=== PATIENT | male | born 1955 | race Caucasian/White ===

== ENCOUNTER → 2020-08-22 08:51 | Outpatient (POV) | payer OTHER, SELFPAY | PROVIDERS: Visit Provider Dermatology | DX: Z00.00 Encounter for general adult medical examination without abnormal findings (principal) ==

== ENCOUNTER → 2023-03-03 15:09 | Outpatient (CLI) | payer MEDICARE, OTHER, SELFPAY ==
[2023-03-03 16:23] LABS: Alanine Aminotransferase 62 U/L (12-78); Albumin Level 4.8 g/dl (3.5-5.0); Albumin/Globulin Ratio 1.7 (1.1-1.8); Alkaline Phosphatase 94 U/L (38-126); Anion Gap 15.1 mEq/L (5-15); Aspartate Amino Transferase 42 U/L (17-59); Bilirubin,Total 0.6 mg/dl (0.2-1.3); Blood Urea Nitrogen 19 mg/dl (9-20); Calcium 9.4 mg/dl (8.4-10.2); Carbon Dioxide 28 mmol/L (22.0-30.0); Chloride 103 mmol/L (98-107); Chol/HDL Ratio 4.7 (1-3.5); Cholesterol 214 mg/dl (140-200); Estimated Glomerular Filt Rate 67 ml/min (>60); GFR (African American) 81 ML/MIN (>60); Globulin 2.8 g/dL (1.3-3.2); Glucose 187 mg/dl (74-100); HDL Cholesterol 46 mg/dl (40-60); Potassium 5.1 mmoL/L (3.5-5.1); Sodium 141 mmol/L (136-145); Total Protein,Serum 7.6 g/dl (6.3-8.2); Triglycerides 346 mg/dl (30-150); VLDL Cholesterol 69 mg/dL (0-40)
[2023-03-03 16:47] LABS: Hemoglobin A1C 6.2 % (4.0-6.0)
== END ==
PROVIDERS: PCP Nurse Practitioner Family; Visit Provider Nurse Practitioner Family
DX: E78.5 Hyperlipidemia, unspecified (principal); R73.9 Hyperglycemia, unspecified
CPT/HCPCS: 80053; 80061; 83036

== ENCOUNTER 2023-07-14 13:09 | Outpatient (CLI) | payer MEDICARE, OTHER, SELFPAY ==
[2023-07-14 13:03] LABS: Basophils # 0.1 K/mm3 (0-0.2); Basophils % 0.8 % (0.1-2.0); Eosinophils # 0.1 K/mm3 (0.0-0.4); Eosinophils % 1.4 % (0.1-12.0); Hematocrit 50.2 % (42.0-52.0); Hemoglobin 16.2 g/dL (14.1-18.0); Lymphocytes # 1.3 K/mm3 (0.7-4.5); Lymphocytes % 14.2 % (10-50); Mean Corpuscular HGB Conc 32.4 g/dL (31.8-35.4); Mean Corpuscular Hemoglobin 31.7 pg (27.0-31.2); Mean Platelet Volume 8.6 fl (7.4-10.4); Monocytes # 0.7 K/mm3 (0.1-1.0); Monocytes % 8.1 % (1.7-9.3); Neutrophils # 6.7 K/mm3 (1.8-7.8); Neutrophils % 75.6 % (37.0-80.0); Platelet Count 225 K/mm3 (142-424); Red Blood Count 5.12 M/mm3 (4.60-6.20); Red Cell Distribution Width 13.1 % (11.5-17.5); White Blood Count 8.9 K/mm3 (4.8-10.8)
[2023-07-14 13:39] LABS: Alanine Aminotransferase 61 U/L (12-78); Albumin Level 5.2 g/dl (3.5-5.0); Albumin/Globulin Ratio 1.8 (1.1-1.8); Alkaline Phosphatase 109 U/L (38-126); Anion Gap 15.2 mEq/L (5-15); Aspartate Amino Transferase 44 U/L (17-59); Bilirubin,Total 0.7 mg/dl (0.2-1.3); Blood Urea Nitrogen 18 mg/dl (9-20); Calcium 10.6 mg/dl (8.4-10.2); Carbon Dioxide 27 mmol/L (22.0-30.0); Chloride 105 mmol/L (98-107); Chol/HDL Ratio 3.6 (1-3.5); Cholesterol 255 mg/dl (140-200); Estimated Glomerular Filt Rate 75 ml/min (>60); GFR (African American) 90 ML/MIN (>60); Globulin 2.9 g/dL (1.3-3.2); Glucose 145 mg/dl (74-100); HDL Cholesterol 71 mg/dl (40-60); Potassium 5.2 mmoL/L (3.5-5.1); Sodium 142 mmol/L (136-145); Total Protein,Serum 8.1 g/dl (6.3-8.2); Triglycerides 258 mg/dl (30-150); VLDL Cholesterol 52 mg/dL (0-40)
[2023-07-14 13:49] LABS: Direct LDL Cholesterol 135.14 mg/dL (100-129)
[2023-07-14 14:08] LABS: Thyroid Stimulating Hormone 1.47 uIU/mL (0.465-4.68)
[2023-07-14 15:31] LABS: Hemoglobin A1C 6.9 % (4.0-6.0)
== END 2023-07-14 23:59 | disposition home or self-care (01) ==
LOC: LAB.DROPOF 13:10
PROVIDERS: PCP Nurse Practitioner Family; Visit Provider Nurse Practitioner Family
DX: I10 Essential (primary) hypertension (principal); E78.5 Hyperlipidemia, unspecified; R73.09 Other abnormal glucose; K92.1 Melena; Z87.891 Personal history of nicotine dependence
CPT/HCPCS: 80053; 80061; 83036; 84443; 85025

== ENCOUNTER 2023-07-21 07:39 | Outpatient (CLI) | payer MEDICARE, OTHER, SELFPAY ==
--- NOTE | 2023-07-21 07:40 | CA_ITS ---
APPROVED REPORT EXAM: Comprehensive 2D, Doppler, and color-flow Echocardiogram Veterinary Meat Inspector: Dione Kessler RVT Ht: 5 ft 9 in Wt: 202lbs BSA: 2.07 BP: 118/110 mmHg Indications: MURMUR,HTN,HLD,CABG 2D Dimensions LA Volume 40.00 mL LA Volume Index 19.23 mL/m2 (M/F) 16-34 M-Mode Dimensions RVDd 3.10 cm (0.9-2.6) LA Diam 4.90 cm (1.9-4.0) LVDd 5.82 cm (3.5-5.7) LVDs 4.20 cm (3.5-5.7) IVSd 0.89 cm (0.6-1.1) PWd 0.76 cm (0.6-1.1) EF (Teich) 53.20% FS 27.80% EDV (Teich) 167.90 mL TAPSE 1.98 (<1.7) ESV (Teich) 78.60 mL LV Diastology E Decel Time 217 (160-240 msec) E/A Ratio 0.9 Aortic Valve MAHSA Index 1.82 cm2/m2 AoV Peak Zana. 244.0 (50-130 cm/s) AO Peak GR. 23.80 mmHg AO Mean GR. 11.90 (<5 mmHg) AO VTI 43.9 (18-25 cm) MAHSA (VTI) 3.86 (2.5-4.5 cm2) Mitral Valve MV E Max Zana. 79.0 (40-130 cm/s) MV A Velocity 91.0 (40-130 cm/s) E/A Ratio 0.87 MV PHT 63.0 ms Pulmonary Valve PV Peak Velocity 75.0 (50-150 cm/s) Left Ventricle The left ventricle is normal size. The left ventricular systolic function is normal. The left ventricular ejection fraction is within the normal range. There is increased LV wall thickness (IVSd 1.5 cm). There is no LVOT obstruction at rest. There is increased LVOT gradient with Valsalva maneuver at 35 mmHg. There is normal LV segmental wall motion. Diastolic function is indeterminate. LVEF is 60%. Right Ventricle The right ventricle is normal size. The right ventricular systolic function is normal. There is increased RV wall thickness. Atria Left atrium is mildly dilated. Right atrium is mildly dilated. There is no Doppler evidence of interatrial shunt. Aortic Valve The aortic valve is mildly thickened. There is no aortic valvular stenosis. No aortic regurgitation is present. Mitral Valve Chordal systolic anterior motion (LOWELL) is present. The mitral valve leaflets are mildly thickened. No evidence of mitral valve stenosis. Trace mitral regurgitation. Tricuspid Valve The tricuspid valve leaflets are thin and pliable. Trace tricuspid regurgitation. There is insufficient TR jet to estimate RVSP. Pulmonic Valve The pulmonary valve is normal in structure. Trace pulmonic regurgitation. Great Vessels The aortic root is normal in size. The ascending aorta is not well-visualized. IVC is normal in size and collapses >50% with inspiration. Pericardium There is no pericardial effusion. Other Information Study Quality: Fair Conclusion Normal biventricular systolic function. Increased LV wall thickness (IVSd 1.5 cm). There is no LVOT obstruction at rest. There is increased LVOT gradient with Valsalva maneuver at 35 mmHg. Mild biatrial dilation. No significant valvular stenosis or regurgitation. In the setting of increased LV wall thickness and mild biatrial dilation, further evaluation with cardiac MRI (amyloidosis protocol) and exercises stress echo to evaluate for provokable LVOT gradients are recommended. Electronically signed by : Leslee Ivy MD 07/24/2023 12:02:40
== END 2023-07-21 23:59 | disposition home or self-care (01) ==
LOC: RT 07:40
PROVIDERS: PCP Nurse Practitioner Family; Visit Provider Nurse Practitioner Family
DX: R01.1 Cardiac murmur, unspecified (principal)
CPT/HCPCS: 93306

== ENCOUNTER 2023-09-08 16:32 | Outpatient (CLI) | payer MEDICARE, OTHER, SELFPAY | END 2023-09-08 23:59 | disposition home or self-care (01) | LOC: LAB.DROPOF 16:34 | PROVIDERS: PCP Nurse Practitioner Family; Visit Provider Nurse Practitioner Family | DX: E11.9 Type 2 diabetes mellitus without complications (principal); E78.2 Mixed hyperlipidemia; I10 Essential (primary) hypertension ==

== ENCOUNTER 2023-09-10 08:48 | Outpatient (CLI) | payer MEDICARE, OTHER, SELFPAY ==
[2023-09-10 09:54] LABS: Hemoglobin A1C 6.1 % (4.0-6.0)
[2023-09-10 10:13] LABS: Chloride 104 mmol/L (98-107)
[2023-09-10 10:14] LABS: Potassium 4.6 mmoL/L (3.5-5.1); Sodium 138 mmol/L (136-145)
[2023-09-10 10:16] LABS: Alanine Aminotransferase 80 U/L (12-78); Aspartate Amino Transferase 42 U/L (17-59); Blood Urea Nitrogen 20 mg/dl (9-20); Estimated Glomerular Filt Rate 84 ml/min (>60); GFR (African American) 102 ML/MIN (>60)
[2023-09-10 10:17] LABS: Albumin Level 4.5 g/dl (3.5-5.0); Albumin/Globulin Ratio 1.9 (1.1-1.8); Alkaline Phosphatase 81 U/L (38-126); Anion Gap 11.6 mEq/L (5-15); Bilirubin,Total 0.4 mg/dl (0.2-1.3); Calcium 9.9 mg/dl (8.4-10.2); Carbon Dioxide 27 mmol/L (22.0-30.0); Globulin 2.4 g/dL (1.3-3.2); Glucose 122 mg/dl (74-100); Total Protein,Serum 6.9 g/dl (6.3-8.2)
== END 2023-09-10 23:59 | disposition home or self-care (01) ==
LOC: LAB 08:49
PROVIDERS: PCP Nurse Practitioner Family; Visit Provider Nurse Practitioner Family
DX: E11.9 Type 2 diabetes mellitus without complications (principal); I10 Essential (primary) hypertension; E78.2 Mixed hyperlipidemia; Z79.84 Long term (current) use of oral hypoglycemic drugs; Z87.891 Personal history of nicotine dependence
CPT/HCPCS: 36415; 80053; 83036

== ENCOUNTER 2023-12-15 13:50 | Outpatient (CLI) | payer MEDICARE, OTHER, SELFPAY ==
[2023-12-15 13:45] LABS: Microalbumin/Creatinine Ratio 96.6
[2023-12-15 13:47] LABS: Creatinine,Urine Random 139 mg/dL (Not Estab.)
[2023-12-15 14:16] LABS: Albumin Level 4.8 g/dl (3.5-5.0); Chloride 106 mmol/L (98-107)
[2023-12-15 14:17] LABS: Potassium 5.5 mmoL/L (3.5-5.1); Sodium 141 mmol/L (136-145)
[2023-12-15 14:19] LABS: Alanine Aminotransferase 36 U/L (12-78); Anion Gap 14.5 mEq/L (5-15); Aspartate Amino Transferase 28 U/L (17-59); Blood Urea Nitrogen 22 mg/dl (9-20); Carbon Dioxide 26 mmol/L (22.0-30.0); Estimated Glomerular Filt Rate 84 ml/min (>60); GFR (African American) 102 ML/MIN (>60)
[2023-12-15 14:20] LABS: Albumin/Globulin Ratio 1.8 (1.1-1.8); Alkaline Phosphatase 84 U/L (38-126); Bilirubin,Total 0.7 mg/dl (0.2-1.3); Calcium 9.5 mg/dl (8.4-10.2); Chol/HDL Ratio 3.8 (1-3.5); Cholesterol 160 mg/dl (140-200); Globulin 2.6 g/dL (1.3-3.2); Glucose 141 mg/dl (74-100); HDL Cholesterol 42 mg/dl (40-60); Total Protein,Serum 7.4 g/dl (6.3-8.2); Triglycerides 120 mg/dl (30-150); VLDL Cholesterol 24 mg/dL (0-40)
[2023-12-15 14:31] LABS: Direct LDL Cholesterol 86.49 mg/dL (100-129)
[2023-12-15 15:03] LABS: Hemoglobin A1C 6.1 % (4.0-6.0)
== END 2023-12-15 23:59 | disposition home or self-care (01) ==
LOC: LAB.DROPOF 13:51
PROVIDERS: PCP Nurse Practitioner Family; Visit Provider Nurse Practitioner Family
DX: E11.9 Type 2 diabetes mellitus without complications (principal); E78.2 Mixed hyperlipidemia; I10 Essential (primary) hypertension
CPT/HCPCS: 80053; 80061; 82043; 82570; 83036

== ENCOUNTER 2024-01-12 13:40 | Outpatient (CLI) | payer MEDICARE, OTHER, SELFPAY ==
[2024-01-12 13:02] LABS: Albumin Level 5.1 g/dl (3.5-5.0); Chloride 103 mmol/L (98-107); Sodium 137 mmol/L (136-145)
[2024-01-12 13:03] LABS: Potassium 5.6 mmoL/L (3.5-5.1)
[2024-01-12 13:05] LABS: Alanine Aminotransferase 41 U/L (12-78); Albumin/Globulin Ratio 1.8 (1.1-1.8); Alkaline Phosphatase 70 U/L (38-126); Anion Gap 13.6 mEq/L (5-15); Aspartate Amino Transferase 35 U/L (17-59); Bilirubin,Total 0.9 mg/dl (0.2-1.3); Blood Urea Nitrogen 17 mg/dl (9-20); Carbon Dioxide 26 mmol/L (22.0-30.0); Estimated Glomerular Filt Rate 84 ml/min (>60); GFR (African American) 102 ML/MIN (>60); Globulin 2.9 g/dL (1.3-3.2)
[2024-01-12 13:06] LABS: Calcium 9.8 mg/dl (8.4-10.2); Glucose 135 mg/dl (74-100)
== END 2024-01-12 23:59 | disposition home or self-care (01) ==
LOC: LAB.DROPOF 13:41
PROVIDERS: PCP Nurse Practitioner Family; Visit Provider Nurse Practitioner Family
DX: E11.9 Type 2 diabetes mellitus without complications (principal); E87.5 Hyperkalemia
CPT/HCPCS: 80053

== ENCOUNTER 2024-04-01 09:20 | Outpatient (CLI) | payer MEDICARE, OTHER, SELFPAY | END 2024-04-01 23:59 | disposition home or self-care (01) | LOC: LAB.DROPOF 04-03 09:04 | PROVIDERS: PCP Nurse Practitioner Family; Visit Provider Nurse Practitioner Family | DX: E11.9 Type 2 diabetes mellitus without complications (principal) | CPT/HCPCS: 36415; 80053; 80061; 82043; 82570; 83036; 83735; 84443 ==

== ENCOUNTER 2024-04-02 14:00 | Outpatient (CLI) | payer MEDICARE, OTHER, SELFPAY ==
[2024-04-02 13:59] LABS: Creatinine,Urine Random 110 mg/dL (Not Estab.)
[2024-04-02 14:25] LABS: Albumin Level 4.9 g/dl (3.5-5.0); Chloride 103 mmol/L (98-107); Potassium 4.9 mmoL/L (3.5-5.1); Sodium 141 mmol/L (136-145)
[2024-04-02 14:27] LABS: Alanine Aminotransferase 45 U/L (12-78); Aspartate Amino Transferase 28 U/L (17-59); Blood Urea Nitrogen 21 mg/dl (9-20); Estimated Glomerular Filt Rate 75 ml/min (>60); GFR (African American) 90 ML/MIN (>60)
[2024-04-02 14:28] LABS: Albumin/Globulin Ratio 1.9 (1.1-1.8); Alkaline Phosphatase 91 U/L (38-126); Anion Gap 16.9 mEq/L (5-15); Bilirubin,Total 0.7 mg/dl (0.2-1.3); Calcium 9.7 mg/dl (8.4-10.2); Carbon Dioxide 26 mmol/L (22.0-30.0); Chol/HDL Ratio 3.7 (1-3.5); Cholesterol 181 mg/dl (140-200); Globulin 2.6 g/dL (1.3-3.2); Glucose 150 mg/dl (74-100); HDL Cholesterol 49 mg/dl (40-60); Magnesium 2.1 mg/dl (1.6-2.3); Total Protein,Serum 7.5 g/dl (6.3-8.2); Triglycerides 148 mg/dl (30-150); VLDL Cholesterol 30 mg/dL (0-40)
[2024-04-02 14:39] LABS: Direct LDL Cholesterol 106.68 mg/dL (100-129)
[2024-04-02 15:12] LABS: Hemoglobin A1C 6.7 % (4.0-6.0)
[2024-04-02 15:24] LABS: Thyroid Stimulating Hormone 1.53 uIU/mL (0.465-4.68)
== END 2024-04-02 23:59 | disposition home or self-care (01) ==
LOC: LAB.DROPOF 04-06 13:47
PROVIDERS: PCP Nurse Practitioner Family; Visit Provider Nurse Practitioner Family
DX: E11.9 Type 2 diabetes mellitus without complications (principal); E87.5 Hyperkalemia; I10 Essential (primary) hypertension; E78.2 Mixed hyperlipidemia
CPT/HCPCS: 36415; 80053; 80061; 82043; 82570; 83036; 83735; 84443

== ENCOUNTER 2024-07-09 08:13 | Outpatient (CLI) | payer MEDICARE, OTHER, SELFPAY ==
[2024-07-09 15:11] LABS: Chloride 103 mmol/L (98-107); Potassium 5.5 mmoL/L (3.5-5.1); Sodium 142 mmol/L (136-145)
[2024-07-09 15:13] LABS: Alanine Aminotransferase 46 U/L (12-78); Aspartate Amino Transferase 33 U/L (17-59); Blood Urea Nitrogen 22 mg/dl (9-20); Estimated Glomerular Filt Rate 75 ml/min (>60); GFR (African American) 90 ML/MIN (>60)
[2024-07-09 15:14] LABS: Albumin/Globulin Ratio 1.7 (1.1-1.8); Alkaline Phosphatase 98 U/L (38-126); Anion Gap 17.5 mEq/L (5-15); Bilirubin,Total 0.7 mg/dl (0.2-1.3); Calcium 9.8 mg/dl (8.4-10.2); Carbon Dioxide 27 mmol/L (22.0-30.0); Chol/HDL Ratio 3.5 (1-3.5); Cholesterol 194 mg/dl (140-200); Globulin 2.9 g/dL (1.3-3.2); Glucose 144 mg/dl (74-100); HDL Cholesterol 55 mg/dl (40-60); Magnesium 2.1 mg/dl (1.6-2.3); Total Protein,Serum 7.9 g/dl (6.3-8.2); Triglycerides 177 mg/dl (30-150); VLDL Cholesterol 35 mg/dL (0-40)
[2024-07-09 15:25] LABS: Direct LDL Cholesterol 108.34 mg/dL (100-129)
[2024-07-09 15:28] LABS: Creatinine,Urine Random 80 mg/dL (Not Estab.)
[2024-07-09 15:29] LABS: Microalbumin/Creatinine Ratio 102.3
[2024-07-09 15:45] LABS: Hemoglobin A1C 6.4 % (4.0-6.0)
--- OUTSIDE RECORDS SUMMARY | 2024-07-12 08:15 | XMS_ITS | Data Portability ---
Author Organization [place] - [facility] ADMIN Address [address] [place] [id number] Care Team Providers Care Base Filler Name Role Phone LEOROMA CORDOVA Primary Care Provider Assessment No assessment recorded. Plan of Treatment Reminders Order Date Submit Date Provider Last Modified By Organization Details Last Modified Time Details Appointments SURGERY 15 2024 06:30A M Chey Jackson MD Not available Not available Not available Lab None recorded . Referral None recorded . Procedures None recorded . Surgeries None recorded . Imaging None recorded . Medication Orders None recorded . Patient TargetsNo targets recorded. Patient InstructionsNo instructions recorded. Reason for Referral None Reported. Results Created Date Observation Date Name Description Value Unit Range Abnormal Flag Note LastModifiedBy Organization Detail LastModifiedTime 07/30/19 24 07/30/2023 CBC AUTO NO DIFF (HEMO GRAM) WBC 6.7 K/uL 4.0-10 .5 Not Available [facility] ([facility]) [address] , [place], [address], 07/30/2023 10:54:27 07/30/19 24 07/30/2023 CBC AUTO NO DIFF (HEMO GRAM) RBC 4.7 M/mm3 4.7-6. 1 Not Available [facility] ([facility]) [address], [place], [address], 07/30/2023 10:54:27 07/30/19 24 07/30/2023 CBC AUTO NO DIFF (HEMO GRAM) HGB 14.9 gm/dL 13.5-1 8.0 Not Available [facility] ([facility]) [address] , [place], [address], 07/30/2023 10:54:27 07/30/19 24 07/30/2023 CBC AUTO NO DIFF (HEMO GRAM) HCT 44.1 % 42.0-5 2.0 Not Available [facility] ([facility]) [address], [place], [address], 07/30/2023 10:54:27 07/30/19 24 07/30/2023 CBC AUTO NO DIFF (HEMO GRAM) MCV 93.4 fL 78-100 Not Available [facility] ([facility]) [address], [place], [address], 07/30/2023 10:54:27 07/30/19 24 07/30/2023 CBC AUTO NO DIFF (HEMO GRAM) MCH 31.6 pg 27-31 high Not Available [facility] ([facility]) [address], [place], [address], 07/30/2023 10:54:27 07/30/19 24 07/30/2023 CBC AUTO NO DIFF (HEMO GRAM) MCHC 33.8 g/dL 32-36 Not Available [facility] ([facility]) [address] [place], [address], 07/30/2023 10:54:27 07/30/19 24 07/30/2023 CBC AUTO NO DIFF (HEMO GRAM) RDW 12.3 % 11.5-1 4.0 Not Available [facility] ([facility]) [address] [place], [address], 07/30/2023 10:54:27 07/30/19 24 07/30/2023 CBC AUTO NO DIFF (HEMO GRAM) platelet count 185 K/uL 150-45 0 Not Available [facility] ([facility]) [address] [place], [address], 07/30/2023 10:54:27 07/30/19 24 07/30/2023 CBC AUTO NO DIFF (HEMO GRAM) MPV 9.7 fL 6-9.5 high Not Available [facility] ([facility]) [address] , [place], [address], 07/30/2023 10:54:27 07/30/19 24 07/30/2023 CBC AUTO NO DIFF (HEMO GRAM) manual differential NO Not Available [facility] ([facility]) [address] , [place], [address], 07/30/2023 10:54:27 07/30/19 24 07/30/2023 PT (PROT HROMB IN TIME) W INR prothrombin time 10.1 secon ds 9.3-11 .4 Not Available [facility] ([facility]) [address] , [place], [address], 07/30/2023 11:23:19 07/30/19 24 07/30/2023 PT (PROT HROMB IN TIME) W INR INR 1.0 ratio 0.97-1 .05 INR is inten ded to be used ONLY for patie nts on stabl e oral antic oagul ant thera py. Thera peuti c Range s: 2.0-3 .0 Usual Thera peuti c Range 2.5-3 .5 For patie nts with histo ry of Multi ple Deep Vein Throm bus or Mecha nical Heart Valve s Not Available [facility] ([facility]) [address] , [place], [address], 07/30/2023 11:23:19 07/30/19 24 07/30/2023 COMP METAB OLIC PANEL sodium 139 mmol/ L 136-14 5 Not Available [facility] ([facility]) [address] , [place], [address], 07/30/2023 11:34:15 07/30/19 24 07/30/2023 COMP METAB OLIC PANEL potassium 4.5 mmol/ L 3.6-5. 0 Not Available [facility] ([facility]) [address], [place], [address], 07/30/2023 11:34:15 07/30/19 24 07/30/2023 COMP METAB OLIC PANEL chloride 103 mmol/ L 98-107 Not Available [facility] ([facility]) [address] , [place], [address], 07/30/2023 11:34:15 07/30/19 24 07/30/2023 COMP METAB OLIC PANEL carbon dioxide 26.6 mmol/ L 21.0-3 2.0 Not Available [facility] ([facility]) [address] , [place], [address], 07/30/2023 11:34:15 07/30/19 24 07/30/2023 COMP METAB OLIC PANEL anion gap 13.9 Not Available [facility] ([facility]) [address] , [place], [address], 07/30/2023 11:34:15 07/30/19 24 07/30/2023 COMP METAB OLIC PANEL glucose 121 mg/dL 70-120 high Not Available [facility] ([facility]) [address] , [place], [address], 07/30/2023 11:34:15 07/30/19 24 07/30/2023 COMP METAB OLIC PANEL BUN 15 mg/dL 7-18 Not Available [facility] ([facility]) [address] [place], [address], 07/30/2023 11:34:15 07/30/19 24 07/30/2023 COMP METAB OLIC PANEL creatinine 1.1 mg/dL 0.6-1. 3 Not Available [facility] ([facility]) [address] [place], [address], 07/30/2023 11:34:15 07/30/19 24 07/30/2023 COMP METAB OLIC PANEL glomerular filtration rate >60 mlper min 60- Not Available [facility] ([facility]) [address], [place], [address], 07/30/2023 11:34:15 07/30/19 24 07/30/2023 COMP METAB OLIC PANEL total protein 7.2 g/dL 6.4-8. 2 Not Available [facility] ([facility]) [address] , [place], [address], 07/30/2023 11:34:15 07/30/19 24 07/30/2023 COMP METAB OLIC PANEL albumin 4.3 g/dL 3.4-5. 0 Not Available [facility] ([facility]) [address] , [place], [address], 07/30/2023 11:34:15 07/30/19 24 07/30/2023 COMP METAB OLIC PANEL globulin 2.9 Not Available [facility] ([facility]) [address] , [place], [address], 07/30/2023 11:34:15 07/30/19 24 07/30/2023 COMP METAB OLIC PANEL alb/glob ratio 1.5 0.7-2 Not Available [facility] ([facility]) [address] , [place], [address], 07/30/2023 11:34:15 07/30/19 24 07/30/2023 COMP METAB OLIC PANEL calcium 9.2 mg/dL 8.5-10 .5 Not Available [facility] ([facility]) [address] , [place], [address], 07/30/2023 11:34:15 07/30/19 24 07/30/2023 COMP METAB OLIC PANEL bilirubin total 0.70 mg/dL 0.10-1 .00 Not Available [facility] ([facility]) [address], [place], [address], 07/30/2023 11:34:15 07/30/19 24 07/30/2023 COMP METAB OLIC PANEL AST (SGOT) 35 U/L 0-37 Not Available [facility] ([facility]) [address], [place], [address], 07/30/2023 11:34:15 07/30/19 24 07/30/2023 COMP METAB OLIC PANEL ALT (SGPT) 76 U/L 0-65 high Not Available [facility] ([facility]) [address], [place], [address], 07/30/2023 11:34:15 07/30/19 24 07/30/2023 COMP METAB OLIC PANEL alk phosphatase 98 U/L 46-116 Not Available [facility] ([facility]) [address], [place], [address], 07/30/2023 11:34:15 07/30/19 24 07/31/2023 CEA cea 3.9 NG/mL 0.0-4. 7 Nonsm okers <3.9 Smoke rs <5.6 . 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 Value s obtai geno with diffe rent assay metho ds or kits canno t be used inter childs earosalioy . Resul ts canno t be inter prete d as absol dillon evide nce of the prese nce [facility] . Perfo rmed at: - [facility] [place] [id number] [place] [address] Lab Direc tor: Alexandro aguilar PhD, Phone : [phone] Not Available [facility] ([facility]) [address], [place], [address], 07/31/2023 13:12:11 05/01/07/30/2023 CT, chest , w/ contr ast [facility] [address] [place] [address] Phone: Fax: Name: RONALD MARQUEZ Exam Date: 07/30/19 : 958 Age 68 years Gender : M Access ion: [id number] Physic myron: CASE, CHEY Facili ty: [place] Facili ty HSV: Outpat ient Exam: CT CHEST W CT CHEST, ABDOME N, AND PELVIS WITH CONTRA ST HISTOR Y: Colon mass. COMPAR GAURI: None. TECHNI QUE: Axial images were obtain ed from the lung apices throug h the pubic symphy sis by comput ed tomogr aphy after the admini strati on of IV contra st. Oral contra st was also admini stered . This study was perfor med with techni ques to keep radiat ion doses as low as reason ably achiev able, (ALARA ). Indivi dualiz ed dose reduct ion techni ques using automa marly exposu re contro l or adjust ment of mA and/or kV accord ing to the patien t's size were employ ed. FINDIN GS: Chest: There are multip le median sterno kailey wires. Heart size is enlarg ed. There is scatte red calcif ied residu a of old granul omatou s diseas e. There is no noncal cified adenop athy. A 2 mm nodule is identi fied in the right upper lobe on image 31. There is no pleura l or perica rdial effusi on. No acute osseou s change s are identi fied. Abdome n: There is fatty infilt ration of the liver. The gallbl adder is presen t. Spleen is normal in size. There is scatte red calcif ied residu a of old granul omatou s diseas e. There is no pancre atic mass or inflam matory change . Adrena l glands are unrema rkable . There is no hydron ephros is. There is athero sclero sis withou t aneury sm. There is no periao rtic adenop athy. No abnorm ally dilate d bowel is identi fied. Pelvis : There is a soft tissue mass in the region of the rectos igmoid juncti on. Correl ate with colono scopy result s. This measur es approx imatel y 2.7 x 2.6 cm. The findin g is best seen on image 67 of series 4. There is divert iculos is of the left colon. Oral contra st is seen in the colon. The append ix is normal . Urinar y bladde r is decomp ressed . There are bilate ral fat-co ntaini ng inguin al hernia s. There is no free fluid in the pelvis . No acute osseou s change s are identi fied. CONCLU MEGHANA: Right upper lobe pulmon inés nodule . Recomm end follow -up in 12 months . Soft tissue mass in the colon. Correl ate with colono scopy. No eviden ce of metast atic diseas e apprec iated. The films were review ed, interp reted, and dictat ed by Dr. Correa Transc ribed by Berto Amato PA-C Dictat ed By: JEREMY CORREA Transc ribed By: Jeremy Correa Transc ribed On: 07/30/19 12:28 PM Electr onical ly signed by: JEREMY CORREA 07/30/19 Thank you for referr RONALD Ortega to [facility]. Legall y authen ticate d by POPE JEREMY Julio 07-29 12:28: 02 CC'ed Logic: Orderi ng Provid er: CASE CHEY Attend ing Provid er: CASE CHEY Admitt ing Provid er: CASE CHEY [email or web address] [facility] [address] [facility], [place], [address], 08/06/2023 15:30:59 Result Notes None recorded. Procedures Surgical History Date Name Laterality Status Provider Name and Address Organization Details Recorded Time 2 Cancer Surgery completed Hilary RODRIGUEZ [facility] [place] 08/06/2023 10:26:40 2 Cancer Surgery completed Hilary RODRIGUEZ [facility] [place] 08/06/2023 10:26:26 procedure on heart completed Hilary WESLEY - [facility]NT [facility] [place] 08/06/2023 10:27:32 Imaging Results Imaging Date Name Status LastModified by Organiz ation Details LastModified Time 07/30/2023 CT, chest, w/ contrast completed [email or web address] [facility] [address], [place], [address], 08/06/2023 15:30:59 Procedure Notes None recorded. Medical Equipment None Reported. Allergies No known drug allergies Medications Name Sig Start Date Stop Date Status Note LastModified by Organization Details LastModified Time atorvastati n 40 mg tablet TAKE 1 TABLET BY MOUTH ONCE DAILY active Not Available Not Available No t Available metoprolol succinate ER 50 mg tablet,exte nded release 24 hr TAKE 1 TABLET BY MOUTH ONCE DAILY active Not Available Not Available No t Available lisinopril 5 mg tablet TAKE 1 TABLET BY MOUTH ONCE DAILY active Not Available Not Available No t Available metformin ER 500 mg tablet,exte nded release 24 hr TAKE 1 TABLET BY MOUTH ONCE DAILY active Not Available Not Available No t Available peg 3350-electr olytes 236 gram-22.74 gram-6.74 gram-5.86 gram solution DRINK 2000ML EVERY DAY BY MOUTH DIRECTED FOR 2 DAYS 08/02 completed Not Available Not Available Not Available Accu-Chek Guide test strips USE 1 STRIP THREE TIMES DAILY active Not Available Not Available No t Available Accu-Chek Guide Glucose Meter USE 1 TO CHECK GLUCOSE THREE TIMES DAILY 08/02 completed Not Available Not Available Not Available Vitals Date Recorded Body height Body mass index (BMI) Body weight Body temperature Oxygen saturation Oxygen saturation in Arterial blood by Pulse oximetry Heart rate Systolic blood pressure Diastolic blood pressure Provider Name and Address Organization Details Last Updated DateTime 4 172.72 cm 30.7 kg/m2 91228.3 g 98.9 [degF] 98 % 98 % 74 /min 211 mm[Hg] 101 mm[Hg] Hilary Grier [place] - [facility]NT [facility] [place] 10:23:49 Social History Question Answer Notes LastModified by Organizat ion Details LastModified Time Tobacco Smoking Status Current Every Day Smoker Hilary Grier [facility], [place] - [place] [facility] [place] 08/06/2023 10:24:11 Do You Have An Advance Directive? Yes [email or web address] Information not available 08/06/2023 What Is Your Level Of Alcohol Consumption? Moderate [email or web address] Information not available 08/06/2023 Are You Blind Or Do You Have Difficulty Seeing? No [email or web address] Information not available 08/06/2023 What Is Your Level Of Caffeine Consumption? None [email or web address] Information not available 08/06/2023 What Was The Date Of Your Most Recent Tobacco Screening? 08/03/2023 [email or web address] Information not available 08/06/2023 Are You Passively Exposed To Smoke? No [email or web address] Information no t available 08/06/2023 Do You Or Have You Ever Used Smokeless Tobacco? Never Used Smokeless Tobacco Information not available 08/06/2023 How Much Tobacco Do You Smoke? 0.5 PPD [email or web address] Information not available 08/06/2023 Do You Feel Stressed (tense, Restless, Nervous, Or Anxious, Or Unable To Sleep At Night)? [id number] [email or web address] Information not available 08/06/2023 Do You Use Any Illicit Or Recreational Drugs? No [email or web address] Information not available 08/06/2023 Has Tobacco Cessation Counseling Been Provided? No [email or web address] Information not available 08/06/2023 How Many Years Have You Smoked Tobacco? 40 [email or web address] Information not available 08/06/2023 Do You Or Have You Ever Used Any Other Forms Of Tobacco Or Nicotine? No [email or web address] Information not available 08/06/2023 Sex: Unknown Functional Status Question Answer Note LastModified by Organizat ion Details LastModified Time What is your exercise level? Occasional Information not available 08/06/2023 Mental Status None recorded. Family History Relationship Description Onset Age of this Age Resolved Age Notes LastModified by Organization Details LastModified Time Father Carcinoma in situ of urinary bladder primar y [email or web address] Not available 08/06/2023 10:25:15 Father Carcinoma of prostate primar y 19 yrs apart from leora r [email or web address] Not available 08/06/2023 10:25:38 Medical History Condition Response Hypertension Y High Cholesterol Y Past Encounters Encounter ID Performer Location Encounter Start Date Encounter Closed Date Diagnosis/Indication Diagnosis SNOMED-CT Code Diagnosis ICD10 Code Diagnosis Note [id number] Nikko Perales MD [facility] [address] [place] [address] 08/06/2023 10:04:38 08/06/2023 11:18:46 Rectal mass [id number] R19.00 Colonoscop y on July 30, 2023 demonstrat ed in the ascending colon multiple polyps that were resected. Findings of tubular adenoma multiple fragments with negative findings for any high-grade dysplasia or malignancy . Polyps in the transverse colon resected with findings of tubular adenoma multiple fragments negative for high-grade dysplasia or malignancy . Polyps in the descending colon found with tubular adenoma. Negative for high-grade dysplasia or malignancy . Multiple fragments of sessile serrated polyp. Negative for Cytotec epic atypia. Colon mass seen at 20 cm. Biopsies taken with superficia l fragments of colonic mucosa demonstrat ing focal high-grade dysplasia. CT scan of the chest abdomen pelvis performed on July 30, 2023. Signs of median sternotomy from prior cardiac surgery. No calcified lymph nodes or nodules. Small pulmonary nodule 2 mm in the right upper lobe. No pericardia l or pleural effusion. Fatty infiltrati on of the liver. No evidence of mass in the abdomen. In the pelvis soft tissue mass in the region of the rectosigmo id junction. Mass measures 2.7 x 2.6 cm. Diverticul osis of the left colon. Labs on July 30, 2023 with white blood cell count 6.7. Hemoglobin 14.9 and hematocrit 44.1. Platelet count [id number]. Normal renal function testing with GFR greater than 60. Normal total protein and albumin. Patient presents for evaluation on August 06, 2023. Discussed findings rectosigmo id mass on colonoscop y. Patient has evaluation with colorectal surgery upcoming. Discussed patient has at least serrated adenoma with high-grade dysplasia which needs to be resected. Will follow up additional testing for any invasive cancer. Multiple polyps seen on colonoscop y. Discussed considerat ion for genetic testing. Will follow-up Patient has appointmen t with Colorectal surgery [facility]. Will follow-up evaluation . Health Concerns Section Related Observation LastModified by Organization Detai ls LastModified Time None Recorded Concern Status LastModified by Organization Details LastModified Time None Recorded Advance Directives Directive Y: Payers Encounter Date Sequence Insurance Name Policy Number Policy Swenson Covered Member ID Swenson Member ID Guarantor Name 08/06/2023 1 [place]ARE[place] Salomón Marquez [id number] 2 Salomón Marquez 08/06/2023 2 [employer] - [employer] (MEDICARE SUPPLEMENT) Salomón Marquez [id number] Salomón Marquez Notes Date Note Type Note Provider Name and Address Organization Details Recorded Time 08/06/2023 text/html 68 yo M presents for evaluation of rectal mass. Patient recently seen by Gastroenterology and had colonoscopy performed on July 30, 2023. Colonoscopy on July 30, 2023 demonstrated in the ascending colon multiple polyps that were resected. Findings of tubular adenoma multiple fragments with negative findings for any high-grade dysplasia or malignancy. Polyps in the transverse colon resected with findings of tubular adenoma multiple fragments negative for high-grade dysplasia or malignancy. Polyps in the descending colon found with tubular adenoma. Negative for high-grade dysplasia or malignancy. Multiple fragments of sessile serrated polyp. Negative for Cytotec epic atypia. Colon mass seen at 20 cm. Biopsies taken with superficial fragments of colonic mucosa demonstrating focal high-grade dysplasia. CT scan of the chest abdomen pelvis performed on July 30, 2023. Signs of median sternotomy from prior cardiac surgery. No calcified lymph nodes or nodules. Small pulmonary nodule 2 mm in the right upper lobe. No pericardial or pleural effusion. Fatty infiltration of the liver. No evidence of mass in the abdomen. In the pelvis soft tissue mass in the region of the rectosigmoid junction. Mass measures 2.7 x 2.6 cm. Diverticulosis of the left colon. Labs on July 30, 2023 with white blood cell count 6.7. Hemoglobin 14.9 and hematocrit 44.1. Platelet count [id number]. Normal renal function testing with GFR greater than 60. Normal total protein and albumin. Patient presents for evaluation on August 06, 2023. Discussed findings rectosigmoid mass on colonoscopy. Patient has evaluation with colorectal surgery upcoming. Discussed patient has at least serrated adenoma with high-grade dysplasia which needs to be resected. Will follow up additional testing for any invasive cancer. Multiple polyps seen on colonoscopy. Discussed consideration for genetic testing. Will follow-up Nikko Perales MD [address], [place], [address], [place] - [facility] [place] [facility] [place] 08/06/2023 11:18:01
== END 2024-07-09 23:59 | disposition home or self-care (01) ==
LOC: LAB.DROPOF 07-12 08:14
PROVIDERS: PCP Nurse Practitioner Family; Visit Provider Nurse Practitioner Family
DX: E11.9 Type 2 diabetes mellitus without complications (principal); I10 Essential (primary) hypertension; E78.2 Mixed hyperlipidemia
CPT/HCPCS: 80053; 80061; 82043; 82570; 83036; 83735

== ENCOUNTER 2024-08-10 08:37 | Outpatient (CLI) | payer MEDICARE, OTHER, SELFPAY ==
--- OUTSIDE RECORDS SUMMARY | 2024-08-10 08:39 | XMS_ITS | Data Portability ---
Author Organization [place] - [facility] & [facility] ADMIN Address [address] [place] [address] Care Team Providers Care [employer] Switchboard Operator Name Role Phone LEOROMA CORDOVA Primary Care Provider [phone] Assessment No assessment recorded. Plan of Treatment Reminders Order Date Submit Date Provider Last Modified By Organization Details Last Modified Time Details Appointments SURGERY 15 2024 09:30A M Chey Jackson MD Not available Not [...] WBC 6.7 K/uL 4.0-10 .5 Not Available [facility] ([facility]) [address] , [place], [address], 07/30/2023 10:54:27 07/30/19 24 07/30/2023 CBC AUTO NO DIFF (HEMO GRAM) RBC 4.7 M/mm3 4.7-6. 1 Not Available [facility] ([facility]) [address], [place], [address], 07/30/2023 10:54:27 07/30/19 24 07/30/2023 CBC AUTO NO DIFF (HEMO GRAM) HGB 14.9 gm/dL 13.5-1 8.0 Not Available [facility] ([facility]) [address] , [place], [address], 07/30/2023 10:54:27 07/30/19 24 07/30/2023 CBC AUTO NO DIFF (HEMO GRAM) HCT 44.1 % 42.0-5 2.0 Not Available [facility] ([facility]) [address], [place], [address], 07/30/2023 10:54:27 07/30/19 24 07/30/2023 CBC AUTO NO DIFF (HEMO GRAM) MCV 93.4 fL 78-100 Not Available [facility] ([facility]) [address], [place], [address], 07/30/2023 10:54:27 07/30/19 24 07/30/2023 CBC AUTO NO DIFF (HEMO GRAM) MCH 31.6 pg 27-31 high Not Available [facility] ([facility]) [address], [place], [address], 07/30/2023 10:54:27 07/30/19 24 07/30/2023 CBC AUTO NO DIFF (HEMO GRAM) MCHC 33.8 g/dL 32-36 Not Available [facility] ([facility]) [address] [place], [address], 07/30/2023 10:54:27 07/30/19 24 07/30/2023 CBC AUTO NO DIFF (HEMO GRAM) RDW 12.3 % 11.5-1 4.0 Not Available [facility] ([facility]) [address] [place], [address], 07/30/2023 10:54:27 07/30/19 24 07/30/2023 CBC AUTO NO DIFF (HEMO GRAM) platelet count 185 K/uL 150-45 0 Not Available [facility] ([facility]) [address] [place], [address], 07/30/2023 10:54:27 07/30/19 24 07/30/2023 CBC AUTO NO DIFF (HEMO GRAM) MPV 9.7 fL 6-9.5 high Not Available [facility] ([facility]) [address] , [place], [address], 07/30/2023 10:54:27 07/30/19 24 07/30/2023 CBC AUTO NO DIFF (HEMO GRAM) manual differential NO Not Available [facility] ([facility]) [address] , [place], [address], 07/30/2023 10:54:27 07/30/19 24 07/30/2023 PT (PROT HROMB IN TIME) W INR prothrombin time 10.1 secon ds 9.3-11 .4 Not Available [facility] ([facility]) [address] , [place], [address], 07/30/2023 11:23:19 07/30/19 24 07/30/2023 PT (PROT [...] Mecha nical Heart Valve s Not Available [facility] ([facility]) [address] , [place], [address], 07/30/2023 11:23:19 07/30/19 24 07/30/2023 COMP METAB OLIC PANEL sodium 139 mmol/ L 136-14 5 Not Available [facility] ([facility]) [address] , [place], [address], 07/30/2023 11:34:15 07/30/19 24 07/30/2023 COMP METAB OLIC PANEL potassium 4.5 mmol/ L 3.6-5. 0 Not Available [facility] ([facility]) [address], [place], [address], 07/30/2023 11:34:15 07/30/19 24 07/30/2023 COMP METAB OLIC PANEL chloride 103 mmol/ L 98-107 Not Available [facility] ([facility]) [address] , [place], [address], 07/30/2023 11:34:15 07/30/19 24 07/30/2023 COMP METAB OLIC PANEL carbon dioxide 26.6 mmol/ L 21.0-3 2.0 Not Available [facility] ([facility]) [address] , [place], [address], 07/30/2023 11:34:15 07/30/19 24 07/30/2023 COMP METAB OLIC PANEL anion gap 13.9 Not Available [facility] ([facility]) [address] , [place], [address], 07/30/2023 11:34:15 07/30/19 24 07/30/2023 COMP METAB OLIC PANEL glucose 121 mg/dL 70-120 high Not Available [facility] ([facility]) [address] , [place], [address], 07/30/2023 11:34:15 07/30/19 24 07/30/2023 COMP METAB OLIC PANEL BUN 15 mg/dL 7-18 Not Available [facility] ([facility]) [address] [place], [address], 07/30/2023 11:34:15 07/30/19 24 07/30/2023 COMP METAB OLIC PANEL creatinine 1.1 mg/dL 0.6-1. 3 Not Available [facility] ([facility]) [address] [place], [address], 07/30/2023 11:34:15 07/30/19 24 07/30/2023 COMP METAB OLIC PANEL glomerular filtration rate >60 mlper min 60- Not Available [facility] ([facility]) [address], [place], [address], 07/30/2023 11:34:15 07/30/19 24 07/30/2023 COMP METAB OLIC PANEL total protein 7.2 g/dL 6.4-8. 2 Not Available [facility] ([facility]) [address] , [place], [address], 07/30/2023 11:34:15 07/30/19 24 07/30/2023 COMP METAB OLIC PANEL albumin 4.3 g/dL 3.4-5. 0 Not Available [facility] ([facility]) [address] , [place], [address], 07/30/2023 11:34:15 07/30/19 24 07/30/2023 COMP METAB OLIC PANEL globulin 2.9 Not Available [facility] ([facility]) [address] , [place], [address], 07/30/2023 11:34:15 07/30/19 24 07/30/2023 COMP METAB OLIC PANEL alb/glob ratio 1.5 0.7-2 Not Available [facility] ([facility]) [address] , [place], [address], 07/30/2023 11:34:15 07/30/19 24 07/30/2023 COMP METAB OLIC PANEL calcium 9.2 mg/dL 8.5-10 .5 Not Available [facility] ([facility]) [address] , [place], [address], 07/30/2023 11:34:15 07/30/19 24 07/30/2023 COMP METAB OLIC PANEL bilirubin total 0.70 mg/dL 0.10-1 .00 Not Available [facility] ([facility]) [address], [place], [address], 07/30/2023 11:34:15 07/30/19 24 07/30/2023 COMP METAB OLIC PANEL AST (SGOT) 35 U/L 0-37 Not Available [facility] ([facility]) [address], [place], [address], 07/30/2023 11:34:15 07/30/19 24 07/30/2023 COMP METAB OLIC PANEL ALT (SGPT) 76 U/L 0-65 high Not Available [facility] ([facility]) [address], [place], [address], 07/30/2023 11:34:15 07/30/19 24 07/30/2023 COMP METAB OLIC PANEL alk phosphatase 98 U/L 46-116 Not Available [facility] ([facility]) [address], [place], [address], 07/30/2023 11:34:15 07/30/19 24 07/31/2023 CEA cea 3.9 NG/mL 0.0-4. 7 Nonsm okers <3.9 Smoke rs <5.6 . 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 Value s obtai geno with diffe rent assay metho ds or kits canno t be used inter childs earosalioy . Resul ts canno t be inter prete d as absol ysleta del sur evide nce of the prese nce or [facility]en [facility] . Perfo rmed at: - [facility] [place] [address] [place] [address] Lab Direc tor: Alexandro aguilar PhD, Phone : [phone] Not Available [facility] ([facility]) [address], [place], [address], 07/31/2023 13:12:11 05/01/07/30/2023 CT, chest , w/ contr ast [facility] [address] [place] [address] Phone: Fax: Name: RONALD MARQUEZ Exam Date: 07/30/19 : 958 Age 68 years Gender : M Access ion: [id number] Physic myron: CASE, CHEY Facili ty: [facility] Facili ty HSV: Outpat ient [...] s change s are identi fied. CONCLU EMGHANA: Right upper lobe pulmon inés nodule . [...] Thank you for referr RONALD [facility] to [facility]. Legall y authen ticate d by POPE JEREMY Julio 07-29 12:28: 02 CC'ed Logic: Orderi ng Provid er: CASE CHEY Attend ing Provid er: CASE CHEY Admitt ing Provid er: CASE CHEY [email or web address] [facility] [address], [place], [address], 08/06/2023 15:30:59 Result Notes None recorded. Procedures Surgical History Date Name Laterality Status Provider Name and Address Organization Details Recorded Time 2 Cancer Surgery completed Hilary RODRIGUEZ [facility] & [place] 08/06/2023 10:26:40 2 Cancer Surgery completed Hilary RODRIGUEZ [facility] & [place] 08/06/2023 10:26:26 procedure on heart completed Hilary Grier [facility] & [place] 08/06/2023 10:27:32 Imaging Results Imaging Date Name Status LastModified by Rmaoniz danielle Details LastModified Time 07/30/2023 CT, chest, w/ contrast completed [email or web address] [facility] [address], [place], [address], 08/06/2023 15:30:59 Procedure Notes None recorded. Medical [...] completed Not Available Not Available Not Available sodium,pota ssium,mag sulfates 17.5 gram-3.13 gram-1.6 gram oral soln Take 6 ounces twice a day by oral route as directed for 1 day, for colonosco py prep. 2024 active Not Available Not Available Not Avai lable Accu-Chek Guide test strips USE 1 STRIP [...] Updated DateTime 4 172.72 cm 30.7 kg/m2 17930.3 g 98.9 [degF] 98 % 98 % 74 /min 211 mm[Hg] 101 mm[Hg] Hilary WESLEY [facility] & [place] 10:23:49 Social History Question Answer Notes LastModified by Organizat ion Details LastModified Time Tobacco Smoking Status Current Every Day Smoker Hilary Grier [facility], [facility] & [place] 08/06/2023 10:24:11 Do You Have An Advance Directive? Yes [email or web address] Information not available 08/06/2023 Are You Blind Or Do You Have Difficulty Seeing? No Information not available 08/06/2023 What Is Your Level Of Caffeine Consumption? None [email or web address] Information not available 08/06/2023 What Was The Date Of Your Most Recent Tobacco Screening? 08/03/2023 [email or web address] Information not available 08/06/2023 Are You Passively Exposed To Smoke? No [email or web address] Information not available 08/06/2023 How Much Tobacco Do You Smoke? 0.5 PPD [email or web address] Information not available 08/06/2023 Has Tobacco Cessation Counseling Been Provided? No [email or web address] Information not available 08/06/2023 How Many Years Have You Smoked Tobacco? 40 Information not available 08/06/2023 Sex: Unknown Functional Status Question Answer Note LastModified by Organizat ion Details LastModified Time Do you use any illicit or recreational drugs? No [email or web address] Information not available 08/06/2023 Do you or have you ever used any other forms of tobacco or nicotine? No Information not available 08/06/2023 What is your level of alcohol consumption? Moderate [email or web address] Information not available 08/06/2023 Do you or have you ever used smokeless tobacco? Never used smokeless tobacco [email or web address] Information not available 08/06/2023 What is your exercise level? Occasional [email or web address] Information not available 08/06/2023 Mental Status Question Answer Note LastModified by Organization D etails LastModified Time Do you feel stressed (tense, restless, nervous, or anxious, or unable to sleep at night)? [id number] [email or web address] Information not available 08/06/2023 Family History Relationship Description Onset Age of this Age Resolved Age Notes LastModified by Organization Details LastModified Time Father Carcinoma in situ of urinary bladder primar y [email or web address] Not available 08/06/2023 10:25:15 Father Carcinoma of prostate primar y 19 yrs apart from leora desai [email or web address] Not available 08/06/2023 10:25:38 Medical History Condition Response Hypertension Y High Cholesterol Y Past Encounters Encounter ID Performer Location Encounter Start Date Encounter Closed Date Diagnosis/Indication Diagnosis SNOMED-CT Code Diagnosis ICD10 Code Diagnosis Note [id number] Nikko Perales MD [facility] Oncology and H[facility]olog [facility] [address] [place] [address] 08/06/2023 10:04:38 08/06/2023 11:18:46 Rectal mass [id number] R19.00 Colonoscop y on July 30, 2023 [...] Hemoglobin 14.9 and hematocrit 44.1. Platelet count 183987. Normal renal function testing with GFR greater [...] Patient has appointmen t with Colorectal surgery [facility]. Will follow-up evaluation . Health Concerns Section Related Observation LastModified by Organization Detai ls LastModified Time None Recorded Concern Status LastModified by Organization Details LastModified Time None Recorded Advance Directives Directive Y: Payers Insurance Date Sequence Insurance Name Policy Number Policy Swenson Covered Member ID Swenson Member ID Guarantor Name 08/06/2023 2 [employer] Sal[place]ón Rios Raz [id number] Salomón Rios Raz 08/09/2024 1 [place] Salomón Colladoand [id number] Salomón Rios Raz 08/06/2023 2 [employer] (MEDICARE SUPPLEMENT) Salomón Rios Raz [id number] Salomón Rios Raz 08/09/2024 2 [employer] SUPPLEMENTAL - [employer]URANCE (MEDICARE SUPPLEMENT) Salomón Rios Raz [id number] Salomón Rios Raz 07/28/2023 3 [employer] SUPPLEMENTAL - [employer] (MEDICARE SUPPLEMENT) Salomón Rios Raz [id number] Salomón Colladoand Notes Date Note Type Note Provider Name [...] Hemoglobin 14.9 and hematocrit 44.1. Platelet count 088927. Normal renal function testing with GFR greater [...] genetic testing. Will follow-up Nikko Perales MD [address], [place], [address], [place] - [facility] [place] & [place] 08/06/2023 11:18:01
[2024-08-10 08:46] LABS: Anti-Centromere B Antibodies ND; Anti-DNA (DS) Ab Qn ND; Anti-Jo-1 ND; Antichromatin Antibodies ND; Antiscleroderma-70 Antibodies ND; RNP Antibodies ND; Sjogren's Anti-SS-A ND; Sjogren's Anti-SS-B ND
[2024-08-10 09:28] LABS: Basophils # 0.1 K/mm3 (0-0.2); Basophils % 0.6 % (0.1-2.0); Eosinophils # 0.2 Kmm3 (0.0-0.4); Eosinophils % 2.8 % (0.1-12.0); Hematocrit 42.4 % (42.0-52.0); Hemoglobin 14.4 g/dL (14.1-18.0); Immature Granulocytes # 0.02 10^3uL; Immature Granulocytes % 0.3 %; Lymphocytes # 1.3 K/mm3 (0.7-4.5); Lymphocytes % 16.1 % (10-50); Mean Corpuscular Volume 91.4 fl (80-94); Mean Platelet Volume 9.7 fl (7.4-10.4); Monocytes # 0.8 K/mm3 (0.1-1.0); Monocytes % 9.8 % (1.7-9.3); Neutrophils # 5.5 K/mm3 (1.8-7.8); Neutrophils % 70.4 % (37.0-80.0); Nucleated Red Blood Cells # 0 10^3/uL; Nucleated Red Blood Cells % 0 %; Platelet Count 223 K/mm3 (142-424); Red Blood Count 4.64 M/mm3 (4.60-6.20); Red Cell Distribution Width 12.5 % (11.5-17.5); Red Cell Distribution Width-SD 40.9 fL; White Blood Count 7.9 K/mm3 (4.8-10.8)
[2024-08-10 10:01] LABS: Alanine Aminotransferase 39 U/L (12-78); Albumin Level 5.2 g/dl (3.5-5.0); Albumin/Globulin Ratio 2.2 (1.1-1.8); Alkaline Phosphatase 104 U/L (38-126); Anion Gap 10.8 mEq/L (5-15); Aspartate Amino Transferase 27 U/L (17-59); Bilirubin,Total 0.7 mg/dl (0.2-1.3); Blood Urea Nitrogen 20 mg/dl (9-20); Carbon Dioxide 28 mmol/L (22.0-30.0); Chloride 105 mmol/L (98-107); Estimated Glomerular Filt Rate 75 ml/min (>60); GFR (African American) 90 ML/MIN (>60); Globulin 2.4 g/dL (1.3-3.2); Glucose 160 mg/dl (74-100); Potassium 4.8 mmoL/L (3.5-5.1); Sodium 139 mmol/L (136-145); Total Protein,Serum 7.6 g/dl (6.3-8.2)
[2024-08-10 10:17] LABS: Free T4 (Free Thyroxine) 1.23 ng/dl (0.78-2.19)
[2024-08-10 10:30] LABS: Thyroid Stimulating Hormone 3.21 uIU/mL (0.465-4.68)
[2024-08-11 12:11] LABS: Antinuclear Antibodies (ANA) Negative (Negative)
[2024-08-11 13:11] LABS: Thyroid Peroxidase Antibodies 10 IU/mL (0-34)
[2024-08-11 15:13] LABS: Thyroglobulin Level <1.0 IU/mL (0.0-0.9)
[2024-08-14 09:11] LABS: D001-IgE D pteronyssinus <0.10 kU/L (Class 0); D002-IgE D farinae <0.10 kU/L (Class 0); E001-IgE Cat Dander <0.10 kU/L (Class 0); E005-IgE Dog Dander <0.10 kU/L (Class 0); E072-IgE Mouse Urine <0.10 kU/L (Class 0); F026-IgE Pork < 0.10 kU/L (Class 0); F027-IgE Beef < 0.10 kU/L (Class 0); F088-IgE Lamb < 0.10 kU/L (Class 0); G002-IgE Bermuda Grass <0.10 kU/L (Class 0); G006-IgE Timothy Grass <0.10 kU/L (Class 0); I006-IgE Cockroach, German <0.10 kU/L (Class 0); Immunoglobulin E, Total 19 IU/mL (6-495); M001-IgE Penicillium chrysogen <0.10 kU/L (Class 0); M002-IgE Cladosporium herbarum <0.10 kU/L (Class 0); M003-IgE Aspergillus fumigatus <0.10 kU/L (Class 0); M006-IgE Alternaria alternata <0.10 kU/L (Class 0); O215-IgE Alpha-Gal < 0.10 kU/L (Class 0); T001-IgE Maple/Box Elder <0.10 kU/L (Class 0); T003-IgE Common Silver Birch <0.10 kU/L (Class 0); T006-IgE Cedar, Mountain <0.10 kU/L (Class 0); T007-IgE Oak, White <0.10 kU/L (Class 0); T008-IgE Elm, American <0.10 kU/L (Class 0); T010-IgE Walnut <0.10 kU/L (Class 0); T011-IgE Maple Leaf Sycamore <0.10 kU/L (Class 0); T014-IgE Cottonwood <0.10 kU/L (Class 0); T015-IgE Ash, White <0.10 kU/L (Class 0); T022-IgE Pecan, Hickory <0.10 kU/L (Class 0); T070-IgE White Mulberry <0.10 kU/L (Class 0); W001-IgE Ragweed, Short <0.10 kU/L (Class 0); W011-IgE Thistle, Russian <0.10 kU/L (Class 0); W014-IgE Pigweed, Common <0.10 kU/L (Class 0); W018-IgE Sheep Sorrel <0.10 kU/L (Class 0)
[2024-08-24 15:23] LABS: Immunoglobulin E, Total 19
[2024-08-28 12:18] LABS: Immunoglobulin E, Total 19 IU/mL (6-495)
== END 2024-08-10 23:59 | disposition home or self-care (01) ==
LOC: LAB 08:38
PROVIDERS: PCP Nurse Practitioner Family; Visit Provider Nurse Practitioner
DX: J30.89 Other allergic rhinitis (principal); L29.89 Other pruritus; L50.1 Idiopathic urticaria
CPT/HCPCS: 36415; 80053; 82785; 83520; 84439; 84443; 85025; 86003; 86008; 86038; 86376; 86800

== ENCOUNTER 2024-09-05 09:46 | Inpatient (IN) | payer MEDICARE, OTHER, SELFPAY ==
--- OUTSIDE RECORDS SUMMARY | 2024-08-16 01:20 | XMS_ITS | Continuity of Care Document ---
Author Organization [facility] Phone Care Team Providers Care Stain Applicator Name Role Phone VASILE WILLS Admitting ROMA LEO Primary Care VASILE WILLS Primary Attending VASILE WILLS Unavailable ALLERGIES AND ADVERSE REACTIONS ALLERGIES AND ADVERSE REACTIONS Code System Allergy Substance Adverse Reaction Date Reaction (Severity) Comment Status Reported By Updated By No Known Allergies [email or web address] on August 12, 2024 1:40:59 PM [facility] FAMILY HISTORY RELATION: Father Status: LIVING SNOMED-CT Diagnosis Age At Onset [id number] Cardiac pacemaker in situ RELATION: Mother Status: LIVING SNOMED-CT Diagnosis Age At Onset [id number] Hypertensive disorder RESULTS Patient: JIMMY RODRIGUEZ Date of : 1955 5 LABORATORY RESULTS Information is not available LABORATORY NARRATIVE RESULTS Information is not available RADIOLOGY RESULTS ORDER 100: CT CHEST W (LOINC : 27631-4) ORDER DATE: August 12, 2024 3:31:00 PM [facility] PERFORMING LAB: [address] [id number] Final Result Date: August 12 6:06:[address] [address] Name: MICHAEL MARQUEZ Exam Date: 08/12/2024 : 1955 Age 69 years Gender: M Physician: VASILE WILLS Facility: [facility] Facility HSV: Outpatient Exam: CT CHEST W EXAM: CT CHEST W CLINICAL INDICATION: Male, 69 years old. cancer of sigmoid colon COMPARISON: July 30, 2023 TECHNIQUE: Contiguous thin slice axial noncontrast CT images of the chest were obtained along with 2-D multiplanar reformatted images in the sagittal and coronal planes. DOSE LENGTH PRODUCT: 1041.44 mGy*cm DOSE OPTIMIZATION: This CT scan was performed with one or more of the following dose optimization techniques: iterative reconstruction, automatic exposure control, and/or manual adjustment of mAs and kVp according to the patient's size. This CT exam has been performed using low dose protocols to limit radiation exposure to as low as reasonably achievable. This center is recognized and certified by the [employer], a designation awarded to centers who have demonstrated faculty competency, clinical image excellence and radiation safety compliance requirements. FINDINGS: The thyroid gland is unremarkable. The heart size is normal. There is no pericardial effusion. Post CABG. The aorta and pulmonary arteries appear unremarkable. No axillary adenopathy. Large calcified mass lesion in the mediastinum superior and anterior to the right pulmonary artery, unchanged. The hilar and mediastinal structures are otherwise appear unremarkable. No concerning hilar or mediastinal adenopathy seen. The lungs are normally inflated and clear. No lung infiltrates, mass, pleural effusions, vascular congestion or pneumothorax are present. There is a 3 mm subpleural nodule in the right upper lobe, image 30\71 CT #6 The bones and soft tissues appear unremarkable. Abdomen and pelvis evaluated on separate study. IMPRESSION: Nonspecific 3 mm subpleural nodule right upper lobe. Follow-up as indicated for colon cancer surveillance This dictation was performed using voice recognition software and some phonetic and grammatical errors may be missed in proofreading. Electronically signed by: Indira Andino MD 08/12/2024 02:06 PM EDT RP Legally authenticated by TJ Woody 2024-08-12 14:06:27 Dictated By: Indira Andino Transcribed By: Transcribed On: 08/12/2024 2:06 PM Electronically signed by: Indira Andino 08/12/2024 Thank you for referring JIMMY MICHAEL to [facility]. Legally authenticated by TJ Woody 2024-08-12 14:06:27 ORDER 200: CT ABD PEL W IV C ONT ONLY (LOINC: 53557-3) ORDER DATE: August 12, 2024 3:31:00 PM [facility] PERFORMING LAB: [facility] [address] [facility] [id number] Final Result Date: August 12 6:35:19 PM [facility] [address] [place] [address] Name: MICHAEL MARQUEZ Exam Date: 08/12/2024 : 1955 Age 69 years Gender: M Physician: VASILE WILLS Facility: [facility] Facility HSV: Outpatient Exam: CT ABD PEL W (IV CONT ONLY) EXAM: CT ABDOMEN PELVIS WITH IV CONTRAST INDICATION: 69 years old Male cancer of sigoid colon COMPARISON: July 30, 2023 TECHNIQUE: Contiguous thin slice axial contrast-enhanced CT images of the abdomen and pelvis were obtained along with 2-D multiplanar reformatted images in the sagittal and coronal planes. CONTRAST: mL of intravenous contrast were used. DOSE LENGTH PRODUCT: 1041.44 mGy*cm DOSE OPTIMIZATION: This CT scan was performed with one or more of the following dose optimization techniques: iterative reconstruction, automatic exposure control, and/or manual adjustment of mAs and kVp according to the patient's size. This CT exam has been performed using low dose protocols to limit radiation exposure to as low as reasonably achievable. This center is recognized and certified by the [employer], a designation awarded to centers who have demonstrated faculty competency, clinical image excellence and radiation safety compliance requirements. FINDINGS: CT Abdomen: The lung bases are unremarkable. Normal heart size without pericardial effusion. The liver is normal alignment generalized low attenuation consistent with fatty infiltration. The gallbladder, pancreas, spleen and adrenal glands are unremarkable. There are punctate calcifications in the spleen. The kidneys and ureters are unremarkable. The stomach and small bowel appear unremarkable. There is no bowel wall thickening or obstruction. There is prominent haustra pattern in the colon at the junction between the ascending and transverse and transverse colon. The appendix is unremarkable. No mesenteric or retroperitoneal adenopathy seen. The mesentery/mesenteric fat is unremarkable. No abnormal masses, free air/fluid or fluid collections noted in the abdomen. The aorta and iliofemoral arteries are unremarkable. Unremarkable IVC and mesenteric vessels. The bones and soft tissues are unremarkable. CT Pelvis: Legally authenticated by TJ Woody 2024-08-12 14:35:19 The urinary bladder is unremarkable. Bilateral fat filled inguinal hernias. Presumed postoperative change in the rectosigmoid colon with localized irregular wall thickening and narrowing. No abnormal pelvic masses, free fluid or fluid collections are noted. The pelvic bones and soft tissues are unremarkable. IMPRESSION: Nonspecific findings in the proximal to mid colon likely insignificant. Consider correlation with direct visualization, colonoscopy. Presumed postoperative change in the rectosigmoid colon Fatty liver This dictation was performed using voice recognition software and some phonetic and grammatical errors may be missed in proofreading. Electronically signed by: Indira Andino MD 08/12/2024 02:35 PM EDT Dictated By: Indira Andino Transcribed By: Transcribed On: 08/12/2024 2:35 PM Electronically signed by: Indira Andino 08/12/2024 Thank you for referring JIMMY MICHAEL to [facility]. Legally authenticated by TJ Woody 2024-08-12 14:35:19 PATHOLOGY NARRATIVE RESULTS Information is not available MICROBIOLOGY RESULTS No Micro Labs/Results Exist for Patient BLOOD ADMIN RESULTS Information is not available MEDICATIONS HOME MEDICATIONS Status RXNORM NDC Medication Dose Route Frequency Dates Comments Reported By Updated By Drug Treatment Unknown DISCHARGE MEDICATIONS Status RXNORM NDC Medication Dose Route Frequency Dates Comments Physician Updated By No Discharge Medication Info rmation Available INPATIENT MEDICATIONS Status RXNORM NDC Medication Dose Route Frequency Rat e Quantity Dates Comments Physician Updated By No Inpatient Medication Info rmation Available SOCIAL HISTORY SOCIAL HISTORY SNOMED-CT Social History Element Description Effective Dates Offered Cessation Comment UpdatedBy [id number] Historical Tobacco smoking status Former Smoker [id number] on August 10, 2024 6:02:51 PM [facility] [id number] Historical Tobacco smoking status Current Every Day Smoker Yes 1/2 ppd [id number] on July 30, 2023 12:38:41 PM [facility] SOCIAL HISTORY - Gender Sex: Male SOCIAL HISTORY - Status : status i nformation is not available Intention in Next Year: intention information is not available SOCIAL HISTORY - Sexual Behavior Sexual Orientation Gender Identity SNOMED-CT Description SNO MED -CT Description Activity Level No of Partners Partner Type UpdatedBy Information is not available HEALTH CONCERNS Problems Concern Status Health Concern problem infor mation not available. Smoking Status Status Years Used Consumed packs p er day Health Concern smoking histo ry information not available. Family History Concern Status Health Concern family histor y information not available. ENCOUNTERS ENCOUNTER INFORMATION Reason for Visit CT CHEST ABD/PELVIS W/ Admission August 12, 2024 1:20:[address] [address] Discharge August 12, 2024 1:20:00 PM [facility] DISC HARGED TO HOME OR SELF CARE ENCOUNTER DIAGNOSES Notes information is not dayna ilable. Code System Diagnosis Onset Date Diagnosis information is not available. ABSTRACT DIAGNOSES Code System Diagnosis Updated By C18.7 ICD10 MALIGNANT NEOPLASM OF SIGMOI D COLON [id number] on July 07, 2024 12:50:35 PM UT C18.7 ICD10 MALIGNANT NEOPLASM OF SIGMOI D COLON [id number] on August 16, 2024 5:19:26 AM UT K76.0 ICD10 FATTY (CHANGE OF ) LIVER, NOT ELSEWHERE CLASSIFIED [id number] on August 16, 2024 5:19:30 AM [place] Z98.890 ICD10 OTHER SPECIFIED POSTPROCEDUR AL STATES [id number] on August 16, 2024 5:19:32 AM [facility] CARE TEAM Care Stain Applicator Role VASILE WILLS Admitting ROMA LEO Primary Care VASILE WILLS Primary Attending VASILE WILLS Referring CARE TEAM CARE supervisor riprap placing Role on Team Status Start Date End Date Update d By FELIPA BRANDON PCP normal July 07, 2024 12:50:36 PM UT August 12, 2024 1:20:00 PM [place] [id number] on July 07, 2024 12:50:36 PM UT JOHANN CLARK Referring normal July 07, 2024 12:50:36 PM UT August 12, 2024 1:20:00 PM [place] [id number] on July 07, 2024 12:50:36 PM [facility] JOHANN CLARK Attending normal July 07, 2024 12:50:36 PM UT August 12, 2024 1:20:00 PM [place] [id number] on July 07, 2024 12:50:36 PM [facility] JOHANN CLARK Admitting normal July 07, 2024 12:50:36 PM [facility] August 12, 2024 1:20:00 PM [facility] [id number] on July 07, 2024 12:50:36 PM [facility]
--- OUTSIDE RECORDS SUMMARY | 2024-08-16 08:45 | XMS_ITS | Continuity of Care Document ---
Author Organization [facility] Phone Care Team Providers Care Single Stroke Preformer Name Role Phone CASE, CHEY Del Rio Primary Attending ROMA LEO Primary Care CASE, CHEY Del Rio Surgeon CASE, CHEY W Admitting ALLERGIES AND ADVERSE REACTIONS ALLERGIES AND ADVERSE REACTIONS Code System Allergy Substance Adverse Reaction Date Reaction (Severity) Comment Status Reported By Updated By No Known Allergies [id number] on August 12, 2024 1:40:59 PM [facility] FAMILY HISTORY RELATION: Father Status: LIVING SNOMED-CT Diagnosis Age At Onset [id number] Cardiac pacemaker in situ RELATION: Mother Status: LIVING SNOMED-CT Diagnosis Age At Onset [id number] Hypertensive disorder MEDICATIONS HOME MEDICATIONS Status [facility] Medication Dose Route Frequency Dates Comments Reported By Updated By Active [id number] 53999 Atorvastatin Calcium Oral Tablet 40 MG 40.0 MG ORAL DAILY Last Dose: August 11, 2024 12:00: 00 PM [facility] [id number] on August 12, 2024 1:43:29 PM [facility] Active 063191 89459 baby aspirin (JOHNATHON) 81.0 MG ORAL DAILY Last Dose: August 11, 2024 12:00: 00 PM [facility] [id number] on August 12, 2024 1:43:41 PM [facility] Active 318835 43220 Coenzyme Q-10 Oral Capsule 200 MG 200.0 MG ORAL DAILY Last Dose: August 11, 2024 12:00: 00 PM [facility] [id number] on August 12, 2024 1:43:56 PM [facility] Active 307345 23953 Fish Oil Oral Capsule 1000 MG 1.0 CAP ORAL DAILY Last Dose: August 11, 2024 12:00: 00 PM [facility] PATIENT [id number] on August 12, 2024 1:44:12 PM [facility] Active 111024 866045 83378 metoprolol succin (TOPROL XL) 50.0 MG ORAL DAILY Last Dose: August 11, 2024 12:00: 00 PM [facility] [id number] on August 12, 2024 1:44:31 PM [facility] Active 560418 14427 Multivitamin Adult Oral Tablet 1.0 TAB ORAL DAILY Last Dose: August 11, 2024 12:00: 00 PM [facility] [id number] on August 12, 2024 1:45:00 PM [facility] Active 447395 57120 Osteo Bi-Flex Adv Triple St Oral Tablet 1.0 TAB ORAL DAILY Last Dose: August 11, 2024 12:00: 00 PM [facility] [id number] on August 12, 2024 1:45:16 PM [facility] Active 726050 12806 Vitamin D (Cholecalcif gerardo) Oral Tablet 25 MCG (1000 UT) 1.0 TAB ORAL DAILY Last Dose: August 11, 2024 12:00: 00 PM [facility] [id number] on August 12, 2024 1:45:33 PM [facility] Active 023762 157626 Losartan Potassium Oral Tablet 50 MG 1.0 TAB ORAL DAILY Last Dose: August 11, 2024 12:00: 00 PM [facility] PATIENT [id number] on August 12, 2024 1:44:23 PM [facility] Active 892554 679698 73530 amLODIPine Besylate Oral Tablet 10 MG 1.0 TAB ORAL DAILY Last Dose: August 11, 2024 12:00: 00 PM [facility] PATIENT [id number] on August 12, 2024 1:43:13 PM [facility] DISCHARGE MEDICATIONS Status [facility] Medication Dose Route Frequency Dates Comments Physician Updated By No Discharge Medication Info rmation Available INPATIENT MEDICATIONS Status [facility] Medication Dose Route Frequency Rat e Quantity Dates Comments Physician Updated By Ambar indarrell [id number] [phone] LACTATED RINGERS SOLN 1000. 0 ML INTRAV ENOUS ONE TIME ADMINISTRA TION (UNSCHEDUL ED) 25.0 ML/HR Start: August 11, 2024 6:40:0 0 PM [facility] End: August 12, 2024 9:14:0 0 PM [facility] KRYSTAL Jean [id number] on August 13, 2024 4:25:00 AM [facility] Ambar indarrell [id number] 7164 8004 904 sodium chloride 0.9% SOLN 1000. 0 ML INTRAV ENOUS ONE TIME ADMINISTRA TION (UNSCHEDUL ED) 25.0 ML/HR Start: August 11, 2024 6:40:0 0 PM UTC End: August 12, 2024 9:14:0 0 PM UTC KRYSTAL Jean [id number] on August 13, 2024 4:25:00 AM [place] Discont inued [id number] 2468 5034 542 PROPOFOL 500 MG/50ML EMUL 500.0 MG INTRAV ENOUS ONE TIME ONLY (SCHEDULED DOSE) 20.833 MG/HR Start: August 12, 2024 1:43:0 0 PM UTC End: August 12, 2024 9:14:0 0 PM UTC BLAYNE Del Rio [id number] on August 13, 2024 1:44:00 PM [place] SOCIAL HISTORY SOCIAL HISTORY SNOMED-CT Social History Element Description Effective Dates Offered Cessation Comment UpdatedBy [id number] Current Tobacco smoking status Former Smoker [id number] on August 10, 2024 6:02:51 PM UT [id number] Historical Tobacco smoking status Current Every Day Smoker Yes 1/2 ppd [id number] on July 30, 2023 12:38:41 PM [place] SOCIAL HISTORY - Gender Sex: Male SOCIAL HISTORY - Status : status i nformation is not available Intention in Next Year: intention information is not available SOCIAL HISTORY - Sexual Behavior Sexual Orientation Gender Identity SNOMED-CT Description SNO MED -CT Description Activity Level No of Partners Partner Type UpdatedBy Information is not available VITAL SIGNS PATIENT VITAL SIGNS This section displays the mo st recent value for each vital sign as of August 16, 2024 12:45:42 PM [facility] Loinc Code Vital Sign Activity Date Result Updated By 8302-2 Body height August 12, 2024 1:42:08 PM UT 175.26 cm (69.0 in) [id number] on August 12, 2024 1:42:08 PM [facility] 55551-4 Body mass index (BMI) [Ratio] August 12, 2024 1:42:08 PM UTC 28.94 kg/m2 [id number] on August 12, 2024 1:42:08 PM [facility] 3140-1 Body Surface Area Derived From Formula August 12, 2024 1:42:08 PM UT 2.048 m2 [id number] on August 12, 2024 1:42:08 PM [facility] 66330-4 Body weight Measured August 12 1:42:08 PM [facility] 88.9 kg (196.0 lb) [id number] on August 12, 2024 1:42:08 PM [facility] PEDIATRIC GROWTH CHART - VITAL SIGNS This section displays Head C ircumference Percentile, Weight for Length Percentile and BMI Percentile Loinc Code Pediatric Measure Age (Months) Result Updat ed By No Pediatric Growth Chart Pe rcentile Information Available. PROCEDURES PATIENT PROCEDURES CODE SYSTEM DESCRIPTION STATUS PERFORMED DATE UPD ATED BY [id number] SNOMED-CT Colonoscopy completed August 12, 2024 4:00:00 AM [facility] [id number] on August 12, 2024 2:44:24 PM [facility] PROCEDURE NOTE Procedure Note information i s not available. HEALTH CONCERNS Problems Concern Status Health Concern problem infor mation not available. Smoking Status Status Years Used Consumed packs p er day Health Concern smoking histo ry information not available. Family History Concern Status Health Concern family histor y information not available. ENCOUNTERS ENCOUNTER INFORMATION Reason for Visit DX COLON Admission August 12, 2024 1:14:[address] [address] Discharge August 12, 2024 9:14:00 PM [facility] DISC HARGED TO HOME OR SELF CARE ENCOUNTER DIAGNOSES Notes information is not dayna ilable. Code System Diagnosis Onset Date Diagnosis information is not available. 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 VAB1113 on August 16, 2024 12:45:01 PM [facility] I25.10 ICD10 ATHEROSCLEROTIC HEART DISEASE OF [place] CORONARY ARTERY WITHOUT ANGINA PECTORIS [id number] on August 16, 2024 12:45:01 PM [facility] 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 JST8414 on August 16, 2024 12:45:01 PM [facility] Z79.82 ICD10 CORRECTION (CURRENT) USE OF A SPIRIN [id number] on August 16, 2024 12:45:01 PM [facility] E78.5 ICD10 HYPERLIPIDEMIA, UNSPECIFIED [id number] on August 16, 2024 12:45:01 PM [facility] E66.01 ICD10 MORBID (SEVERE) OBESITY DUE TO EXCESS CALORIES SMM1690 on August 16, 2024 12:45:01 PM [facility] Z68.31 ICD10 BODY MASS INDEX [BMI] 31.0-3 1.9, ADULT [id number] on August 16, 2024 12:45:01 PM [facility] E11.9 ICD10 TYPE 2 DIABETES MELLITUS WITHOUT COMPLICATIONS SDR3976 on August 16, 2024 12:45:01 PM [facility] Z79.899 ICD10 OTHER TRANSIT OPERATIONS SUPERVISOR (CURRENT) DR WILLIAN THERAPY CCE7374 on August 16, 2024 12:45:01 PM [facility] CARE TEAM Care Single Stroke Preformer Role CHEY CISNEROS Primary Attending ROMA LEO Primary Care CHEY CISNEROS Surgeon CHEY CISNEROS Admitting CARE TEAM CARE account service representative Role on Team Status Start Date End Date Update d By CASE CHEY REINA Surgeon normal August 12 1:14:00 PM [facility] August 12, 2024 9:14:00 PM [facility] [id number] on August 16, 2024 12:45:09 PM [facility] FELIPA BRANDON PCP normal August 02, 2024 6:14:21 PM [facility] August 12, 2024 9:14:00 PM [facility] [id number] on August 16, 2024 12:45:09 PM [facility] CASE CHEY REINA Attending normal August 02 6:14:21 PM [facility] August 12, 2024 9:14:00 PM [facility] [id number] on August 16, 2024 12:45:09 PM [facility] CASE CHEY REINA Admitting normal August 02 6:14:21 PM [facility] August 12, 2024 9:14:00 PM [facility] [id number] on August 16, 2024 12:45:09 PM [facility]
[2024-09-05] VITALS (17 sets, daily range): BP systolic 123–169; BP diastolic 71–95; PULSE 80–102; RESP 17–29; TEMP 36.6–37.4; O2SAT 95–98; BMI 30.2; BMI 29.7
--- NOTE | 2024-09-05 09:57 | ECG_ITS ---
APPROVED REPORT Exam: Resting ECG HR:102 bpm ECG Measurements Heart Rate 102 AXES QRSd 95 QRS 42 QT 331 T 185 QTc 390 Conclusion ATRIAL FLUTTER/TACHYCARDIA WITH RAPID VENTRICULAR RESPONSE No STEMI Electronically signed by : ALEX CHRISTOPHER, 09/05/2024 15:30:26
--- NOTE | 2024-09-05 09:59 | PC.NURSE ---
EKG done on patient at this time.
--- OUTSIDE RECORDS SUMMARY | 2024-09-05 10:16 | XMS_ITS ---
Laboratory report Created on: August 17, 2024 MICHAEL MARQUEZ : 1955 Sex: Male Author Organization Unknown PROBLEMS Problems List Code Description RESULTS Laboratory Orders Date Order Code Test 2024-08-10 214461 ANTINUCLEAR AB M ULTIPLEX RFX 9 2024-08-10 618679 ALPHA-GAL IGE PA MERLYN 2024-08-10 168212 ALLERGENS W/TOTA L IGE AREA 5 2024-08-10 108669 THYROGLOBULIN AN TIBODY 2024-08-10 519178 THYROID PEROXIDA SE (TPO) AB Laboratory Results Date LOINC Test Value Unit Reference Range Interpre tation 2024-08-10 8061-4 TONY DIRECT N NEGATIVE 2024-08-10 48889-8 IMMUNOGLOBULIN E, TOTAL 19 IU/ML 6-495 2024-08-10 6219-0 G797-WBN PORK <0.10 KU/L 2024-08-10 6039-2 Q091-RTL BEEF <0.10 KU/L 2024-08-10 6155-6 Q294-VCS JJ <0.10 KU/L 2024-08-10 42996-4 Q823-ILA ALPHA-GAL <0.10 KU/L 2024-08-10 6096-2 E110-ATV D PTERONYSSINUS <0.10 KU/L 2024-08-10 6095-4 R099-FKZ D FARINAE <0.10 KU/L 2024-08-10 6833-8 N175-UVW CAT DANDER <0.10 KU/L 2024-08-10 6098-8 U034-CVC DOG DANDER <0.10 KU/L 2024-08-10 6181-2 D119-EIB MOUSE URINE <0.10 KU/L 2024-08-10 6041-8 O152-BUO BERMUDA GRASS <0.10 KU/L 2024-08-10 6265-3 Z483-QGP MICHAEL GRASS <0.10 KU/L 2024-08-10 6078-0 X446-FSW COCKROA CH, TAMAZIGHT <0.10 KU/L 2024-08-10 6212-5 O206-RPZ PENICIL LIUM CHRYSOGEN <0.10 KU/L 2024-08-10 6075-6 G376-QBD CLADOSP ORIUM HERBARUM <0.10 KU/L 2024-08-10 6025-1 A030-ACI ASPERGI LLUS FUMIGATUS <0.10 KU/L 2024-08-10 6020-2 H173-AEQ ALTERNA ISREAL ALTERNATA <0.10 KU/L 2024-08-10 7155-5 L361-IDY MAPLE/B OX ELDER <0.10 KU/L 2024-08-10 60774-7 Z735-JLI COMMON SILVER BIRCH <0.10 KU/L 2024-08-10 6178-8 U278-VFI CEDAR, MOUNTAIN <0.10 KU/L 2024-08-10 6189-5 S544-UWU OAK, WHITE <0.10 KU/L 2024-08-10 6109-3 Y140-PUD ELM, BENINESE <0.10 KU/L 2024-08-10 77968-4 R699-RVE WALNUT <0.10 KU/L 2024-08-10 83395-0 O078-NVK MAPLE L EAF SYCAMORE <0.10 KU/L 2024-08-10 6090-5 S547-YFX [place] <0.10 KU/L 2024-08-10 6278-6 Z655-SEE JAYANT, WHITE <0.10 KU/L 2024-08-10 6209-1 A219-GHI PECAN, HICKORY <0.10 KU/L 2024-08-10 6281-0 U691-SLV WHITE MULBERRY <0.10 KU/L 2024-08-10 6085-5 M542-ODM RAGWEED, SHORT <0.10 KU/L 2024-08-10 6234-9 J151-ROU THISTLE , SYRIAN <0.10 KU/L 2024-08-10 7604-2 Z965-UMD PIGWEED , COMMON <0.10 KU/L 2024-08-10 6244-8 E683-FFW SHEEP SORREL <0.10 KU/L 2024-08-10 8098-6 THYROGLOBULIN ANTIBODY LTTA IU/ML 0.0-0. 9 2024-08-10 8099-4 THYROID PEROXIDA SE (TPO) AB 10 IU/ML 0-34
--- OUTSIDE RECORDS SUMMARY | 2024-09-05 10:16 | XMS_ITS | Encounter Summary ---
Author Organization [facility] Address [address] [place] [address] Care Team Providers Care Education Instructor Name Role Phone BenjaminPilar INSIDE PHONE SALES Primary Care Provider [phone] Mary Grace Camp MD Unavailable [phone] Encounter Details Date Type Department Care Team (Late st Contact Info) Description 08/27/2019 Transcribed Document [facility] Cardiology [address] [place] [address] [address] [place] [address] Mary Grace Camp MD [address] [facility] [address] [place] [address] Social History Tobacco Use Types Packs/Day Years Used Date Smoking Tobacco: Never Assessed Sex and Gender Information Value Date Recorded Sex Assigned at Not on file Legal Sex Male 1:41 PM CDT Gender Identity Not on file Sexual Orientation Not on file documented as of this encounter Miscellaneous Notes * Cerner Conversion Note - Mary Grace Camp MD - 08/27/2019 11:42 AM EDT DATE OF SERVICE: This patient underwent a stress test. The EKG portion of which was unremarkable. NUCLEAR SCAN: There appears to be a within normal myocardial perfusion. Normal wall motion wall thickening appreciated. Ejection fraction 61%. IMPRESSION: 1. Normal study. 2. Ejection fraction 61%. /[id number] Mary Grace Camp MD NMF/AQ / NMF / MODL /[id number] documented in this encounter Plan of Treatment Not on file documented as of this encounter Visit Diagnoses Not on filedocumented in this encounter Care Teams Education Instructor Relationship Specialty Start Date End Date Pilar Alexander, INSIDE PHONE SALES [address] [phone] PCP - General Nurse Practitioner 08/01/23 Mary Grace Camp MD [address] [facility] [place] [address] Interventional Cardiology 08/01/23 documented as of this encounter
--- OUTSIDE RECORDS SUMMARY | 2024-09-05 10:16 | XMS_ITS | Encounter Summary ---
Author Organization [facility] Address [address] [place] [address] Care Team Providers Care Architecture Drafter Name Role Phone Benjamin Pilar YING Primary Care Provider Mary Grace Camp MD Unavailable [phone] Encounter Details Date Type Department Care Team (Late st Contact Info) Description 07/22/2018 Transcribed Document [facility] Cardiology [address] [facility] [address] [place] [address] Mary Grace Camp MD [address] [facility] [address] [place] [address] Social History Tobacco Use Types Packs/Day Years Used Date Smoking Tobacco: Never Assessed Sex and Gender Information Value Date Recorded Sex Assigned at Not on file Legal Sex Male 1:41 PM CDT Gender Identity Not on file Sexual Orientation Not on file documented as of this encounter Miscellaneous Notes * Cerner Conversion Note - Mary Grace Camp MD - 07/22/2018 11:52 AM EDT DATE OF STUDY: EXERCISE STRESS TEST WITH MYOCARDIAL PERFUSION STUDY PROCEDURE: Patient exercised according to the usual Erasto protocol for 8 minute achieving a maximum workload of 10 METs with a proper hemodynamic response and with the achievement of 96% of his maximal age predicted heart rate with no EKG changes suggestive of ischemia, no ventricular dysrhythmia, no chest pain. The stress test was terminated secondary to development of fatigue. NUCLEAR SCAN: There appears to be a within normal myocardial perfusion, normal wall motion, wall thickening appreciated with ejection fraction of 65%. IMPRESSION: 1. Normal study. 2. Excellent functional capacity. 3. Ejection fraction of 65%. Mary Grace Camp M.D. Dict: 07/22/2018 10:52:27 Trans: 07/22/2018 11:46:33 CC1: Mary Grace Camp M.D. documented in this encounter Plan of Treatment Not on file documented as of this encounter Visit Diagnoses Not on filedocumented in this encounter Care Teams Architecture Drafter Relationship Specialty Start Date End Date AlexanderLesleye, YING [address] [address] PCP - General Nurse Practitioner 08/01/23 Mary Grace Camp MD [address] [facility] [place] [address] Interventional Cardiology 08/01/23 documented as of this encounter
--- OUTSIDE RECORDS SUMMARY | 2024-09-05 10:16 | XMS_ITS | Encounter Summary ---
Author Organization Healthcare Address [address] [place] [address] Care Team Providers Care Certified Scrub Tech Name Role Phone Pilar Alexander APRN Primary Care Provider [phone] Encounter Details Date Type Department Care Team (Late st Contact Info) Description 08/08/2023 Lab Requisition [facility] [address] [place] [address] Yair Akhtar MD [address] [facility] [address] [place] [address] Melena Social History Tobacco Use Types Packs/Day Years Used Date Smoking Tobacco: Never Assessed Sex and Gender Information Value Date Recorded Sex Assigned at Male 08/12/2023 7:52 AM EDT Legal Sex Male 8:40 AM EDT Gender Identity Male 08/12/2023 7:52 AM EDT Sexual Orientation Not on file documented as of this encounter Plan of Treatment Not on file documented as of this encounter Procedures Procedure Name Priority Date/Time Associated Diagnosis Comments SURGICAL PATHOLOGY CONSULT Routine 08/08/2023 1:08 PM EDT Melena documented in this encounter Results * Surgical Pathology Consult (08/08/2023 1:08 PM EDT) Case Report Sugical Pathology Consult Case: [id number] Authorizing Provider: Yair Akhtar MD Collected: 08/08/2023 1308 Ordering Location: [facility] Received: 08/08/2023 1308 Pathologist: Ora Alegria MD Specimen: Colon, [id number] 10:24 AM EDT [facility] Final Diagnosis LARGE INTESTINE, MASS AT 20 CM, BIOPSY (OUTSIDE CASE [id number]; COLLECTED ON 07/30/2023): - MOST CONSISTENT WITH ADENOCARCINOMA (SEE COMMENT). 10:24 AM EDT [facility] at 1024 EDT Comment Radiology study at outside hospital showed a 2.7 x 2.6 cm mass in the sigmoid colon (at 20 cm area). Therefore, the overall findings are most consistent with adenocarcinoma and segmental sigmoid colon resection is recommended 10:24 AM EDT [facility] Clinical Information K92.1 - Melena [ICD-10-CM] 10:24 AM EDT [facility] Gross Description A. [id number] Received along with a corresponding pathology report from [facility] is 1 slide labeled outside case: [id number] collected on 07/30/2023. 10:24 AM EDT [facility] Intradepartmental Consultation with Agreement Dr. Sloan has seen the case and concurs with the diagnosis. 10:24 AM EDT [facility] Note: A resident was involved in the service. I attest I examined the relevant preparations for the specimens and confirmed the diagnosis or interpretation. 10:24 AM EDT [facility] Tissue Colon structure / Unknown 08/08/2023 1:08 PM EDT 08/08/2023 1:08 PM EDT us Yair Akhtar MD LAB PATHOLOGY ORDERABLES Final Result [facility] [address] [place] [address] documented in this encounter Visit Diagnoses Diagnosis Melena Blood in stool documented in this encounter Care Teams Certified Scrub Tech Relationship Specialty Start Date End Date Pilar Alexander APRN [address] [place] [address] PCP - General 03/31/23 documented as of this encounter
--- OUTSIDE RECORDS SUMMARY | 2024-09-05 10:16 | XMS_ITS ---
Laboratory report Created on: August 17, 2024 MICHAEL MARQUEZ : 1955 Sex: Male Author Organization Unknown PROBLEMS Problems List Code Description RESULTS Laboratory Orders Date Order Code Test 2024-08-10 [id number] [facility] Laboratory Results Date LOINC Test Value Unit Reference Range Interpre tation 2024-08-10 12139-0 TRYPTASE 4.9 UG/L 2.2-13.2
--- OUTSIDE RECORDS SUMMARY | 2024-09-05 10:16 | XMS_ITS | Clinical Summary ---
Author Organization Healthcare Address [address] [place] [address] Care Team Providers Care Physician Allergist Immunologist Name Role Phone Pilar Alexander YING Primary Care Provider [phone] Allergies No known active allergies Medications atorvastatin (Lipitor) 40 MG tablet Take 1 tablet (40 mg) by mouth 1 (one) time each day. 2 Active lisinopril 20 MG tablet Take 1 tablet (20 mg) by mouth 1 (one) time each day. 4 Active metoprolol succinate XL (Toprol-XL) 50 MG 24 hr tablet Take 1 tablet (50 mg) by mouth 1 (one) time each day. 4 Active metFORMIN XR (Glucophage-XR) 500 MG 24 hr tablet Take 1 tablet (500 mg) by mouth 1 (one) time each day. 4 Active Nutritional Supplements (Impact Advanced Recovery) liquid Drink 2 cartons a day starting 5 days before surgery. SSICOLON. Auto Sub for Ensure Surgery if Impact not available. 176 mL 2 4 Active aspirin 81 MG EC tablet Take 1 tablet (81 mg) by mouth 1 (one) time each day. Active cholecalciferol 25 MCG (1000 UT) tablet Take 1 tablet (1,000 Units) by mouth 1 (one) time each day. Active co-enzyme Q-10 30 MG capsule Take 1 capsule (30 mg) by mouth 1 (one) time each day. Active omega-3 (Fish Oil) 1000 MG capsule Take 1 capsule (1,000 mg) by mouth 1 (one) time each day. Active Multiple Vitamin (multivitamin) capsule Take 1 capsule by mouth 1 (one) time each day. Active Boswellia-Glucos amine-Vit D (OSTEO BI-FLEX ONE PER DAY PO) Take 1 tablet by mouth 1 (one) time each day. Active Misc Natural Products (Apple Cider Vinegar Diet) tablet Take 1 tablet by mouth 1 (one) time each day. 450 mg Active oxyCODONE (Roxicodone) 5 MG immediate release tablet Take 1 tablet (5 mg) by mouth every 6 (six) hours if needed for severe pain. 15 tablet 4 Active rivaroxaban (Xarelto) 10 MG tablet Take 1 tablet (10 mg) by mouth 1 (one) time each day for 25 days. 25 tablet 4 Active naloxone (Narcan) 4 mg/0.1 mL nasal spray 1. Give 1 spray in nostril for no/slow breathing or cannot wake after opioid use 2. Call 911 3. Repeat in other nostril if symptoms continue 1 each 4 Active tiZANidine (Zanaflex) 4 MG tablet Take 1 tablet (4 mg) by mouth every 6 (six) hours if needed for muscle spasms for up to 7 days. 28 tablet 4 Active Apple Cider Vinegar 300 MG tablet 300 mg 1 (one) time each day. 3 Active losartan (Cozaar) 50 MG tablet Take 1 tablet (50 mg) by mouth 1 (one) time each day. 4 Active amLODIPine (Norvasc) 10 MG tablet Take 1 tablet (10 mg) by mouth 1 (one) time each day. 4 Active Active Problems Problem Noted Date Diagnosed Date Cancer of sigmoid colon 08/15/2023 Overview (08/31/2023): 08/27: sigmoid colectomy Encounters Date Type Department Care Team Description 08/12/2024 Orders Only External Location [address] [place] [address] Yair Akhtar MD 08/12/2024 Orders Only External Location [address] [place] [id number] Yair Akhtar MD from Last 3 Months Family History Medical History Relation Name Comments Cancer Father Miguel morocho Anesthesia problems Neg Hx Malig Hyperthermia Neg Hx Relation Name Status Comments Father Miguel morocho Social History Tobacco Use Types Packs/Day Years Used Date Smoking Tobacco: Former Cigarettes 1 50 S tarted: 08/11/1973 Smokeless Tobacco: Never Tobacco Cessation:Counseling Given: Not Answered Alcohol Use Standard Drinks/Week Comments Yes 15 (1 standard drink = 0.6 oz pu re alcohol) drinks 2-3 beers/day Humiliation, Afraid, Rape, and Kick questionnair e Answer Date Recorded Within the last year, have y ou been afraid of your partner or ex-partner? No 08/29/2023 Within the last year, have y ou been humiliated or emotionally abused in other ways by your partner or ex-partner? No 08/29/2023 Within the last year, have y ou been kicked, hit, slapped, or otherwise physically hurt by your partner or ex-partner? No 08/29/2023 Sexually Abused Not on file 08/29/2023 Hunger Vital Sign Answer Date Recorded Within the past 12 months, y ou worried that your food would run out before you got the money to buy more. Never true 08/29/19 24 Within the past 12 months, t he food you bought just didn't last and you didn't have money to get more. Never true 08/29/2023 PRAPARE - Transportation Answer Date Re corded In the past 12 months, has l ack of transportation kept you from medical appointments or from getting medications? No 07/31 In the past 12 months, has l ack of transportation kept you from meetings, work, or from getting things needed for daily living? No 08/29/2023 Housing Stability Vital Sign Answer James e Recorded In the last 12 months, was t here a time when you were not able to pay the mortgage or rent on time? No 08/29/2023 [address] of Places Lived in the Last Year Not on f ile 08/29/2023 In the last 12 months, was t here a time when you did not have a steady place to sleep or slept in a longterm (including now)? No 08/29/2023 CAGE ASSESSMENT Answer Date Recorded Cage unable to access Not on file 08/28/2023 Cage max number of drinks Not on file 2023 Cage Beverages a week Not on file 08/28/2023 Have you ever felt you should CUT down on your d rinking? 0 08/28/2023 Have you been ANNOYED by people criticizing your drinking? 0 08/28/2023 Have you felt GUILTY about your drinking? 0 08/28/2023 Have you had a drink first t renetta in the morning (EYE-CASING MIXER) to steady your nerves or to get rid of a hangover? 0 08/28/2023 CAGE Questionnaire Score 0 024 Utilities Answer Date Recorded In the past 12 months has e [employer], gas, oil, or water [employer] threatened to shut off services in your home? No 08/29/2023 Sex and Gender Information Value Date Recorded Sex Assigned at Male 08/12/2023 7:52 AM EDT Legal Sex Male 8:40 AM EDT Gender Identity Male 08/12/2023 7:52 AM EDT Sexual Orientation Not on file Last Filed Vital Signs Vital Sign Reading Time Taken Comments Blood Pressure 138/90 03/16/2024 10:01 AM EST Pulse 72 03/16/2024 10:01 AM EST Temperature 36.8 C (98.3 F) 03/16/2024 10:01 AM EST Respiratory Rate 20 08/31/2023 1:00 PM EDT Oxygen Saturation 97% 03/16/2024 10:01 AM EST Inhaled Oxygen Concentration - - Weight 95.3 kg (210 lb 3.2 oz) 03/16/2024 10:01 AM EST Height 175.3 cm (5' 9 ) 03/16/2024 10:01 AM EST Body Mass Index 31.04 03/16/2024 10:01 AM EST Plan of Treatment Health Maintenance Due Date Last Done Comments [facility]-Depression Screening 1957 [facility]-Hepatitis C Screening 1957 [facility]-Medicare Annual Wellness (AWV) 1957 [facility]-Infant/Child/Adol SDOH Screenings 1957 [id number] Vaccine (#1) 1962 [facility]- SDOH Screenings 1975 [facility]-Adult SDOH Screenings 1975 [facility]-DTaP,Tdap,and Td Vaccines (1 - Tdap) 1976 [facility]-Pneumococcal Vaccine: 50+ Years (1 of 2 - PCV) 1976 [facility]-Zoster Vaccines (1 of 2) 1976 CT Colonography 2002 Colonoscopy 2002 FIT-DNA 2002 FIT 2002 FOBT 2002 Sigmoidoscopy 2002 [facility]-Colorectal Cancer Screening 2002 [facility]-Abdominal Aortic Aneurysm (AAA) Screening 2022 [facility]-Influenza Vaccine (Season Ended) 2024 [facility]-RSV Vaccine: 60+ Years or (1 - 1-dose 75+ series) 2032 [facility]-Lung Cancer Screening Discontinued 03/16/2024 [facility]-Obesity Intervention Completed 024, 09/16/2023, 08/15/2023, Additional history exists HPV Vaccines Aged Out No longer eligi ble based on patient's age to complete this topic [facility]-HIB Vaccines Aged Out No longer e ligible based on patient's age to complete this topic [facility]-Hepatitis A Vaccines Aged Out No longer eligible based on patient's age to complete this topic [facility]-IPV Vaccines Aged Out No longer e ligible based on patient's age to complete this topic [facility]-Rotavirus Vaccines Aged Out No lo nger eligible based on patient's age to complete this topic Procedures Procedure Name Priority Date/Time Associated Diagnosis Comments CT OUTSIDE IMAGES 08/12/2024 1:[address] OUTSIDE IMAGES 08/12/2024 1:[address] CHEST W IV CONTRAST Routine 03/16/2024 8:19 AM EST Cancer of sigmoid colon (CMS/HCC) from Last 3 Months or Most Recently Relevant to Health Maintenance Results * CT OUTSIDE IMAGES (08/12/2024 1:09 PM EDT) Only the most recent of2 resultswithin the time period is included. Anatomical Region Laterality Modality Computed Tomogra phy 08/12/2024 1:09 PM EDT Yair Akhtar MD IMG CT PROCEDURES Final Result * CT Chest w IV Contrast (03/16/2024 8:19 AM EST) Anatomical Region Laterality Modality Chest Computed Tomogra phy Impressions 03/16/2024 9:56 AM EST Chest: 4 mm right upper lobe pulmonary nodule. No thoracic adenopathy. Abdomen/Pelvis: Postoperative change associated with interval sigmoid colectomy, with subcentimeter nodular asymmetry at the anastomosis, possibly postsurgical. Attention on follow-up is recommended. No abdominopelvic adenopathy. CRITICAL RESULT: No. COMMUNICATION: Per this written report. Drafted by Pamela Priest MD on 03/16/2024 9:35 AM Final report signed by Pamela Priest MD on 03/16/2024 9:56 AM Narrative 03/16/2024 9:56 AM EST CLINICAL INDICATION: Colon cancer, staging TECHNIQUE: Multiple axial CT images were obtained from thoracic inlet through pubic symphysis following administration of IV contrast, Omnipaque 300, 100 mL. Reformatted images of the abdomen and pelvis in the coronal and sagittal planes were generated from the axial data set to facilitate diagnostic accuracy. Total DLP (Dose-Length Product): 1322.34 mGy.cm. Please note: The reported value represents the total of one or more individual components during the CT acquisition on this date and at this time, and as such, the same value may appear in more than one CT report depending on the interpreting/reporting physicians. COMPARISON: CT abdomen/pelvis from 07/30/2023 from outside facility FINDINGS: Chest: Lymph Nodes and Mediastinum: There are multiple prominent but nonenlarged mediastinal lymph nodes. No thoracic adenopathy by size criteria. No mediastinal mass lesions. 1.2 cm low-attenuation nodule in the right thyroid lobe. Cardiovascular: The heart is normal in caliber. Postoperative changes associated with prior CABG. Thoracic great vessels are patent. Lungs and Pleura: Central airways are patent. A 4 mm nodule is in the right upper lobe (series 4 image 191). No pleural effusions or suspicious thickening. Musculoskeletal and Body Wall: Sternotomy wires are in place. No aggressive osseous findings. Abdomen/Pelvis: Solid Abdominal Organs: Hepatic parenchyma is homogeneous. No suspicious hepatic mass. Gallbladder is unremarkable. No intrahepatic or extrahepatic biliary ductal dilatation. The adrenal glands are unremarkable. No suspicious renal mass. No hydronephrosis. Pancreatic parenchyma is homogeneous. Spleen is nonenlarged. GI Tract/Mesentery/Peritoneum: Stomach is unremarkable. Postoperative change associated with sigmoid colectomy, with subcentimeter nodular asymmetry at the anastomosis, possibly postsurgical (best seen on series 4 image 110 and series 3 image 230). No evidence of anastomotic complication. Diverticulosis without evidence of diverticulitis. No bowel obstruction. Appendix is unremarkable. No suspicious mesenteric or peritoneal findings. Pelvic Viscera: Urinary bladder is unremarkable. Postsurgical change associated with prior prostatectomy. Unchanged 1 cm nodular asymmetric soft tissue is along the perirectal fascia (series 3 image 265), possibly related to instrumentation particularly given history of prostatectomy. Lymph Nodes/Vasculature: No lymphadenopathy by CT size criteria. Abdominopelvic vasculature maintains normal caliber and contour. Mild calcified and noncalcified atherosclerotic plaque within the abdominal aorta and iliac arteries. The portal vein, SMV, and splenic vein are patent. Free Fluid:No ascites. Musculoskeletal and Body Wall:Postoperative change of the anterior abdominal wall. Bilateral fat-containing inguinal hernias. No aggressive osseous findings. Procedure Note Pamela Priest MD - 03/16/2024 CLINICAL INDICATION: Colon cancer, staging TECHNIQUE: Multiple axial CT images were obtained from thoracic inlet through pubicsymphysis following administration of IV contrast, Omnipaque 300, 100 mL.Reformatted images of the abdomen and pelvis in the coronal and sagittalplanes were generated from the axial data set to facilitate diagnosticaccuracy. Total DLP (Dose-Length Product): 1322.34 mGy.cm. Please note: The reportedvalue represents the total of one or more individual components during theCT acquisition on this date and at this time, and as such, the same valuemay appear in more than one CT report depending on theinterpreting/reporting physicians. COMPARISON: CT abdomen/pelvis from 07/30/2023 from outside facility FINDINGS: Chest: Lymph Nodes and Mediastinum: There are multiple prominent but nonenlargedmediastinal lymph nodes. No thoracic adenopathy by size criteria. Nomediastinal mass lesions. 1.2 cm low-attenuation nodule in the rightthyroid lobe. Cardiovascular: The heart is normal in caliber. Postoperative changesassociated with prior CABG. Thoracic great vessels are patent. Lungs and Pleura: Central airways are patent. A 4 mm nodule is in theright upper lobe (series 4 image 191). No pleural effusions or suspiciousthickening. Musculoskeletal and Body Wall: Sternotomy wires are in place. Noaggressive osseous findings. Abdomen/Pelvis: Solid Abdominal Organs: Hepatic parenchyma is homogeneous. No suspicioushepatic mass. Gallbladder is unremarkable. No intrahepatic or extrahepaticbiliary ductal dilatation. The adrenal glands are unremarkable. Nosuspicious renal mass. No hydronephrosis. Pancreatic parenchyma ishomogeneous. Spleen is nonenlarged. GI Tract/Mesentery/Peritoneum: Stomach is unremarkable. Postoperativechange associated with sigmoid colectomy, with subcentimeter nodularasymmetry at the anastomosis, possibly postsurgical (best seen on series 4image 110 and series 3 image 230). No evidence of anastomoticcomplication. Diverticulosis without evidence of diverticulitis. No bowelobstruction. Appendix is unremarkable. No suspicious mesenteric orperitoneal findings. Pelvic Viscera: Urinary bladder is unremarkable. Postsurgical changeassociated with prior prostatectomy. Unchanged 1 cm nodular asymmetricsoft tissue is along the perirectal fascia (series 3 image 265), possiblyrelated to instrumentation particularly given history of prostatectomy. Lymph Nodes/Vasculature: No lymphadenopathy by CT size criteria.Abdominopelvic vasculature maintains normal caliber and contour. Mildcalcified and noncalcified atherosclerotic plaque within the abdominalaorta and iliac arteries. The portal vein, SMV, and splenic vein arepatent. Free Fluid:No ascites. Musculoskeletal and Body Wall:Postoperative change of the anteriorabdominal wall. Bilateral fat-containing inguinal hernias. No aggressiveosseous findings. IMPRESSION: Chest: 4 mm right upper lobe pulmonary nodule. No thoracic adenopathy. Abdomen/Pelvis: Postoperative change associated with interval sigmoid colectomy, withsubcentimeter nodular asymmetry at the anastomosis, possibly postsurgical.Attention on follow- up is recommended. No abdominopelvic adenopathy. CRITICAL RESULT: No. COMMUNICATION: Per this written report. Drafted by Pamela Priest MD on 03/16/2024 9:35 AM Final report signed by Pamela Priest MD on 03/16/2024 9:56 AM Yair Akhtar MD IM CT PROCEDURES Final Result from Last 3 Months or Most Recently Relevant to Health Maintenance Insurance [facility] [address] [id number] [place] [address] [facility] Advance Directives * Full Code (Latest Code Status on File) Date Activated Date Inactivated Comments 08/28/2023 5:05 PM 08/31/2023 7:45 PM Question Answer Comments Patient has decision-making capacity? Yes Care Teams Physician Allergist Immunologist Relationship Specialty Start Date End Date Pilar Alexander APRN [address] [place] [address] PCP - General 03/31/23
--- OUTSIDE RECORDS SUMMARY | 2024-09-05 10:16 | XMS_ITS | Referral Summary ---
Author Organization [employer] [facility] [employer] Address [address] [place] [address] Care Team Providers Care Boy'S Adviser Name Role Phone Pilar Alexander APRN Primary Care Provider Mary Grace Camp MD Unavailable [phone] Allergies No known active allergies Medications ubidecarenone (CO Q-10 ORAL) Take by mouth. Active docosahexaenoic acid/epa (FISH OIL ORAL) Take by mouth. Activ e aspirin 81 MG EC tablet Take 1 tablet (81 mg total) by mouth daily. Active metFORMIN (GLUCOPHAGE) 500 MG tablet Take 1 tablet (500 mg total) by mouth daily with breakfast Look-alike/S ound-alike medication. Active lisinopriL (PRINIVIL,ZESTR IL) 20 MG tablet Take 1 tablet (20 mg total) by mouth daily. 60 tablet 4 Active metoprolol succinate (TOPROL-XL) 50 MG 24 hr tablet Take 1 tablet (50 mg total) by mouth daily. 90 tablet 3 4 Active atorvastatin (LIPITOR) 40 MG tablet Take 1 tablet (40 mg total) by mouth daily. 90 tablet 3 4 Active amLODIPine (NORVASC) 5 MG tablet Take 1 tablet (5 mg total) by mouth daily. 30 tablet 3 4 Active Active Problems Problem Noted Date Diagnosed Date Heart murmur 07/31/2023 HTN (hypertension) 07/31/2023 Arteriosclerosis of coronary artery 07/31/2023 HLD (hyperlipidemia) 07/31/2023 COPD (chronic obstructive pulmonary disease) 05/2023 Social History Tobacco Use Types Packs/Day Years Used Date Smoking Tobacco: Every Day Cigarettes Smokeless Tobacco: Never Tobacco Cessation:Ready to Q uit: Not Asked; Counseling Given: Not Answered Alcohol Use Standard Drinks/Week Comments Yes 0 (1 standard drink = 0.6 oz pur e alcohol) Interpersonal Safety Answer Date Record ed Family or friends hurt you Not on file 07/30 Family or friends insult you Not on file 05/2023 Family or friends threaten you Not on file 0 07/31/2023 Family or friends scream or curse at you Not on file 07/31/2023 Family and Community Support Answer James e Recorded Help with Day to Day Activities Not on file 07/31/2023 Feeling Lonely or Isolated Not on file 07/30 Educational Attainment Answer Date Todd rded Speak language other than Armenian at home Not on file 07/31/2023 Want help with school or training Not on file 07/31/2023 Depression Answer Date Recorded PHQ-2 Risk Not on file 07/31/2023 Disabilities Answer Date Recorded Difficulty concentrating Not on file 024 Difficulty doing errands alone Not on file 0 07/31/2023 Substance Use Answer Date Recorded Used prescription meds for non-medical reasons N ot on file 07/31/2023 Used illegal drugs past 12 months Not on file 07/31/2023 Sex and Gender Information Value Date Recorded Sex Assigned at Not on file Legal Sex Male 1:41 PM CDT Gender Identity Not on file Sexual Orientation Not on file Last Filed Vital Signs Vital Sign Reading Time Taken Comments Blood Pressure 170/100 08/01/2023 1:38 PM EDT Pulse 90 08/01/2023 1:38 PM EDT Temperature - - Respiratory Rate - - Oxygen Saturation - - Inhaled Oxygen Concentration - - Weight 90.5 kg (199 lb 9.6 oz) 08/01/2023 1:38 P M EDT Height 172.7 cm (5' 8 ) 08/01/2023 1:38 PM EDT Body Mass Index 30.35 08/01/2023 1:38 PM EDT Plan of Treatment Not on file Insurance [employer] MCR SUPP MEDICARE PART A B Care Teams Boy'S Adviser Relationship Specialty Start Date End Date Pilar Alexander, YING [address] [place] [address] PCP - General Nurse Practitioner 08/01/23 Mary Grace Camp MD [address] [facility] [place] [address] Interventional Cardiology 08/01/23
--- OUTSIDE RECORDS SUMMARY | 2024-09-05 10:16 | XMS_ITS | Encounter Summary ---
Author Organization [employer] Address [address] [facility] [place] [address] Care Team Providers Care Malt Roaster Name Role Phone Benjamin Pilar YING Primary Care Provider [phone] Mary Grace Camp MD Unavailable [phone] Encounter Details Date Type Department Care Team (Late st Contact Info) Description 08/08/2020 Transcribed Document [facility] Cardiology [address] [place] [address] [address] [place] [address] Mary Grace Camp MD [address] [facility] [address] [place] [address] Social History Tobacco Use Types Packs/Day Years Used Date Smoking Tobacco: Never Assessed Sex and Gender Information Value Date Recorded Sex Assigned at Not on file Legal Sex Male 1:41 PM CDT Gender Identity Not on file Sexual Orientation Not on file documented as of this encounter Miscellaneous Notes * Cerner Conversion Note - Mary Grace Camp MD - 08/08/2020 8:52 AM EDT DATE OF SERVICE: This patient underwent a stress test with a myocardial perfusion study. The EKG portion of which was unremarkable. NUCLEAR SCAN: There appears to be within normal myocardial perfusion. Normal wall motion and wall thickening appreciated. Ejection fraction 70%. IMPRESSION: 1. Normal study. 2. Ejection fraction 70%. /[id number] MD AMA Leonard/AQ / AMA / MODL /[id number] documented in this encounter Plan of Treatment Not on file documented as of this encounter Visit Diagnoses Not on filedocumented in this encounter Care Teams Malt Roaster Relationship Specialty Start Date End Date Benjamin Pilar, PATTERN TECHNICIAN [address] [place] [address] PCP - General Nurse Practitioner 08/01/23 Mary Grace Camp MD [address] [place] [address] [place] [address] Interventional Cardiology 08/01/23 documented as of this encounter
--- OUTSIDE RECORDS SUMMARY | 2024-09-05 10:16 | XMS_ITS | Encounter Summary ---
Author Organization [facility] Address [address] [place] [address] Care Team Providers Care High Risk Case Manager Name Role Phone Pilar Alexander APRN Primary Care Provider [phone] Reason for Referral * Consultation (Routine) - Closed Specialty Diagnoses / Procedures Referred By Alejandra jaquez Referred To Contact Surgical Oncology / Hematology and Oncology Diagnoses Colonic mass Nikko Perales MD [address] [facility] [place] [address] Phone: tel: fax: Referral ID Status Reason Start Date Expiration Date V isits Requested Visits Authorized [id number] Closed Specialty Services Required 08/04/2023 02/02/2025 1 1 Encounter Details Date Type Department Care Team (Late st Contact Info) Description 08/04/2023 Community Orders Community Practice [address] [place] [address] Nikko Perales MD [address] [facility] [place], [place] [id number] Colonic mass (Primary Dx) Social History Tobacco Use Types Packs/Day Years Used Date Smoking Tobacco: Never Assessed Sex and Gender Information Value Date Recorded Sex Assigned at Male 08/12/2023 7:52 AM EDT Legal Sex Male 8:40 AM EDT Gender Identity Male 08/12/2023 7:52 AM EDT Sexual Orientation Not on file documented as of this encounter Plan of Treatment Scheduled Referrals Name Type Priority Associated Diagnoses Order Schedule Ambulatory referral to Surgical Oncology Outpatient Referral Routine Colonic mass Expected: 08/04/2023 (Approximate), Expires: 02/03/2025 documented as of this encounter Visit Diagnoses Diagnosis Colonic mass- Primary documented in this encounter Care Teams High Risk Case Manager Relationship Specialty Start Date End Date Pilar Alexander APRN [address] [id number] PCP - General 03/31/23 documented as of this encounter
--- OUTSIDE RECORDS SUMMARY | 2024-09-05 10:16 | XMS_ITS | Data Portability ---
Author Organization OR - [facility] & [facility] ADMIN Address [address] [place] [id number] Care Team Providers Care Business Support Liaison Name Role Phone ROMA LEO Primary Care Provider Assessment No assessment recorded. Plan of Treatment Reminders Order Date Submit Date Provider Last Modified By Organization Details Last Modified Time Details Appointments None record ed. Lab None record ed. Referral None record ed. Procedures None record ed. Surgeries None record ed. Imaging None record ed. Medication Orders None record ed. Patient TargetsNo targets recorded. Patient InstructionsNo instructions recorded. Reason for Referral None Reported. Results Created Date Observation Date Name Description Value Unit Range Abnormal Flag Note LastModifiedBy Organization Detail LastModifiedTime 07/30/19 24 07/30/2023 CBC AUTO NO DIFF (HEMO GRAM) WBC 6.7 K/uL 4.0-10 .5 Not Available [facility] ([facility]) [address] , [place], [address], 07/30/2023 10:54:27 07/30/19 24 07/30/2023 CBC AUTO NO DIFF (HEMO GRAM) RBC 4.7 M/mm3 4.7-6. 1 Not Available [facility] ([facility]) [address], [place], [address], 07/30/2023 10:54:27 07/30/19 24 07/30/2023 CBC AUTO NO DIFF (HEMO GRAM) HGB 14.9 gm/dL 13.5-1 8.0 Not Available [facility] ([facility]) [address], [place], [address], 07/30/2023 10:54:27 07/30/19 24 07/30/2023 CBC AUTO NO DIFF (HEMO GRAM) HCT 44.1 % 42.0-5 2.0 Not Available [facility] ([facility]) [address], [place], [address], 07/30/2023 10:54:27 07/30/19 24 07/30/2023 CBC AUTO NO DIFF (HEMO GRAM) MCV 93.4 fL 78-100 Not Available [facility] ([facility]) [address], [place], [address], 07/30/2023 10:54:27 07/30/19 24 07/30/2023 CBC AUTO NO DIFF (HEMO GRAM) MCH 31.6 pg 27-31 high Not Available [facility] ([facility]) [address], [place], [address], 07/30/2023 10:54:27 07/30/19 24 07/30/2023 CBC AUTO NO DIFF (HEMO GRAM) MCHC 33.8 g/dL 32-36 Not Available [facility] ([facility]) [address], [place], [address], 07/30/2023 10:54:27 07/30/19 24 07/30/2023 CBC AUTO NO DIFF (HEMO GRAM) RDW 12.3 % 11.5-1 4.0 Not Available [facility] ([facility]) [address], [place], [address], 07/30/2023 10:54:27 07/30/19 24 07/30/2023 CBC AUTO NO DIFF (HEMO GRAM) platelet count 185 K/uL 150-45 0 Not Available [facility] ([facility]) [address], [place], [address], 07/30/2023 10:54:27 07/30/19 24 07/30/2023 CBC AUTO NO DIFF (HEMO GRAM) MPV 9.7 fL 6-9.5 high Not Available [facility] ([facility]) [address], [place], [address], 07/30/2023 10:54:27 07/30/19 24 07/30/2023 CBC AUTO NO DIFF (HEMO GRAM) manual differential NO Not Available [facility] ([facility]) [address], [place], [address], 07/30/2023 10:54:27 07/30/19 24 07/30/2023 PT (PROT HROMB IN TIME) W INR prothrombin time 10.1 secon ds 9.3-11 .4 Not Available [facility] ([facility]) [address], [place], [address], 07/30/2023 11:23:19 07/30/19 24 07/30/2023 PT (PROT [...] Mecha nical Heart Valve s Not Available [facility] ([facility]) [address], [place], [address], 07/30/2023 11:23:19 07/30/19 24 07/30/2023 COMP METAB OLIC PANEL sodium 139 mmol/ L 136-14 5 Not Available [facility] ([facility]) [address], [place], [address], 07/30/2023 11:34:15 07/30/19 24 07/30/2023 COMP METAB OLIC PANEL potassium 4.5 mmol/ L 3.6-5. 0 Not Available [facility] ([facility]) [address], [place], [address], 07/30/2023 11:34:15 07/30/19 24 07/30/2023 COMP METAB OLIC PANEL chloride 103 mmol/ L 98-107 Not Available [facility] ([facility]) [address], [place], [address], 07/30/2023 11:34:15 07/30/19 24 07/30/2023 COMP METAB OLIC PANEL carbon dioxide 26.6 mmol/ L 21.0-3 2.0 Not Available [facility] ([facility]) [address], [place], [address], 07/30/2023 11:34:15 07/30/19 24 07/30/2023 COMP METAB OLIC PANEL anion gap 13.9 Not Available [facility] ([facility]) [address] , [place], [address], 07/30/2023 11:34:15 07/30/19 24 07/30/2023 COMP METAB OLIC PANEL glucose 121 mg/dL 70-120 high Not Available [facility] ([facility]) [address] , [place], [address], 07/30/2023 11:34:15 07/30/19 24 07/30/2023 COMP METAB OLIC PANEL BUN 15 mg/dL 7-18 Not Available [facility] ([facility]) [address] , [place], [address], 07/30/2023 11:34:15 07/30/19 24 07/30/2023 COMP METAB OLIC PANEL creatinine 1.1 mg/dL 0.6-1. 3 Not Available [facility] ([facility]) [address] [place], [address], 07/30/2023 11:34:15 07/30/19 24 07/30/2023 COMP METAB OLIC PANEL glomerular filtration rate >60 mlper min 60- Not Available [facility] ([facility]) [address], [place], [address], 07/30/2023 11:34:15 07/30/19 24 07/30/2023 COMP METAB OLIC PANEL total protein 7.2 g/dL 6.4-8. 2 Not Available [facility] ([facility]) [address], [place], [address], 07/30/2023 11:34:15 07/30/19 24 07/30/2023 COMP METAB OLIC PANEL albumin 4.3 g/dL 3.4-5. 0 Not Available [facility] ([facility]) [address], [place], [address], 07/30/2023 11:34:15 07/30/19 24 07/30/2023 COMP METAB OLIC PANEL globulin 2.9 Not Available [facility] [address], [place], [address], 07/30/2023 11:34:15 07/30/19 24 07/30/2023 COMP METAB OLIC PANEL alb/glob ratio 1.5 0.7-2 Not Available [facility] ([facility]) [address], [place], [address], 07/30/2023 11:34:15 07/30/19 24 07/30/2023 COMP METAB OLIC PANEL calcium 9.2 mg/dL 8.5-10 .5 Not Available [facility] ([facility]) [address] [place], [address], 07/30/2023 11:34:15 07/30/19 24 07/30/2023 COMP METAB OLIC PANEL bilirubin total 0.70 mg/dL 0.10-1 .00 Not Available [facility] ([facility]) [address] [place], [address], 07/30/2023 11:34:15 07/30/19 24 07/30/2023 COMP METAB OLIC PANEL AST (SGOT) 35 U/L 0-37 Not Available [facility] ([facility]) [address], [place], [address], 07/30/2023 11:34:15 07/30/19 24 07/30/2023 COMP METAB OLIC PANEL ALT (SGPT) 76 U/L 0-65 high Not Available [facility] ([facility]) [address], [place], [address], 07/30/2023 11:34:15 07/30/19 24 07/30/2023 COMP METAB OLIC PANEL alk phosphatase 98 U/L 46-116 Not Available [facility] ([facility]) [address], [place], [address], 07/30/2023 11:34:15 07/30/19 24 07/31/2023 CEA cea 3.9 NG/mL 0.0-4. 7 Nonsm okers <3.9 Smoke rs <5.6 . 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 Value s obtai geno with diffe rent assay metho ds or kits canno t be used inter childs eaezra . Resul ts canno t be inter prete d as absol karuk evide nce of the prese nce or absen ce of [facility] . Perfo rmed at: [facility] - [facility] [address], [place] [address] [facility] Direc tor: Alexandro aguilar PhD, Phone : [phone] Not Available [facility] ([facility]) [address] , [place], [address], 07/31/2023 13:12:11 07/30/19 24 07/30/2023 CT, chest , w/ contr ast [facility] [address] [place] [address] Phone: Fax: Name: RONALD MARQUEZ Exam Date: 07/30/19 24 : 958 Age 68 years Gender : M Access ion: [id number] Physic myron: CASE, CHEY Facili ty: [place] Facili ty HSV: Outpat ient Exam: CT [...] Thank you for referr RONALD Ortega to [facility] al. Legall y authen ticate d by POPE JEREMY Julio 07-29 12:28: 02 CC'ed Logic: Orderi ng Provid er: BLAYNE CHEY Attend ing Provid er: BLAYNE CHEY Admitt ing Provid er: BLAYNE GUERRIER [email or web address] [facility] [address], [place], [address], 08/06/2023 15:30:59 Result Notes None recorded. Procedures Surgical History Date Name Laterality Status Provider Name and Address Organization Details Recorded Time 2 Cancer Surgery completed Hilary RODRIGUEZ [facility] & [place] 08/06/2023 10:26:40 2 Cancer Surgery completed Hilary RODRIGUEZ [facility] & [place] 08/06/2023 10:26:26 procedure on heart completed Hilary Grier [place] - [facility] - [place] & [place] 08/06/2023 10:27:32 Imaging Results None recorded. Procedure Notes None recorded. Medical Equipment None Reported. Allergies No known drug allergies Medications Name Sig Start Date Stop Date Status Note LastModified by Organization Details LastModified Time losartan 50 mg tablet TAKE 1 TABLET BY MOUTH ONCE DAILY active Not Available Not Available No t Available atorvastati n 40 mg tablet TAKE 1 TABLET BY MOUTH ONCE DAILY active Not Available Not Available No t Available cetirizine 10 mg tablet TAKE 1 TABLET BY MOUTH ONCE DAILY active Not Available Not Available No t Available metoprolol succinate ER 50 mg tablet,exte nded release 24 hr TAKE 1 TABLET BY MOUTH ONCE DAILY active Not Available Not Available No t Available lisinopril 20 mg tablet TAKE 1 TABLET BY MOUTH ONCE DAILY active Not Available Not Available No t Available prednisone 20 mg tablet TAKE 3 TABLETS BY MOUTH ONCE DAILY WITH FOOD OR MILK FOR 10 DAYS active Not Available Not Available No t Available Accu-Chek Softclix Lancets USE 1 TO CHECK GLUCOSE ONCE DAILY active Not Available Not Available No t Available amlodipine 5 mg tablet TAKE 1 TABLET BY MOUTH ONCE DAILY active Not Available Not Available No t Available famotidine 20 mg tablet TAKE 1 TABLET BY MOUTH TWICE DAILY active Not Available Not Available No t Available amlodipine 10 mg tablet TAKE 1 TABLET BY MOUTH ONCE DAILY active Not Available Not Available No t Available hydroxyzine HCl 25 mg tablet TAKE 1 TABLET BY MOUTH EVERY 8 HOURS active Not Available Not Available No t [...] sulfates 17.5 gram-3.13 gram-1.6 gram oral soln TAKE 6 OUNCES TWICE A DAY BY MOUTH DIRECTED FOR 1 DAY, FOR COLONOSCO PY PREP. active Not Available Not Available No t Available Accu-Chek Guide test strips USE 1 STRIP ONCE DAILY active Not Available Not Available [...] Updated DateTime 4 172.72 cm 30.7 kg/m2 09382.3 g 98.9 [degF] 98 % 98 % 74 /min 211 mm[Hg] 101 mm[Hg] Hilary Grier [facility] & [place] 10:23:49 Social History Question Answer Notes LastModified by Organizat ion Details LastModified Time Tobacco Smoking Status Current Every Day Smoker Hilary Grier [facility] & [place] 08/06/2023 10:24:11 Do You Have An Advance Directive? Yes [email or web address] Information not available 08/06/2023 Are You Blind Or Do You Have Difficulty Seeing? No [email or web address] Information not available 08/06/2023 What Is Your Level Of Caffeine Consumption? None [email or web address] Information not available 08/06/2023 What Was The Date Of Your Most Recent Tobacco Screening? 08/03/2023 [email or web address] Information not available 08/06/2023 Are You Passively Exposed To Smoke? No [email or web address] Information not available 08/06/2023 How Much Tobacco Do You Smoke? 0.5 PPD [email or web address] Information not available 08/06/2023 Has Tobacco Cessation Counseling Been Provided? No [email or web address] Information not available 08/06/2023 How Many Years Have You Smoked Tobacco? 40 Information not available 08/06/2023 Sex: Unknown Functional Status Question Answer Note LastModified by Organizat ion Details LastModified Time Do you use any illicit or recreational drugs? No [email or web address] Information not available 08/06/2023 Do you or have you ever used any other forms of tobacco or nicotine? No [email or web address] Information not available 08/06/2023 What is your level of alcohol consumption? Moderate [email or web address] Information not available 08/06/2023 Do you or have you ever used smokeless tobacco? Never used smokeless tobacco [email or web address] Information not available 08/06/2023 What is your exercise level? Occasional [email or web address] Information not available 08/06/2023 Mental Status Question Answer Note LastModified by Organization D etails LastModified Time Do you feel stressed (tense, restless, nervous, or anxious, or unable to sleep at night)? [id number] [email or web address] Information not available 08/06/2023 Family History Relationship Description Onset Age of this Age Resolved Age Notes LastModified by Organization Details LastModified Time Father Carcinoma in situ of urinary bladder primar y [email or web address] Not available 08/06/2023 10:25:15 Father Carcinoma of prostate primar y 19 yrs apart from bladde r [email or web address] Not available 08/06/2023 10:25:38 Medical History Condition Response Hypertension Y High Cholesterol Y Past Encounters Encounter ID Performer Location Encounter Start Date Encounter Closed Date Diagnosis/Indication Diagnosis SNOMED-CT Code Diagnosis ICD10 Code Diagnosis Note [id number] Nikko Perales MD [facility] [address] [place] [address] 08/06/2023 10:04:38 08/06/2023 11:18:46 Rectal mass [id number] R19.00 Colonoscop y on July 30, 2023 [...] Hemoglobin 14.9 and hematocrit 44.1. Platelet count [id number]. Normal renal function testing with GFR greater [...] Patient has appointmen t with Colorectal surgery [facility]. Will follow-up evaluation . Health Concerns Section Related Observation LastModified by Organization Detai ls LastModified Time None Recorded Concern Status LastModified by Organization Details LastModified Time None Recorded Advance Directives Directive Y: Payers Insurance Date Sequence Insurance Name Policy Number Policy Swenson Covered Member ID Swenson Member ID Guarantor Name 08/06/2023 2 [employer] [place] [id number] [place] 08/09/2024 1 [place] [id number] [place] 08/06/2023 2 [employer] (MEDICARE SUPPLEMENT) [place] [id number] [place] 08/17/2024 2 [employer]IGNA SUPPLEMENTAL - [employer] HE[employer] AND LIFE INSURANCE (MEDICARE SUPPLEMENT) [place] [id number] [place] 07/28/2023 3 CIGNA SUPPLEMENTAL - [facility] (MEDICARE SUPPLEMENT) [place] [id number] [place]ón [place] Notes Date Note Type Note [...] Hemoglobin 14.9 and hematocrit 44.1. Platelet count [id number]. Normal renal function testing with GFR greater [...] genetic testing. Will follow-up Nikko Perales MD [address], [place], [address], [place] - [facility] - [place] & [place] 08/06/2023 11:18:01
--- OUTSIDE RECORDS SUMMARY | 2024-09-05 10:16 | XMS_ITS | Clinical Summary ---
Author Organization [employer] Address [address] [place] [address] Care Team Providers Care Supervisor Roving Name Role Phone Pilar Alexander APRN Primary Care Provider Mary Grace Camp MD Unavailable [phone] Allergies No known active allergies Medications [...] 07/31/2023 COPD (chronic obstructive pulmonary disease) 05/2023 Family History Medical History Relation Name Comments No Known Problem Father Hyperlipidemia Mother Relation Name Status Comments Father Mother Social History Tobacco Use Types Packs/Day Years [...] Date Todd rded Speak language other than Citizen Of [place] at home Not on file 07/31/2023 Want [...] 08/01/2023 1:38 PM EDT Plan of Treatment Health Maintenance Due Date Last Done Comments CT Colonography 1957 Colonoscopy 1957 Colorectal Cancer Screening 1957 FOBT/FIT 1957 Fit-DNA (Cologuard) 1957 Sigmoidoscopy 1957 Depression Screening (12+) 1969 Hepatitis C Screening 1975 DTAP/TDAP/TD VACCINES (1 - Tdap) 1976 Pneumococcal 50+ years (1 of 2 - PCV) 1976 Shingles Vaccine (Zoster) (1 of 2) 2007 Respiratory Syncytial Virus (RSV) Adult or (1 - Risk 60-74 years 1-dose series) 2017 Medicare Initial AWV [id number] 05/02/2023 COVID-19 VACCINE ( - 2023- season) 2023 Falls Risk Screening 03/31/2024 Tobacco Cessation Counseling and Screening (12+) 07/3108/01/2023 Influenza Vaccine (Season Ended) 2024 Insurance [facility] MEDICARE PART A B Care Teams Supervisor Roving Relationship Specialty Start Date End Date Pilar Alexander, DEBURRER [address] [place] [address] PCP - General Nurse Practitioner 08/01/23 Mary Grace Camp MD [address] [facility] [place] [address] Interventional Cardiology 08/01/23
--- OUTSIDE RECORDS SUMMARY | 2024-09-05 10:16 | XMS_ITS | Encounter Summary ---
Author Organization Healthcare Address [address] [place] [address] Care Team Providers Care Interior Decorator Painting Name Role Phone Pilar Alexander Blanca HE Primary Care Provider [phone] Encounter Details Date Type Department Care Team (Late st Contact Info) Description 08/12/2024 Orders Only External Location [address] [place] [address] Yair Akhtar MD [address] [facility] [address] [place] [address] Social History Tobacco Use Types Packs/Day Years Used Date Smoking Tobacco: Former Cigarettes 1 50 S tarted: 08/11/1973 Smokeless Tobacco: Never Alcohol Use Standard Drinks/Week Comments Yes 15 [...] place to sleep or slept in a [facility] (including now)? No 08/29/2023 CAGE ASSESSMENT Answer [...] drink first t renetta in the morning (EYE-CLARIFIER OPERATOR HELPER) to steady your nerves or to get rid of a hangover? 0 08/28/2023 CAGE Questionnaire Score 0 024 Utilities Answer Date Recorded In the past 12 months has th e electric, gas, oil, or water company threatened to shut off services in your [...] Associated Diagnosis Comments CT OUTSIDE IMAGES 08/12/2024 1:09 PM EDT documented in this encounter Results * CT OUTSIDE IMAGES (08/12/2024 1:09 PM EDT) Anatomical Region Laterality Modality Computed Tomogra phy 08/12/2024 1:09 PM EDT Yair Akhtar MD IMG CT PROCEDURES Final Result documented in this encounter Visit Diagnoses Not on filedocumented in this encounter Additional Health Concerns Assessment Noted Time A fall risk assessment has been complete d for the patient 03/16/2024 10:02 AM EST A Body Mass Index follow-up plan has been documented for the patient 03/22/2024 4:46 PM EST documented as of this encounter Care Teams Interior Decorator Painting Relationship Specialty Start Date End Date Pilar Alexander APRN [address] [place] [address] PCP - General 03/31/23 documented as of this encounter
--- OUTSIDE RECORDS SUMMARY | 2024-09-05 10:16 | XMS_ITS | Encounter Summary ---
Author Organization Healthcare Address [address] [place] [address] Care Team Providers Care Digital Manager Name Role Phone Pilar Alexander Blanca HE Primary Care Provider [phone] Encounter Details Date Type Department Care Team (Late st Contact Info) Description 08/12/2024 Orders Only External Location [address] [place] [address] Yair Akhtar MD [address] [facility] [address] [place] [address] Social History Tobacco Use Types Packs/Day Years [...] place to sleep or slept in a [facility] (including now)? No 08/29/2023 CAGE ASSESSMENT Answer [...] drink first t renetta in the morning (EYE-DEPUTY COUNTY COUNSEL) to steady your nerves or to get [...] documented as of this encounter Care Teams Digital Manager Relationship Specialty Start Date End Date Pilar Alexander APRN [address] [place] [address] PCP - General 03/31/23 documented as of this encounter
--- NOTE | 2024-09-05 10:19 | XR_ITS ---
PROCEDURE INFORMATION: Exam: XR Chest Exam date and time: 09/05/2024 10:23 AM Age: 69 years old Clinical indication: Shortness of breath; Additional info: SOA TECHNIQUE: Imaging protocol: Radiologic exam of the chest. Views: 2 views. COMPARISON: No relevant prior studies available. FINDINGS: Lungs: Streaky airspace opacities in lower lobes could be attributed to atelectasis versus developing pneumonia/aspiration in the appropriate clinical context. Pleural spaces: Unremarkable. No pleural effusion. No pneumothorax. 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 Calcified mediastinal and hilar lymph nodes suggest prior granulomatous exposure. Bones/joints: Sternotomy wires are intact. IMPRESSION: Streaky airspace opacities in lower lobes could be attributed to atelectasis versus developing pneumonia/aspiration in the appropriate clinical context.
--- NOTE | 2024-09-05 10:29 | [facility].EDCP ---
Discharge Plan Disposition Patient Disposition: Admitted Condition: Good Clinical Impressions Clinical Impression: Rash, Embedded tick of lower leg, New onset a-fib, Acute heart failure Discharge ED Provider: Tosha Mayo HPI General Chief Complaint: Shortness of Breath/Dyspnea Stated Complaint: SOA, rash on body Time Seen by Provider: 09/05/24 09:56 Mode of Arrival: Ambulatory Source of Information: Patient and Spouse Description of Symptoms (Recalled from ER Triage Doc. by RN): pt presents to the ED with shortness of breath and a rash. pt reports that the shortness of breath started 2 days ago and hasn't improved. pt reports he has a rash all over his body that first started in the middle of June. pt was started on Prednisone and finished it 10 days ago. After finishing the medication prescribed the rash has came back and gotten worse. per pt's spouse she noticed a spot on the pt right leg and is concerned it might be a bite . no recent fevers or chest pain noted. pt has had increased swelling that started in June. History of Present Illness HPI narrative: This patient is a 69-year-old male with history of hypertension, hyperlipidemia, CAD status post CABG, and diabetes presenting to the emergency department for evaluation with concern for shortness of breath. According to the patient, he started feeling short of breath about 2 or 3 days ago and it has been progressively worsened since then. He denies any fevers, cough, chest pain, abdominal pain, vomiting, or other concerns. No history of cardiopulmonary issues reported aside from CAD status post CABG. He also has no history of blood clots or clotting issues reported. Of note, he has had a disseminated erythematous pruritic rash, worse on his torso/back, for the last 6 weeks. He has been referred to an store coordinator, but allergy testing was negative. They also switched all of their detergents and soaps to hypoallergenic, but the rash has been persistent. It improved on a 10-day course of prednisone, which was finished about 10 days ago. Since then, it started worsening again. No mucosal involvement, pulm involvement, blistering, bullae, sloughing, or other concerns noted. They deny noting any tick bites or other acute concerns, no known new exposures, no history of any skin disorders or rashes, no new contacts aside from the new hypoallergenic things that they started after the rash already started. Related Data Home Medications ?Medication ?Instructions ?Recorded ?Confirmed apple cider vinegar 300 mg tablet 300 mg PO DAILY 03/03/23 09/05/24 aspirin 81 mg chewable tablet 81 mg PO DAILY 03/03/23 09/05/24 atorvastatin 40 mg tablet 40 mg PO DAILY 03/03/23 09/05/24 coenzyme Q10 200 mg capsule 200 mg PO DAILY 03/03/23 09/05/24 cholecalciferol (vitamin D3) 25 25 mcg PO DAILY 07/14/23 09/05/24 mcg (1,000 unit) capsule metoprolol succinate 50 mg 50 mg PO DAILY 01/12/24 09/05/24 tablet,extended release 24 hr omega 9-tns-hna-fish oil 60 mg-90 1 cap PO DAILY 04/02/24 09/05/24 mg-500 mg capsule (Fish Oil) cetirizine 10 mg tablet 10 mg PO DAILY 09/05/24 09/05/24 famotidine 20 mg tablet 20 mg PO BID 09/05/24 09/05/24 hydroxyzine HCl 25 mg tablet 25 mg PO Q8H 09/05/24 09/05/24 Previous Rx's ?Medication ?Instructions ?Recorded losartan 50 mg tablet 50 mg PO DAILY #90 tabs 01/13/24 amlodipine 10 mg tablet 10 mg PO DAILY #90 tabs 07/09/24 Allergies Allergy/AdvReac Type Severity Reaction Status Date / Time No Known Allergies Allergy Verified 07/09/24 08:29 [facility] Disclaimer: The information contained in this section may have been updated after the patient was seen, as this information can be updated by other users. Medical History Hyperlipidemia Hypertension Prostate cancer Surgical History History of prostate surgery Hx of heart surgery Social History Smoking Status: Never smoker alcohol intake: current alcohol intake frequency: 3 or more drinks per day current occupational status: retired Travel in the last 8 weeks?: None Have you lived/traveled outside [place] in past 30 days?: No Contact w/someone who lives/traveled outside [place] past 30 days?: No Exposure to someone with infectious disease in past 14 days?: No Do you have a fever (greater than 100.4 F or 38 C)?: No Have you tested positive for COVID-19?: No Exposed to someone with COVID-19 in past 14 days?: No Do you have a sore throat?: No Do you have a cough?: No Do you have any weakness?: No Do you have any diarrhea?: No Are you experiencing any unusual bleeding?: No Do you have any muscle aches/pain?: No Do you have any abdominal pain?: No Are you experiencing loss of taste or smell?: No Other Medical History Have you received the Pneumonia Vaccine: No ROS Obtained: Yes All systems reviewed & no additional complaints except as documented Physical Exam General General appearance: alert and in no apparent distress Comment: Slight increased work of breathing Head Head exam: atraumatic and normocephalic Eye Eye exam: Present normal appearance, PERRL and EOMI ENT ENT exam: Present normal exam, normal oropharynx, mucous membranes moist and normal external ear exam Neck Neck exam: Present normal inspection, full ROM and trachea midline; Absent tenderness Chest Chest inspection: Present normal inspection and symmetric chest wall rise; Absent tenderness Respiratory Respiratory exam: Present accessory muscle use and other (Clear lung sounds bilaterally, but the patient has increased work of breathing with mild accessory muscle use and tachypnea); Absent wheezes or stridor Cardiovascular Cardiovascular exam: Present normal rhythm and tachycardia Abdominal Exam Abdominal exam: Present soft; Absent distention, tenderness or guarding Extremities Exam Extremities exam: Present full ROM and normal capillary refill; Absent tenderness or edema Expanded Lower Extremity Exam Right: Leg image:  1. Embedded tick 2. Embedded tick Back Exam Back exam: Present normal inspection and full ROM; Absent tenderness Neurological Exam Neurological exam: Present alert, oriented X3, CN II-XII intact and normal gait; Absent motor sensory deficit Psychiatric Psychiatric exam: Present normal affect and normal mood Skin Skin exam: Present warm, dry and rash (Scaly and erythematous macular rash, mostly concentrated on the torso with large areas of confluence in the middle of the back and abdomen. Rash is blanching with negative Nikolsky sign, no bullae, sloughing, mucosal involvement) HEART Score HEART Score HEART Score assessment performed?: Yes History (anamnesis): Slightly suspicious ECG: Non-specific disturbance Age: >65 years Risk factors: Atherosclerosis history Troponin: </= normal limit HEART Score: 5 Critical Care Critical Care Time Critical Care Time: Yes Attestation: On 09/05/24, the high probability of a clinically significant, sudden or life threatening deterioration of the following system(s) required my full and direct attention, intervention and personal management. The time I documented below is in addition to time spent performing reported procedures but includes the following listed in this critical care notation. Total Time Total Critical Care Time: 35 Medical Decision Making Alvin Inquiry Pt receiving controlled substance: No Vital Signs Vital Signs: 09/05/24 09:52 09/05/24 09:58 09/05/24 10:00 Temperature 98.5 F Temperature Source Oral Pulse Rate 99 H 92 H Pulse Rate [Right] 92 H Respiratory Rate 17 29 H Blood Pressure 169/82 H 168/91 H Blood Pressure [Right Arm] 169/82 H Blood Pressure Mean [Right Arm] 111 Blood Pressure Source Blood Pressure Source [Right Arm] Automatic Cuff Blood Pressure Position Blood Pressure Position [Right Arm] Supine 02 Sat by Pulse Oximetry 96 95 96 Oxygen Delivery Method Room Air 09/05/24 10:08 09/05/24 10:30 09/05/24 11:00 Temperature 98.5 F Temperature Source Oral Pulse Rate 92 H 99 H Pulse Rate [Right] Respiratory Rate 17 21 29 H Blood Pressure 169/82 H Blood Pressure [Right Arm] Blood Pressure Mean [Right Arm] Blood Pressure Source Automatic Cuff Blood Pressure Source [Right Arm] Blood Pressure Position Supine Blood Pressure Position [Right Arm] 02 Sat by Pulse Oximetry 95 97 Oxygen Delivery Method Room Air 09/05/24 11:30 09/05/24 11:47 09/05/24 12:00 Temperature Temperature Source Pulse Rate 89 Pulse Rate [Right] Respiratory Rate 28 H 27 H 25 H Blood Pressure 139/76 132/78 Blood Pressure [Right Arm] Blood Pressure Mean [Right Arm] Blood Pressure Source Blood Pressure Source [Right Arm] Blood Pressure Position Blood Pressure Position [Right Arm] 02 Sat by Pulse Oximetry Oxygen Delivery Method 09/05/24 12:54 Temperature Temperature Source Pulse Rate 85 Pulse Rate [Right] Respiratory Rate 25 H Blood Pressure 132/84 Blood Pressure [Right Arm] Blood Pressure Mean [Right Arm] Blood Pressure Source Blood Pressure Source [Right Arm] Blood Pressure Position Blood Pressure Position [Right Arm] 02 Sat by Pulse Oximetry 95 Oxygen Delivery Method Lab Data Labs: Lab Results 09/05/24 10:30: WBC 11.1 H, RBC 4.19 L, Hgb 13.2 L, Hct 38.9 L, MCV 92.8, MCH 31.5 H, MCHC 33.9, RDW 12.6, Plt Count 208, MPV 9.6, Neut % (Auto) 78.0, Lymph % (Auto) 7.9 L, [place] % (Auto) 12.5 H, Eos % (Auto) 0.7, Baso % (Auto) 0.4, Neut # (Auto) 8.6 H, Lymph # (Auto) 0.9, Gladwin # (Auto) 1.4 H, Eos # (Auto) 0.1, Baso # (Auto) 0.0, D-Dimer 0.91 H, Sodium 138, Potassium 4.8, Chloride 104, Carbon Dioxide 26, Anion Gap 12.8, BUN 15, Creatinine 0.90, Estimated Creat Clear 94, Estimated GFR 84, Est GFR ( Amer) 102, Glucose 200 H, Calcium 8.9, Total Bilirubin 1.4 H, AST 40, ALT 95 H, Alkaline Phosphatase 112, Troponin I 0.02, NT-Pro-B Natriuret Pep 2990 H, Total Protein 7.2, Albumin 4.2, Globulin 3.0, Albumin/Globulin Ratio 1.4, TSH 0.63, Thyroxine (T4) 7.0, HCV Ab DENISSE w/Rflx PCR Qn Negative, HIV Ag/Ab Combo Qual Negative 09/05/24 10:31: VBG pH 7.38, VBG pCO2 38.6, VBG pO2 36.3, VBG HCO3 22.1 L, VBG Total CO2 23.3, VBG O2 Saturation 66.5, VBG Base Excess -3.1 L, VBG Lactic Acid 2.4 H 09/05/24 10:30 09/05/24 10:30 Response Orders (Tests/Meds): ED MEDICATIONS Generic Name Dose Route Start Last Admin Trade Name Freq PRN Reason Stop Dose Admin Acetaminophen 650 mg 09/05/24 13:28 Acetaminophen 325mg Tab PO 10/05/24 13:27 Q4HP PRN Fever or Mild Pain (1-3) Enoxaparin Sodium 40 mg 09/06/24 09:00 Enoxaparin 40mg/0.4ml Syringe SUBCUT 10/06/24 08:59 DAILY [facility] Insulin Human Lispro 0 unit 09/05/24 16:30 Humalog 100 Units/Ml 10ml Vial ([facility]) SUBCUT 10/05/24 16:29 ACHS [facility] Protocol Ondansetron HCl 4 mg 09/05/24 13:28 Ondansetron 4mg/2ml Vial IV 10/05/24 13:27 Q6HP PRN Nausea Discontinued Medications Generic Name Dose Route Start Last Admin Trade Name Freq PRN Reason Stop Dose Admin Doxycycline Hyclate 100 mg 09/05/24 10:20 09/05/24 10:57 Doxycycline Hycl 100 Mg Tablet PO 09/05/24 10:21 100 mg ONCE ONE Administration Furosemide 40 mg 09/05/24 12:26 09/05/24 12:54 Furosemide 40mg/4ml Vial IV 09/05/24 12:27 40 mg ONCE ONE Administration Prednisone 40 mg 09/05/24 10:20 09/05/24 10:57 Prednisone 20mg Tab PO 09/05/24 10:21 40 mg ONCE ONE Administration ORDERS Category Date Time Status Consult to Cardiology [CONS] Routine Cons 09/05/24 12:26 Active CXR 2 view (NOT portable) [XR chest 2V] Stat Exams 09/05/24 10:19 Completed BNP [NT Pro Brain Natriuretic Pep.] Stat Lab 09/05/24 10:30 Completed Babesia microti Abs, IgM, IgG Stat Lab 09/05/24 10:52 Received CBC w/Auto Diff [Complete Blood Count Auto Diff] Stat Lab 09/05/24 10:30 Completed CMP [Comprehensive Metabolic Panel] Stat Lab 09/05/24 10:30 Completed D-Dimer Stat Lab 09/05/24 10:30 Completed Ehrilichia Detection PCR Routine Lab 09/05/24 10:52 Received Francisella tularensis Abs. Stat Lab 09/05/24 10:52 Received HIV Combo Stat Lab 09/05/24 10:30 Completed Hepatitis C Ab Qual. W/ RFX Stat Lab 09/05/24 10:30 Completed Lyme Ab, Modified 2-Tier Stat Lab 09/05/24 10:52 Received Lyme B. burgdorferi PCR Blood Stat Lab 09/05/24 10:52 Received T4 (Thyroxine) Stat Lab 09/05/24 10:30 Completed TSH [Thyroid Stimulating Hormone] Stat Lab 09/05/24 10:30 Completed Trop I [Troponin I] Stat Lab 09/05/24 10:30 Completed Troponin I Q3H Lab 09/05/24 13:30 Ordered Troponin I Q3H Lab 09/05/24 16:30 Ordered Blood Culture Stat Micro 09/05/24 10:32 Received VBG [Venous Blood Gas] Stat RT 09/05/24 10:31 Completed CA echo doppler complete Routine Y 09/05/24 12:27 Ordered ECG Data Tracing #1: Attestation: I reviewed this ECG and interpreted as documented below: ECG Narrative: Tachycardia with a rate of [address] changes concerning for STEMI. Difficult to ascertain underlying rhythm given some motion artifact. Unclear if this could be an atrial tachycardia versus sinus tachycardia with premature complexes. Will plan to repeat EKG ECG initial impression date: 09/05/24 ECG initial impression time: 09:58 Tracing #2: Attestation: I reviewed this ECG and interpreted as documented below: ECG Narrative: Atrial fibrillation with a rate of [address] changes concerning for STEMI. ECG initial impression date: 09/05/24 ECG initial impression time: 10:49 MDM Narrative Medical Decision Narrative: In summary, this patient is a 69-year-old male presenting to the Emergency Department for evaluation of 2 to 3 days of shortness of breath. Of note, he also has had pruritic disseminated rash for 6 weeks that initially improved with steroids but has now been worsening again.. Differential diagnoses considered include but are not limited to ACS, PE, dysrhythmia, CHF, pneumonia, eczematous rash, psoriatic rash, allergic reaction, anaphylaxis, tickborne illness, pityriasis rosea. Ruling out the most morbid conditions drove assessment. It should be noted patient's history includes hypertension, hyperlipidemia, type 2 diabetes, CAD which may or may not be at goal therapy. This complicates all aspects of care by increasing patient's risk for morbidity. I reviewed patient's past medical records and noted prior PCP evaluations for maintenance of health. On exam, the patient has slight increased work of breathing with tachypnea and accessory muscle use. he is mildly tachycardic on cardiac telemetry but otherwise vitals are reassuring with normotension, normal O2 saturation. He has a disseminated erythematous macular rash that is blanching with no bullae, no sloughing, no mucosal involvement, and a negative Nikolsky sign. I did find 2 embedded ticks on the posterior right lower extremity that were not extremely large or safely engorged, so I do not feel that they likely been there for weeks. He was not aware of these and he does do a lot of work outside, so it is possible he could have had another tick bite at another time and just was not aware of it, as he was not aware of these today. I did not find any other ticks on head to toe skin exam. Workup included lab evaluation to evaluate for cardiac etiologies, infectious etiologies, and tickborne diseases as well as chest x-ray and EKG. Cannot use PERC criteria to exclude PE given age and tachycardia, so D-dimer was obtained. I do not feel this is likely anaphylaxis, as he is not hypotensive and has no GI symptoms. He also has no wheezing or stridor in the setting of the shortness of breath. His lungs are very clear. The rash also has not been on the same timeline as the shortness of breath. It is possible the rash could be eczematous or psoriatic versus something viral like pityriasis rosea. It did improve with a short course of steroids but came back right away as soon as the steroids were finished. I also have to consider that he could have had some other tick bite at some point and it could be tickborne disease, though it does not look classic for this. After shared decision-making with the patient, will elect to administer a dose of prednisone as well as doxycycline. Pending the remainder of his workup today, my plan will tentatively be to send him home with a prolonged taper of steroid and dermatology follow-up for the rash as well as doxycycline to treat possible tickborne disease. Initial EKG demonstrates tachycardia, unclear if this is sinus tach with occasional PACs versus atrial flutter/fibrillation given some motion artifact. Will plan to repeat EKG. I independently interpreted chest x-ray prior to the radiologist read and noted streak opacifications in the bases that could be pulmonary edema, especially given that he is not had fevers, cough, or acute infectious symptoms. Please see their read for final interpretation. Labs were obtained that demonstrated very mild leukocytosis at 11, mild anemia with a hemoglobin of 13.2. D-dimer is negative per years criteria. BNP is elevated at 2990 with no prior for comparison. Initial troponin is negative.. Multiple repeat EKGs were obtained that demonstrated atrial fibrillation, which is new onset. Patient is not anticoagulated and has been having symptoms for several days, so I do not feel that cardioversion is safe without echo to rule out cardiac thrombus. Given that he has elevated BNP, shortness of breath, increased work of breathing in the setting of new onset A-fib, I feel he would benefit from admission for cardiac evaluation and formal echo. I had an interactive discussion with the hospitalist who admitted the patient in stable condition. I considered rate control, but the patient is already rate controlled with a rate in the 80s to 90s after taking his home metoprolol
--- NOTE | 2024-09-05 10:31 | PC.NURSE ---
I notified Allison in resp that a green top has been sent up for a VBG
[2024-09-05 10:45] LABS: VBG Base Excess -3.1 mmol/L (-2.4-2.3); VBG HCO3 22.1 mmol/L (23-30); VBG Oxygen Saturation 66.5 % (50-70); VBG PCO2 38.6 mmol/L (35-51); VBG PH 7.38 mmol/L (7.31-7.41); VBG PO2 36.3 mmol/L (28-40); VBG Total CO2 23.3 mmol/L (23-27)
[2024-09-05 10:46] LABS: Lactate Venous 2.4 mmol/L (0.4-2.0)
[2024-09-05 10:46] LABS: Basophils % 0.4 % (0.1-2.0); Eosinophils # 0.1 Kmm3 (0.0-0.4); Eosinophils % 0.7 % (0.1-12.0); Hematocrit 38.9 % (42.0-52.0); Hemoglobin 13.2 g/dL (14.1-18.0); Immature Granulocytes # 0.05 10^3uL; Immature Granulocytes % 0.5 %; Lymphocytes # 0.9 K/mm3 (0.7-4.5); Lymphocytes % 7.9 % (10-50); Mean Corpuscular HGB Conc 33.9 g/dL (31.8-35.4); Mean Corpuscular Hemoglobin 31.5 pg (27.0-31.2); Mean Corpuscular Volume 92.8 fl (80-94); Mean Platelet Volume 9.6 fl (7.4-10.4); Monocytes # 1.4 K/mm3 (0.1-1.0); Monocytes % 12.5 % (1.7-9.3); Neutrophils # 8.6 K/mm3 (1.8-7.8); Nucleated Red Blood Cells # 0 10^3/uL; Nucleated Red Blood Cells % 0 %; Platelet Count 208 K/mm3 (142-424); Red Blood Count 4.19 M/mm3 (4.60-6.20); Red Cell Distribution Width 12.6 % (11.5-17.5); Red Cell Distribution Width-SD 42.6 fL; White Blood Count 11.1 K/mm3 (4.8-10.8)
--- NOTE | 2024-09-05 10:47 | ECG_ITS ---
APPROVED REPORT Exam: Resting ECG HR:88 bpm ECG Measurements Heart Rate 88 AXES QRSd 94 QRS 44 QT 363 T 173 QTc 409 Conclusion ATRIAL FIBRILLATION No STEMI Electronically signed by : ALEX CHRISTOPHER, 09/05/2024 15:30:00
[2024-09-05 10:56] LABS: Alanine Aminotransferase 95 U/L (12-78); Albumin Level 4.2 g/dl (3.5-5.0); Albumin/Globulin Ratio 1.4 (1.1-1.8); Alkaline Phosphatase 112 U/L (38-126); Anion Gap 12.8 mEq/L (5-15); Aspartate Amino Transferase 40 U/L (17-59); Bilirubin,Total 1.4 mg/dl (0.2-1.3); Blood Urea Nitrogen 15 mg/dl (9-20); Calcium 8.9 mg/dl (8.4-10.2); Carbon Dioxide 26 mmol/L (22.0-30.0); Chloride 104 mmol/L (98-107); Creatinine Clearance Estimated 94 mL/min (50-200); Estimated Glomerular Filt Rate 84 ml/min (>60); GFR (African American) 102 ML/MIN (>60); Glucose 200 mg/dl (74-100); Potassium 4.8 mmoL/L (3.5-5.1); Sodium 138 mmol/L (136-145); Total Protein,Serum 7.2 g/dl (6.3-8.2)
[2024-09-05] MEDS: predniSONE 20MG TAB 40 MG PO (10:57)
[2024-09-05] MEDS: DOXYCYCLINE HYCL 100 MG TABLET PO ×2 (10:57→20:34)
[2024-09-05 11:03] LABS: Lyme Ab IgM CIA ND; Lyme IgG CIA ND
[2024-09-05 11:09] LABS: NT Pro Brain Natriuretic Pep. 2990 pg/mL (0-125); Troponin I 0.02 ng/ml (0.00-0.034)
[2024-09-05 11:27] LABS: Thyroid Stimulating Hormone 0.63 uIU/mL (0.465-4.68)
[2024-09-05 12:03] LABS: HIV Combo NEGATIVE (Negative)
--- NOTE | 2024-09-05 12:10 | ECG_ITS ---
APPROVED REPORT Exam: Resting ECG HR:78 bpm ECG Measurements Heart Rate 78 AXES QRSd 94 QRS 37 QT 384 T 175 QTc 417 Conclusion ATRIAL FIBRILLATION No STEMI Electronically signed by : ALEX CHRISTOPHER, 09/05/2024 15:29:30
[2024-09-05 12:11] LABS: Hepatitis C Ab Qual. W/ RFX NEGATIVE (Negative)
[2024-09-05 12:16] LABS: D-Dimer 0.91 ug/mL (0.0-0.5)
--- NOTE | 2024-09-05 12:43 | PC.NURSE ---
is speaking with the hospitalist about possible admission.
--- NOTE | 2024-09-05 12:49 | PC.NURSE ---
house made aware of bed admission
[2024-09-05] MEDS: FUROSEMIDE 40MG/4ML VIAL 40 MG IV ×2 (12:54→16:59)
--- NOTE | 2024-09-05 13:01 | PC.NURSE ---
Report called to Elena DANG
--- NOTE | 2024-09-05 13:29 | PC.NURSE ---
arrived by w/c from ED
--- NOTE | 2024-09-05 13:29 | HMH.PHAINT1 ---
Pharmacy Intervention Comments: MEDICATION RECONCILIATION COMPLETE USING EXTERNAL PHARMACY FILL HISTORY AND RECENT MD OFFICE VISIT NOTE.
[2024-09-05 14:46] LABS: Reflex Lactic Add Lactic Reflex
[2024-09-05 14:59] LABS: Troponin I 0.02 ng/ml (0.00-0.034)
[2024-09-05 16:35] LABS: Lactic Acid Follow Up (RFLX 1) 1.3 mmol/L (0.7-2.1)
--- NOTE | 2024-09-05 16:44 | EXP.HP ---
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 He states this symptom began about a week ago and has gotten worse, without productive cough, fever/chills, chest pain. He is on room air but states he has a hard time taking deep breaths, and is getting winded with exertion. He also states a rash broke out about 6 weeks ago throughout his body but predominantly his torso and chest. 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 However, 2 ticks were found in the ED. He states he was recently given a 10-day course of prednisone which helped the rash, course finished about a week and a half ago. Workup in the ED significant for BNP 2990, CXR with pulmonary edema, WBC 11.1. Also found to be in a flutter but rate controlled. Case discussed with ED provider and decision was made to admit patient for dyspnea exertion, new onset heart failure, A-fib. [facility] Disclaimer: The information contained in this section may have been updated after the patient was seen, as this information can be updated by other users. Medical History Hyperlipidemia Hypertension Prostate cancer Surgical History History of prostate surgery Hx of heart surgery Social History Smoking Status: Never smoker alcohol intake: current alcohol intake frequency: 3 or more drinks per day current occupational status: retired Travel in the last 8 weeks?: None Have you lived/traveled outside US in past 30 days?: No Contact w/someone who lives/traveled outside US past 30 days?: No Exposure to someone with infectious disease in past 14 days?: No Do you have a fever (greater than 100.4 F or 38 C)?: No Have you tested positive for COVID-19?: No Exposed to someone with COVID-19 in past 14 days?: No Do you have a sore throat?: No Do you have a cough?: No Do you have any weakness?: No Do you have any diarrhea?: No Are you experiencing any unusual bleeding?: No Do you have any muscle aches/pain?: No Do you have any abdominal pain?: No Are you experiencing loss of taste or smell?: No Other Medical History Have you received the Flu Vaccine for this season: No Have you received the Pneumonia Vaccine: No Meds Home Medications and Allergies Home Medications ?Medication ?Instructions ?Recorded ?Confirmed ?Type apple cider vinegar 300 mg tablet 300 mg PO DAILY 03/03/23 09/05/24 History aspirin 81 mg chewable tablet 81 mg PO DAILY 03/03/23 09/05/24 History atorvastatin 40 mg tablet 40 mg PO DAILY 03/03/23 09/05/24 History coenzyme Q10 200 mg capsule 200 mg PO DAILY 03/03/23 09/05/24 History cholecalciferol (vitamin D3) 25 25 mcg PO DAILY 07/14/23 09/05/24 History mcg (1,000 unit) capsule metoprolol succinate 50 mg 50 mg PO DAILY 01/12/24 09/05/24 History tablet,extended release 24 hr losartan 50 mg tablet 50 mg PO DAILY #90 tabs 01/13/24 09/05/24 Rx omega 7-cvu-uik-fish oil 60 mg-90 1 cap PO DAILY 04/02/24 09/05/24 History mg-500 mg capsule (Fish Oil) amlodipine 10 mg tablet 10 mg PO DAILY #90 tabs 07/09/24 09/05/24 Rx cetirizine 10 mg tablet 10 mg PO DAILY 09/05/24 09/05/24 History famotidine 20 mg tablet 20 mg PO BID 09/05/24 09/05/24 History hydroxyzine HCl 25 mg tablet 25 mg PO Q8H 09/05/24 09/05/24 History New Prescriptions to Start Prescriptions: Allergies Allergy/AdvReac Type Severity Reaction Status Date / Time No Known Allergies Allergy Verified 07/09/24 08:29 Exam Data for Last 24 hours Vital signs and Labs for Last 24 Hours: Temp Pulse Resp BP Pulse Ox O2 Del Method 99.4 F 80 18 160/86 H 95 Room Air 09/05/24 13:50 09/05/24 13:50 09/05/24 13:50 09/05/24 13:50 09/05/24 13:50 09/05/24 15:00 Laboratory Results - last 24 hr 09/05/24 10:30: WBC 11.1 H, RBC 4.19 L, Hgb 13.2 L, Hct 38.9 L, MCV 92.8, MCH 31.5 H, MCHC 33.9, RDW 12.6, Plt Count 208, MPV 9.6, Neut % (Auto) 78.0, Lymph % (Auto) 7.9 L, Leon % (Auto) 12.5 H, Eos % (Auto) 0.7, Baso % (Auto) 0.4, Neut # (Auto) 8.6 H, Lymph # (Auto) 0.9, Leon # (Auto) 1.4 H, Eos # (Auto) 0.1, Baso # (Auto) 0.0, D-Dimer 0.91 H, Sodium 138, Potassium 4.8, Chloride 104, Carbon Dioxide 26, Anion Gap 12.8, BUN 15, Creatinine 0.90, Estimated Creat Clear 94, Estimated GFR 84, Est GFR ( Amer) 102, Glucose 200 H, Calcium 8.9, Total Bilirubin 1.4 H, AST 40, ALT 95 H, Alkaline Phosphatase 112, Troponin I 0.02, NT-Pro-B Natriuret Pep 2990 H, Total Protein 7.2, Albumin 4.2, Globulin 3.0, Albumin/Globulin Ratio 1.4, TSH 0.63, Thyroxine (T4) 7.0, HCV Ab DENISSE w/Rflx PCR Qn Negative, HIV Ag/Ab Combo Qual Negative 09/05/24 10:31: VBG pH 7.38, VBG pCO2 38.6, VBG pO2 36.3, VBG HCO3 22.1 L, VBG Total CO2 23.3, VBG O2 Saturation 66.5, VBG Base Excess -3.1 L, VBG Lactic Acid 2.4 H 09/05/24 14:15: Troponin I 0.02 09/05/24 16:15: Lactate 1.3 I & O for Last 24 hours: Intake & Output 09/02/24 09/03/24 09/04/24 09/05/24 23:59 23:59 23:59 23:59 Weight 91.399 kg Constitutional Constitutional: no acute distress *Routine HEENT Exam Head: Present normocephalic Eye: Present EOMI and PERRL ENT: Present mucous membranes moist *Routine Neck Exam Neck: Present supple; Absent lymphadenopathy *Routine Respiratory Exam Respiratory: Present CTA bilaterally *Routine Cardiovascular Exam Cardiovascular: Present RRR *Routine Abdominal Exam Abdominal: Present soft and normoactive bowel sounds; Absent tenderness *Routine Rectal Exam Rectal:: deferred *Routine Genitalia Exam Genitalia:: deferred *Routine Extremities Exam Extremities: Absent cyanosis, clubbing or edema *Routine Skin Exam Skin: Present warm and rash *Routine Neurological Exam Neurological: Present alert and oriented X3 Assessment and Plan *Assessment and plan (1) Acute heart failure: Status: Acute Category: Medical Code(s): I50.9 - Heart failure, unspecified (2) New onset a-fib: Status: Acute Category: Medical Code(s): I48.91 - Unspecified atrial fibrillation (3) Embedded tick of lower leg: Status: Acute Category: Medical Code(s): S80.859A - Superficial foreign body, unspecified lower leg, initial encounter; Z18.39 - Other retained organic fragments (4) Rash: Status: Acute Category: Medical Code(s): R21 - Rash and other nonspecific skin eruption Plan 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 He states this symptom began about a week ago and has gotten worse, without productive cough, fever/chills, chest pain. He is on room air but states he has a hard time taking deep breaths, and is getting winded with exertion. He also states a rash broke out about 6 weeks ago throughout his body but predominantly his torso and chest. 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 However, 2 ticks were found in the ED. He states he was recently given a 10-day course of prednisone which helped the rash, course finished about a week and a half ago. Workup in the ED significant for BNP 2990, CXR with pulmonary edema, WBC 11.1. Also found to be in a flutter but rate controlled. Case discussed with ED provider and decision was made to admit patient for dyspnea exertion, new onset heart failure, A-fib. #New onset heart failure, unknown type #A-fib versus flutter #Pulmonary edema ? Presented with progressive shortness of breath, pulmonary edema. BNP 2990. EKG showing A-fib versus flutter. ? Patient is doing better after receiving IV Lasix 40 mg, but continues to have dyspnea on exertion. On room air. ? Patient does take amlodipine, contributing to peripheral edema. ? Continue IV Lasix 40 mg twice daily, spironolactone 25 mg. Follow-up urine output, renal function, electrolytes. ? Started therapeutic Lovenox pending cardiology evaluation, [id number] rater than 2. ? Follow-up ECHO. ? Cardiology consulted, pending further recommendations. ? Continuous cardiac telemetry. #Suspected tickborne illness/rash ? Diffuse macular, plaque-like rash that apparently improved with prednisone outpatient. 2 ticks found in the ED. Prednisone, doxycycline given in the ED. ? Continue doxycycline 100 mg twice daily. Will hold further prednisone for now. Follow-up on response with doxycycline. #History of CABG #Hypertension ? Continue aspirin, statin, metoprolol succinate. ? Continue home losartan. Hold home amlodipine due to peripheral edema. #Type 2 diabetes ?Hemoglobin A1c 6.4 in June 2024. ? LDSSI, ACHS glucose checks. Full code DVT prophylaxis: Therapeutic Lovenox
[2024-09-05 16:49] LABS: Troponin I 0.01 ng/ml (0.00-0.034)
[2024-09-05] MEDS: SPIRONOLACTONE 25MG TABLET 25 MG PO (16:59)
[2024-09-05] MEDS: humaLOG 100 UNITS/ML 10ML VIAL (SSI) SUBCUT ×2 (16:59→20:37)
--- NOTE | 2024-09-05 18:23 | PC.NURSE ---
pt resting supine in bed with significant other at bedside. new onset of afib. cards consult in place. pt given diuretics per may. pt educated on need to measure intake and output. hat placed in toilet (pt refused urinal). pt voiced understanding of needs to record output. fsbs at 1630 was 395. treated with SSI per protocol. pt asymptomatic. no complaints of pain. no needs at this time. call light within reach.
[2024-09-05 20:06] LABS: POC Glucose,Bedside 429 (70-110)
[2024-09-05] MEDS: FAMOTIDINE 20MG TABLET 20 MG PO (20:37)
[2024-09-05] MEDS: IRBESARTAN 75MG TABLET 75 MG PO (22:14)
[2024-09-05] MEDS: ASPIRIN EC 81MG TABLET 81 MG PO (22:14)
[2024-09-05] MEDS: METOPROLOL SUCCINATE XL 50MG TABLET 50 MG PO (22:14)
[2024-09-05] MEDS: ATORVASTATIN 40MG TABLET 40 MG PO (22:14)
[2024-09-05] MEDS: RIVAROXABAN 10MG TABLET 20 MG PO (22:14)
--- OUTSIDE RECORDS SUMMARY | 2024-09-05 22:17 | XMS_ITS | Encounter Summary ---
Author Organization Healthcare Address [address] [place] [address] Care Team Providers Care Animal Laboratory Helper Name Role Phone Pilar Alexander APRN Primary Care Provider [phone] Encounter Details Date Type Department Care Team (Late st Contact Info) Description 08/08/2023 Lab Requisition [facility] [address] [place] [address] Yair Akhtar MD [address] [facility] [address] [place] [address] Melena Social History Tobacco Use Types Packs/Day [...] EDT) Case Report [facility] Path[facility] Consult Case: [id number] Authorizing Provider: Yair Akhtar MD Collected: 08/08/2023 1308 Ordering Location: [facility] Received: 08/08/2023 1308 Pathologist: Ora Alegria MD Specimen: Colon, [id number] 10:24 AM EDT [facility] Final Diagnosis LARGE INTESTINE, MASS AT 20 CM, BIOPSY (OUTSIDE CASE [id number]; COLLECTED ON 07/30/2023): - MOST CONSISTENT WITH ADENOCARCINOMA (SEE COMMENT). 10:24 AM EDT [facility] at 1024 EDT Comment Radiology study at outside hospital showed a 2.7 x 2.6 cm mass in the sigmoid colon (at 20 cm area). Therefore, the overall findings are most consistent with adenocarcinoma and segmental sigmoid colon resection is recommended 10:24 AM EDT [facility] Clinical Information K92.1 - Melena [ICD-10-CM] 10:24 AM EDT [facility] Gross Description A. [id number] Received along with a corresponding pathology report from [facility] is 1 slide labeled outside case: [id number] collected on 07/30/2023. 10:24 AM EDT [facility] Intradepartmental Consultation with Agreement Dr. Sloan has seen the case and concurs with the diagnosis. 10:24 AM EDT [facility] Note: A resident was involved in the service. I attest I examined the relevant preparations for the specimens and confirmed the diagnosis or interpretation. 10:24 AM EDT [facility] Tissue Colon structure / Unknown 08/08/2023 1:08 PM EDT 08/08/2023 1:08 PM EDT us Yair Akhtar MD LAB PATHOLOGY ORDERABLES Final Result [facility] [address] [place] [address] documented in this encounter Visit Diagnoses Diagnosis Melena Blood in stool documented in this encounter Care Teams Animal Laboratory Helper Relationship Specialty Start Date End Date Pilar Alexander APRN [address] [place] [address] PCP - General 03/31/23 documented as of this encounter
--- OUTSIDE RECORDS SUMMARY | 2024-09-05 22:17 | XMS_ITS | Encounter Summary ---
Author Organization [employer] [facility] [employer] Address [address] [place] [address] Care Team Providers Care Convertible Power Shovel Operator Name Role Phone BenjaminPilar SUPERVISOR ROVING DEPARTMENT Primary Care Provider Mary Grace Camp MD Unavailable [phone] Encounter Details Date Type Department Care Team (Late st Contact Info) Description 08/27/2019 Transcribed Document [facility] Cardiology [address] [place] [address] [address] [place] [address] Mary Grace Camp MD [address] [facility] [address] [place] [address] Social History Tobacco Use Types [...] 1. Normal study. 2. Ejection fraction 61%. /[id number] Mary Grace Camp MD NMF/AQ / NMF / MODL /[id number] documented in this encounter Plan of Treatment Not on file documented as of this encounter Visit Diagnoses Not on filedocumented in this encounter Care Teams Convertible Power Shovel Operator Relationship Specialty Start Date End Date Pilar Alexander, SUPERVISOR ROVING DEPARTMENT [address] [id number] PCP - General Nurse Practitioner 08/01/23 Mary Grace Camp MD [address] [facility] [place] [address] Interventional Cardiology 08/01/23 documented as of this encounter
--- OUTSIDE RECORDS SUMMARY | 2024-09-05 22:17 | XMS_ITS | Encounter Summary ---
Author Organization [employer] Address [address] [facility] [place] [address] Care Team Providers Care Organ Tuner Name Role Phone Benjamin Pilar YING Primary Care Provider [phone] Mary Grace Camp MD Unavailable [phone] Encounter Details Date Type Department Care Team (Late st Contact Info) Description 08/08/2020 Transcribed Document [facility] Cardiology [address] [place] [address] [address] [place] [address] Mary Grace Camp MD [address] [facility] [address] [place] [address] Social History Tobacco Use Types [...] 1. Normal study. 2. Ejection fraction 70%. /[id number] MD AMA Leonard/AQ / AMA / MODL /[id number] documented in this encounter Plan of Treatment Not on file documented as of this encounter Visit Diagnoses Not on filedocumented in this encounter Care Teams Organ Tuner Relationship Specialty Start Date End Date Benjamin Pilar, CAN MARKER [address] [place] [address] PCP - General Nurse Practitioner 08/01/23 Mary Grace Camp MD [address] [place] [address] [place] [address] Interventional Cardiology 08/01/23 documented as of this encounter
--- OUTSIDE RECORDS SUMMARY | 2024-09-05 22:17 | XMS_ITS | Encounter Summary ---
Author Organization [employer] Address [address] [place] [address] Care Team Providers Care Scaffold Builder Name Role Phone Benjamin Pilar YING Primary Care Provider [phone] Mary Grace Camp MD Unavailable [phone] Encounter Details Date Type Department Care Team (Late st Contact Info) Description 07/22/2018 Transcribed Document [facility] Cardiology [address] [facility] [address] [place] [address] Mary Grace Camp MD [address] [facility] [address] [place] [address] Social History Tobacco Use Types [...] on filedocumented in this encounter Care Teams Scaffold Builder Relationship Specialty Start Date End Date AlexanderLesleye, YING [address] [address] PCP - General Nurse Practitioner 08/01/23 Mary Grace Camp MD [address] [facility] [place] [place] [address] Interventional Cardiology 08/01/23 documented as of this encounter
--- OUTSIDE RECORDS SUMMARY | 2024-09-05 22:17 | XMS_ITS | Referral Summary ---
Author Organization [employer] Address [address] [place] [address] Care Team Providers Care Inventory Associate Name Role Phone Pilar Alexander APRN Primary Care Provider Mary Grace Camp MD Unavailable [phone] Allergies No known active allergies Medications [...] Date Todd rded Speak language other than Welsh at home Not on file 07/31/2023 Want [...] SUPP MEDICARE PART A B Care Teams Inventory Associate Relationship Specialty Start Date End Date Pilar Alexander, YING [address] [place] [address] PCP - General Nurse Practitioner 08/01/23 Mary Grace Camp MD [address] [place] [address] Interventional Cardiology 08/01/23
--- OUTSIDE RECORDS SUMMARY | 2024-09-05 22:17 | XMS_ITS | Encounter Summary ---
Author Organization Healthcare Address [address] [place] [address] Care Team Providers Care Presidential Support Specialist Name Role Phone Pilar Alexander Blanca HE Primary Care Provider [phone] Encounter Details Date Type Department Care Team (Late st Contact Info) Description 08/12/2024 Orders Only External Location [address] [place] [address] Yair Akhtar MD [address] [facility] [address] [place] [address] Social History Tobacco Use Types Packs/Day Years [...] place to sleep or slept in a detention (including now)? No 08/29/2023 CAGE ASSESSMENT Answer [...] drink first t renetta in the morning (EYE-CARPET TILE LAYER) to steady your nerves or to get [...] documented as of this encounter Care Teams Presidential Support Specialist Relationship Specialty Start Date End Date Pilar Alexander APRN [address] [place] [address] PCP - General 03/31/23 documented as of this encounter
--- OUTSIDE RECORDS SUMMARY | 2024-09-05 22:17 | XMS_ITS | Encounter Summary ---
Author Organization Healthcare Address [address] [place] [address] Care Team Providers Care Nurses Educator Name Role Phone Pilar Alexander Blanca HE Primary Care Provider [phone] Encounter Details Date Type Department Care Team (Late st Contact Info) Description 08/12/2024 Orders Only External Location [address] [place] [address] Yair Akhtar MD [address] [facility] [address] [place] [address] Social History Tobacco Use Types Packs/Day Years [...] place to sleep or slept in a usp (including now)? No 08/29/2023 CAGE ASSESSMENT Answer [...] drink first t renetta in the morning (EYE-PROFILING MACHINE SET UP OPERATOR TOOL) to steady your nerves or to get [...] documented as of this encounter Care Teams Nurses Educator Relationship Specialty Start Date End Date Pilar Alexander APRN [address] [place] [address] PCP - General 03/31/23 documented as of this encounter
--- OUTSIDE RECORDS SUMMARY | 2024-09-05 22:17 | XMS_ITS | Clinical Summary ---
Author Organization [employer] [facility] [employer] Address [address] [place] [address] Care Team Providers Care Manager Of Digital Name Role Phone Pilar Alexander APRN Primary Care Provider Mary Grace Camp MD Unavailable [phone] Allergies No known active allergies Medications [...] Date Todd rded Speak language other than Malaysian at home Not on file 07/31/2023 Want [...] 07/3108/01/2023 Influenza Vaccine (Season Ended) 2024 Insurance [facility] MEDICARE PART A B Care Teams Manager Of Digital Relationship Specialty Start Date End Date Pilar Alexander, PHOTOGRAPHER LITHOGRAPHIC [address] [place] [address] PCP - General Nurse Practitioner 08/01/23 Mar yGrace Camp MD [address] [facility] [place] [address] Interventional Cardiology 08/01/23
--- OUTSIDE RECORDS SUMMARY | 2024-09-05 22:17 | XMS_ITS | Encounter Summary ---
Author Organization [facility] Address [address] [place] [address] Care Team Providers Care Patient Assistant Name Role Phone Pilar Alexander APRN Primary Care Provider [phone] Reason for Referral * Consultation (Routine) - Closed Specialty Diagnoses / Procedures Referred By Alejandra jaquez Referred To Contact Surgical Oncology / Hematology and Oncology Diagnoses Colonic mass Nikko Perales MD [address] [facility] [place] [address] Phone: tel: fax: Referral ID Status Reason Start Date Expiration Date V isits Requested Visits Authorized [id number] Closed Specialty Services Required 08/04/2023 02/02/2025 1 1 Encounter Details Date Type Department Care Team (Late st Contact Info) Description 08/04/2023 Community Orders Community Practice [address] [place] [address] Nikko Perlaes MD [address] [facility] [place], [place] [id number] Colonic mass (Primary Dx) Social History Tobacco [...] Primary documented in this encounter Care Teams Patient Assistant Relationship Specialty Start Date End Date Pilar Alexander APRN [address] [id number] PCP - General 03/31/23 documented as of this encounter
--- OUTSIDE RECORDS SUMMARY | 2024-09-05 22:17 | XMS_ITS | Clinical Summary ---
Author Organization Healthcare Address [address] [place] [address] Care Team Providers Care In Flight Crew Member Name Role Phone Pilar Alexander YING Primary Care Provider [phone] Allergies No known active allergies Medications atorvastatin [...] Description 08/12/2024 Orders Only External Location [address] [place] [address] Yair Akhtar MD 08/12/2024 Orders Only External Location [address] [place] [address] Yair Akhtar MD from Last 3 Months [...] place to sleep or slept in a senior living (including now)? No 08/29/2023 CAGE ASSESSMENT Answer [...] drink first t renetta in the morning (EYE-DIGITAL MANAGER) to steady your nerves or to get rid of a hangover? 0 08/28/2023 CAGE Questionnaire Score 0 024 Utilities Answer Date Recorded In the past 12 months has e etrigg, gas, oil, or water [employer] threatened to shut off services in your [...] Wellness (AWV) 1955 [facility]-Infant/Child/Adol SDOH Screenings 1955 [id number] Vaccine (#1) 1962 [facility]- SDOH Screenings 1975 [...] Most Recently Relevant to Health Maintenance Insurance [facility] [place] [id number] [facility] * Full Code (Latest Code Status on File) Date Activated Date Inactivated Comments 08/28/2023 5:05 PM 08/31/2023 7:45 PM Question Answer Comments Patient has decision-making capacity? Yes Care Teams In Flight Crew Member Relationship Specialty Start Date End Date Pilar Alexander APRN [address] [place] [address] PCP - General 03/31/23
[2024-09-06] VITALS: PULSE 75
[2024-09-06 04:00] VITALS: BP 114/80; PULSE 60; PULSE 90; RESP 16; TEMP 36.6; O2SAT 96; BMI 29.1
--- NOTE | 2024-09-06 04:20 | PC.NURSE ---
Pt A & O x4 & on RA. Pt has been A-fib on Telemetry. Pt was slightly hypertensive in the beginning of the shift, provider notified and ordered his normal BP medications as a one time now dose. Pt's BP has since been controlled. Pt was also started on Xarelto. Pt does have a known rash on the front and back of his torso, as well as behind the knee on the right leg. Pt is resting in bed with call light within reach. Plan of care ongoing.
--- NOTE | 2024-09-06 04:39 | PC.NURSE ---
Pt's blood glucose was elevated to 429 around 2100, pt was given 12 units of insulin.
[2024-09-06 05:57] LABS: POC Glucose,Bedside 267 (70-110)
[2024-09-06] MEDS: humaLOG 100 UNITS/ML 10ML VIAL (SSI) SUBCUT (06:03)
[2024-09-06 06:57] LABS: Basophils % 0.3 % (0.1-2.0); Eosinophils # 0.1 Kmm3 (0.0-0.4); Eosinophils % 0.5 % (0.1-12.0); Hematocrit 38.2 % (42.0-52.0); Immature Granulocytes # 0.03 10^3uL; Immature Granulocytes % 0.3 %; Lymphocytes # 1.2 K/mm3 (0.7-4.5); Lymphocytes % 13.2 % (10-50); Mean Corpuscular Hemoglobin 31.6 pg (27.0-31.2); Mean Corpuscular Volume 92.7 fl (80-94); Monocytes # 0.8 K/mm3 (0.1-1.0); Monocytes % 8.2 % (1.7-9.3); Neutrophils # 7.2 K/mm3 (1.8-7.8); Neutrophils % 77.5 % (37.0-80.0); Nucleated Red Blood Cells # 0 10^3/uL; Nucleated Red Blood Cells % 0 %; Platelet Count 197 K/mm3 (142-424); Red Blood Count 4.12 M/mm3 (4.60-6.20); Red Cell Distribution Width 12.4 % (11.5-17.5); Red Cell Distribution Width-SD 41.7 fL; White Blood Count 9.3 K/mm3 (4.8-10.8)
[2024-09-06 07:16] LABS: Albumin Level 4.2 g/dl (3.5-5.0); Chloride 105 mmol/L (98-107)
[2024-09-06 07:17] LABS: Potassium 4.2 mmoL/L (3.5-5.1); Sodium 137 mmol/L (136-145)
[2024-09-06 07:19] LABS: Alanine Aminotransferase 78 U/L (12-78); Alkaline Phosphatase 126 U/L (38-126); Anion Gap 10.2 mEq/L (5-15); Aspartate Amino Transferase 40 U/L (17-59); Bilirubin,Total 0.8 mg/dl (0.2-1.3); Blood Urea Nitrogen 26 mg/dl (9-20); Carbon Dioxide 26 mmol/L (22.0-30.0); Creatinine Clearance Estimated 91 mL/min (50-200); Estimated Glomerular Filt Rate 75 ml/min (>60); GFR (African American) 90 ML/MIN (>60)
[2024-09-06 07:20] LABS: Albumin/Globulin Ratio 1.4 (1.1-1.8); Calcium 9.2 mg/dl (8.4-10.2); Glucose 237 mg/dl (74-100); Magnesium 2.3 mg/dl (1.6-2.3); Total Protein,Serum 7.2 g/dl (6.3-8.2)
[2024-09-06 08:00] VITALS: BP 112/65; PULSE 60; PULSE 83; RESP 16; TEMP 36.6; O2SAT 95
--- NOTE | 2024-09-06 08:48 | CT_ITS ---
FINAL REPORT TECHNIQUE: The patient was injected with IV contrast. Axial images were obtained through the chest in a PE protocol. 3-D reconstruction images were also performed. Individualized dose reduction techniques using automated exposure control or adjustment of the MA and/or KV according to patient's size were employed. CLINICAL HISTORY: NATHAN, elevated d-dimer COMPARISON: None FINDINGS: Multiple median sternotomy wires are noted. Mediastinal vasculature is adequately opacified. No pulmonary artery filling defects are identified to suggest PE. There is no aortic dissection. There is no axillary adenopathy. There is no hilar or mediastinal adenopathy. The heart size is normal. There is no pericardial effusion. Small to moderate bilateral pleural effusions are noted with overlying atelectasis. No suspicious infiltrate or nodule is identified. Limited images of the upper abdomen demonstrate calcified granulomas within the spleen. IMPRESSION: No pulmonary embolus or dissection. Bilateral pleural effusions with overlying atelectasis. Reviewed, Interpreted and Dictated by Yair Hummel MD Transcribed by Janessa Cagle Authenticated and . [facility]
[2024-09-06] MEDS: IOPAMIDOL-370 (76%);100ML BOTTLE 85 ML IV (09:23)
[2024-09-06] MEDS: 0.9 % SODIUM CHLORIDE 50 ML VIAL IV (09:23)
[2024-09-06] MEDS: SODIUM CHLORIDE 0.9% 10ML SYR (RAD ONLY) 10 ML IV (09:23)
[2024-09-06] MEDS: FAMOTIDINE 20MG TABLET 20 MG PO (10:59)
[2024-09-06] MEDS: DOXYCYCLINE HYCL 100 MG TABLET PO (10:59)
[2024-09-06] MEDS: IRBESARTAN 75MG TABLET 75 MG PO (10:59)
[2024-09-06] MEDS: ASPIRIN 81MG CHEWABLE TABLET 81 MG PO (10:59)
[2024-09-06] MEDS: SPIRONOLACTONE 25MG TABLET 25 MG PO (10:59)
[2024-09-06] MEDS: FUROSEMIDE 40MG/4ML VIAL 40 MG IV (11:00)
[2024-09-06] MEDS: LORATADINE 10MG TABLET 10 MG PO (11:00)
[2024-09-06] MEDS: METOPROLOL SUCCINATE XL 50MG TABLET 50 MG PO (11:00)
[2024-09-06 11:12] LABS: POC Glucose,Bedside 129 (70-110)
[2024-09-06 12:00] VITALS: BP 104/59; PULSE 69; RESP 16; TEMP 36.8; O2SAT 97
--- NOTE | 2024-09-06 12:48 | EXP.DC.SUM ---
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 He states this symptom began about a week ago and has gotten worse, without productive cough, fever/chills, chest pain. He is on room air but states he has a hard time taking deep breaths, and is getting winded with exertion. He also states a rash broke out about 6 weeks ago throughout his body but predominantly his torso and chest. 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 However, 2 ticks were found in the ED. He states he was recently given a 10-day course of prednisone which helped the rash, course finished about a week and a half ago. Workup in the ED significant for BNP 2990, CXR with pulmonary edema, WBC 11.1. Also found to be in a flutter but rate controlled. Case discussed with ED provider and decision was made to admit patient for dyspnea exertion, new onset heart failure, A-fib. 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 He states this symptom began about a week ago and has gotten worse, without productive cough, fever/chills, chest pain. He is on room air but states he has a hard time taking deep breaths, and is getting winded with exertion. He also states a rash broke out about 6 weeks ago throughout his body but predominantly his torso and chest. 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 However, 2 ticks were found in the ED. He states he was recently given a 10-day course of prednisone which helped the rash, course finished about a week and a half ago. Workup in the ED significant for BNP 2990, CXR with pulmonary edema, WBC 11.1. Also found to be in a flutter but rate controlled. Case discussed with ED provider and decision was made to admit patient for dyspnea exertion, new onset heart failure, A-fib. Feeling better by morning. Cardiology evaluated. Given improvement in volume status and rate control and volume status, will discharge home with medical management for bridge conditions. Close follow-up with cardiology. Problems addressed as follows: #New onset heart failure, unknown type #A-fib versus flutter #Pulmonary edema Hypertension History of CABG ? Presented with progressive shortness of breath, pulmonary edema. BNP 2990. EKG showing A-fib versus flutter. Patient responded to diuretics. Improvement shortness of breath. Remained on room air. Cardiology was consulted to assist with care. Had adjustments made to his medications. Will discontinue amlodipine. Start Aldactone 25 mg daily. Discontinue aspirin. Initiate on Xarelto 20 mg daily due to a [id number] 2 score of 2. Continue metoprolol 50 mg daily, losartan 50 mg daily, Bumex 2 mg daily as needed for edema, initiate Farxiga 10 mg daily and continue Lipitor 40 mg daily. Cardiology recommends 2-week event monitor at discharge. Placed by respiratory therapy prior to discharge home. #Suspected tickborne illness/rash ? Diffuse macular, plaque-like rash that apparently improved with prednisone outpatient. 2 ticks found in the ED. Prednisone, doxycycline given in the ED. Continue doxycycline 100 mg twice daily to 7 days of therapy. No further steroids at discharge. Reevaluate response in #Type 2 diabetes ?Hemoglobin A1c 6.4 in June 2024. Sliding scale insulin with fingersticks ACHS during admission. Continue with Farxiga 10 mg daily. Needs repeat A1c in September Total time spent on discharge 32 minutes in counseling, documentation, chart review, and direct care with patient. Exam Data for Last 24 hours Vital signs and Labs for Last 24 Hours: Temp Pulse Resp BP Pulse Ox O2 Del Method 97.8 F 83 16 112/65 95 Room Air 09/06/24 08:00 09/06/24 08:00 09/06/24 08:00 09/06/24 08:00 09/06/24 08:00 09/06/24 12:35 Laboratory Results - last 24 hr 09/05/24 14:15: Troponin I 0.02 09/05/24 16:15: Lactate 1.3, Troponin I 0.01 09/05/24 19:58: POC Glucose 429 H* 09/06/24 05:47: POC Glucose 267 H 09/06/24 06:08: WBC 9.3, RBC 4.12 L, Hgb 13.0 L, Hct 38.2 L, MCV 92.7, MCH 31.6 H, MCHC 34.0, RDW 12.4, Plt Count 197, MPV 10.0, Neut % (Auto) 77.5, Lymph % (Auto) 13.2, [place] % (Auto) 8.2, Eos % (Auto) 0.5, Baso % (Auto) 0.3, Neut # (Auto) 7.2, Lymph # (Auto) 1.2, [place] # (Auto) 0.8, Eos # (Auto) 0.1, Baso # (Auto) 0.0, Sodium 137, Potassium 4.2, Chloride 105, Carbon Dioxide 26, Anion Gap 10.2, BUN 26 H D, Creatinine 1.00, Estimated Creat Clear 91, Estimated GFR 75, Est GFR ( Amer) 90, Glucose 237 H, Calcium 9.2, Magnesium 2.3, Total Bilirubin 0.8, AST 40, ALT 78, Alkaline Phosphatase 126, Total Protein 7.2, Albumin 4.2, Globulin 3.0, Albumin/Globulin Ratio 1.4 09/06/24 11:04: POC Glucose 129 H I & O for Last 24 hours: Intake & Output 09/03/24 09/04/24 09/05/24 09/06/24 23:59 23:59 23:59 23:59 Intake Total 120 / 360 600 / 600 Output Total 2125 / 2125 0 / 0 Balance -2004 / 1765 600 / 600 Weight 91.399 kg 89.358 kg Microbiology Reports for the Last 24 Hours: Microbiology 09/05/24 10:32 Blood Blood Culture - Preliminary 09/05/24 10:30 Blood Blood Culture - Preliminary NO GROWTH AFTER 24 HOURS Constitutional Constitutional: no acute distress, obese and cooperative *Routine HEENT Exam Head: Present normocephalic Eye: Present EOMI and PERRL ENT: Present mucous membranes moist *Routine Neck Exam Neck: Present supple; Absent lymphadenopathy *Routine Respiratory Exam Respiratory: Present CTA bilaterally; Absent rhonchi, wheezes or crackles *Routine Cardiovascular Exam Cardiovascular: Present irregularly irregular *Routine Abdominal Exam Abdominal: Present soft and normoactive bowel sounds; Absent tenderness *Routine Rectal Exam Patient deferred: visual exam *Routine Exam Patient deferred: penile exam *Routine Extremities Exam Extremities: Absent cyanosis, clubbing or edema *Routine Skin Exam Skin: Present warm; Absent rash *Routine Neurological Exam Neurological: Present alert, oriented X3 and moving all extremities; Absent altered mental status Results Data Completed and Pending Labs on day of discharge: Labs from last 24 hours 09/06/24 09/06/24 09/06/24 11:04 06:08 05:47 WBC 9.3 RBC 4.12 L Hgb 13.0 L Hct 38.2 L MCV 92.7 MCH 31.6 H MCHC 34.0 RDW 12.4 Plt Count 197 MPV 10.0 Neut % (Auto) 77.5 Lymph % (Auto) 13.2 [place]ett % (Auto) 8.2 Eos % (Auto) 0.5 Baso % (Auto) 0.3 Neut # (Auto) 7.2 Lymph # (Auto) 1.2 Pickett # (Auto) 0.8 Eos # (Auto) 0.1 Baso # (Auto) 0.0 Sodium 137 Potassium 4.2 Chloride 105 Carbon Dioxide 26 Anion Gap 10.2 BUN 26 H D Creatinine 1.00 Estimated Creat Clear 91 Estimated GFR 75 Est GFR ( Amer) 90 Glucose 237 H POC Glucose 129 H 267 H Lactate Calcium 9.2 Magnesium 2.3 Total Bilirubin 0.8 AST 40 ALT 78 Alkaline Phosphatase 126 Troponin I Total Protein 7.2 Albumin 4.2 Globulin 3.0 Albumin/Globulin Ratio 1.4 09/05/24 09/05/24 09/05/24 19:58 16:15 14:15 WBC RBC Hgb Hct MCV MCH MCHC RDW Plt Count MPV Neut % (Auto) Lymph % (Auto) [place]ett % (Auto) Eos % (Auto) Baso % (Auto) Neut # (Auto) Lymph # (Auto) [place]ett # (Auto) Eos # (Auto) Baso # (Auto) Sodium Potassium Chloride Carbon Dioxide Anion Gap BUN Creatinine Estimated Creat Clear Estimated GFR Est GFR ( Amer) Glucose POC Glucose 429 H* Lactate 1.3 Calcium Magnesium Total Bilirubin AST ALT Alkaline Phosphatase Troponin I 0.01 0.02 Total Protein Albumin Globulin Albumin/Globulin Ratio Preliminary micro results at discharge 09/05/24 10:32 Blood Culture - Preliminary Blood 09/05/24 10:30 Blood Culture - Preliminary Blood NO GROWTH AFTER 24 HOURS DS: Diagnosis Discharge Diagnosis (1) Acute heart failure: Status: Acute Code(s): I50.9 - Heart failure, unspecified (2) New onset a-fib: Status: Acute Code(s): I48.91 - Unspecified atrial fibrillation (3) Embedded tick of lower leg: Status: Acute Code(s): S80.859A - Superficial foreign body, unspecified lower leg, initial encounter; Z18.39 - Other retained organic fragments (4) Rash: Status: Acute Code(s): R21 - Rash and other nonspecific skin eruption Meds Home Medications and Allergies Home Medications ?Medication ?Instructions ?Recorded ?Confirmed ?Type apple cider vinegar 300 mg tablet 300 mg PO DAILY 03/03/23 09/05/24 History atorvastatin 40 mg tablet 40 mg PO DAILY 03/03/23 09/05/24 History coenzyme Q10 200 mg capsule 200 mg PO DAILY 03/03/23 09/05/24 History cholecalciferol (vitamin D3) 25 25 mcg PO DAILY 07/14/23 09/05/24 History mcg (1,000 unit) capsule metoprolol succinate 50 mg 50 mg PO DAILY 01/12/24 09/05/24 History tablet,extended release 24 hr losartan 50 mg tablet 50 mg PO DAILY #90 tabs 01/13/24 09/05/24 Rx omega 8-kny-yox-fish oil 60 mg-90 1 cap PO DAILY 04/02/24 09/05/24 History mg-500 mg capsule (Fish Oil) cetirizine 10 mg tablet 10 mg PO DAILY 09/05/24 09/05/24 History famotidine 20 mg tablet 20 mg PO BID 09/05/24 09/05/24 History hydroxyzine HCl 25 mg tablet 25 mg PO Q8H 09/05/24 09/05/24 History apixaban 5 mg tablet (Eliquis) 5 mg PO BID #60 tabs 09/06/24 Rx bumetanide 2 mg tablet 2 mg PO DAILY #30 tabs 09/06/24 Rx dapagliflozin propanediol 10 mg 10 mg PO DAILY #30 tabs 09/06/24 Rx tablet (Farxiga) doxycycline hyclate 100 mg tablet 100 mg PO BID 6 days #12 tabs 09/06/24 Rx spironolactone 25 mg tablet 25 mg PO DAILY 30 days #30 tabs 09/06/24 Rx New Prescriptions to Start Prescriptions: apixaban [Eliquis] Earl Pradometanide Earl Prado dapagliflozin propanediol [Farxiga] Earl Prado doxycycline hyclate Earl Prado spironolactone Earl Prado Allergies Allergy/AdvReac Type Severity Reaction Status Date / Time No Known Allergies Allergy Verified 07/09/24 08:29 Discharge Plan Disposition Patient Disposition: Home, Self-Care Condition: Good Discharge Order Discharge Orders: Discharge Order (Routine); Ordered 09/06/24 Ordered By: Earl Prado Follow up Plan Follow up with: Jose Messer PA [Physician Child Care Sitter, Cardiology] - 09/15/24 10:15 am Pilar Alexander APRN [Primary Care Provider, Medical] - 09/14/24 9:00 am Prescriptions/Medication Reconciliation: New spironolactone 25 mg Tablet 25 mg PO DAILY 30 Days Qty: 30 0RF bumetanide 2 mg tablet 2 mg PO DAILY Qty: 30 0RF dapagliflozin propanediol [Farxiga] 10 mg tablet 10 mg PO DAILY Qty: 30 0RF doxycycline hyclate 100 mg Tablet 100 mg PO BID 6 Days Qty: 12 0RF Eliquis 5 mg tablet 5 mg PO BID Qty: 60 0RF Continued metoprolol succinate 50 mg tablet extended release 24 hr 50 mg PO DAILY Patient Comments: TAKE 1 TABLET BY MOUTH ONCE DAILY atorvastatin 40 mg tablet 40 mg PO DAILY apple cider vinegar 300 mg tablet 300 mg PO DAILY coenzyme Q10 200 mg capsule 200 mg PO DAILY cholecalciferol (vitamin D3) 25 mcg (1,000 unit) capsule 25 mcg PO DAILY omega 9-kfc-yxf-fish oil [Fish Oil] 60-90-500 mg capsule 1 cap PO DAILY losartan 50 mg tablet 50 mg PO DAILY Qty: 90 2RF cetirizine 10 mg tablet 10 mg PO DAILY Patient Comments: TAKE 1 TABLET BY MOUTH ONCE DAILY famotidine 20 mg tablet 20 mg PO BID hydroxyzine HCl 25 mg tablet 25 mg PO Q8H Patient Comments: TAKE 1 TABLET BY MOUTH EVERY 8 HOURS Discontinued aspirin 81 mg tablet,chewable 81 mg PO DAILY amlodipine 10 mg tablet 10 mg PO DAILY Qty: 90 2RF Problem Reconciliation Problems Reviewed?: Yes Patient Discharge Instructions ACTIVITY: Continue current activity DIET: continue same diet Patient Instructions: Congestive Heart Failure (Alternative Therapy), Heart Failure, How to [place] With Heart Failure, Stop Light Heart Failure Print Language: [place] Providers Primary Care Provider: Pilar Alexander Admit Provider: Ivan Collado Attending Provider: Ivan Collado
--- NOTE | 2024-09-06 14:19 | EXP.CARD.CON ---
History of Present Illness History of Present Illness Consult date: 09/29/24 Requesting physician: Earl Prado Chief complaint: SOA, weakness History of present illness: 69-year-old white male new to us this visit with history of CAD status post CABG at [facility] in 2011. There is an echo in his chart here from 2023 showing LVH at 1.5 cm with increased provokable outflow gradient. We were not consulted at admission, patient states he was unaware of results. He presented to the emergency room over the weekend complaining of 1 week worsening dyspnea on exertion and lower extremity edema. Of note he was found to have a rash to his torso approximately 6 weeks ago and 2 ticks were found behind his knee in the emergency department. Workup here included new diagnosis a flutter which was rate controlled, chest x-ray with streaky opacities in lower lobes which was atelectasis versus developing pneumonia. D-dimer was elevated at 0.91 but no CTA was obtained. Glucose was 429 but recently on steroids for his rash. Troponin normal x 3, proBNP 2990. He has diuresed 1.7 L since admission and reports feeling significantly better. [facility] Disclaimer: The information contained in this section may have been updated after the patient was seen, as this information can be updated by other users. Medical History Hyperlipidemia Hypertension Prostate cancer Surgical History History of prostate surgery Hx of heart surgery Social History Smoking Status: Never smoker alcohol intake: current alcohol intake frequency: 3 or more drinks per day current occupational status: retired Travel in the last 8 weeks?: None Have you lived/traveled outside US in past 30 days?: No Contact w/someone who lives/traveled outside US past 30 days?: No Exposure to someone with infectious disease in past 14 days?: No Do you have a fever (greater than 100.4 F or 38 C)?: No Have you tested positive for COVID-19?: No Exposed to someone with COVID-19 in past 14 days?: No Do you have a sore throat?: No Do you have a cough?: No Do you have any weakness?: No Do you have any diarrhea?: No Are you experiencing any unusual bleeding?: No Do you have any muscle aches/pain?: No Do you have any abdominal pain?: No Are you experiencing loss of taste or smell?: No Review of Systems Constitutional Constitutional: Denies fatigue and Reports weakness Eyes Eyes: Denies loss of vision ENT Ears, Nose, Mouth, and Throat: Denies hearing loss and Denies vertigo *Cardiovascular Cardiovascular: Denies chest pain, Reports dyspnea and Denies syncope *Respiratory Respiratory: Denies cough and Reports dyspnea *Gastrointestinal Gastrointestinal: Denies change in stool character, Denies nausea and Denies vomiting *Genitourinary Genitourinary: Denies difficulty urinating *Musculoskeletal Musculoskeletal: Denies muscle weakness Integumentary/Breasts Skin/Breast: Denies changing lesions *Neurologic Neurologic: Denies loss of vision, Denies syncope, Denies vertigo and Reports weakness Endocrine Endocrine: Denies fatigue Exam Data for Last 24 hours Vital signs and Labs for Last 24 Hours: Temp Pulse Resp BP Pulse Ox O2 Del Method 97.8 F 83 16 112/65 95 Room Air 09/06/24 08:00 09/06/24 08:00 09/06/24 08:00 09/06/24 08:00 09/06/24 08:00 09/06/24 12:35 Laboratory Results - last 24 hr 09/05/24 14:15: Troponin I 0.02 09/05/24 16:15: Lactate 1.3, Troponin I 0.01 09/05/24 19:58: POC Glucose 429 H* 09/06/24 05:47: POC Glucose 267 H 09/06/24 06:08: WBC 9.3, RBC 4.12 L, Hgb 13.0 L, Hct 38.2 L, MCV 92.7, MCH 31.6 H, MCHC 34.0, RDW 12.4, Plt Count 197, MPV 10.0, Neut % (Auto) 77.5, Lymph % (Auto) 13.2, [place] % (Auto) 8.2, Eos % (Auto) 0.5, Baso % (Auto) 0.3, Neut # (Auto) 7.2, Lymph # (Auto) 1.2, [place] # (Auto) 0.8, Eos # (Auto) 0.1, Baso # (Auto) 0.0, Sodium 137, Potassium 4.2, Chloride 105, Carbon Dioxide 26, Anion Gap 10.2, BUN 26 H D, Creatinine 1.00, Estimated Creat Clear 91, Estimated GFR 75, Est GFR ( Amer) 90, Glucose 237 H, Calcium 9.2, Magnesium 2.3, Total Bilirubin 0.8, AST 40, ALT 78, Alkaline Phosphatase 126, Total Protein 7.2, Albumin 4.2, Globulin 3.0, Albumin/Globulin Ratio 1.4 09/06/24 11:04: POC Glucose 129 H I & O for Last 24 hours: Intake & Output 09/03/24 09/04/24 09/05/24 09/06/24 23:59 23:59 23:59 23:59 Intake Total 120 / 360 600 / 600 Output Total 2125 / 2125 0 / 0 Balance -[id number] 600 / 600 Weight 201 lb 8 oz 197 lb Microbiology Reports for the Last 24 Hours: Microbiology 09/05/24 10:32 Blood Blood Culture - Preliminary 09/05/24 10:30 Blood Blood Culture - Preliminary NO GROWTH AFTER 24 HOURS Constitutional Constitutional: no acute distress and cooperative *Routine HEENT Exam Eye: Present PERRL *Routine Respiratory Exam Respiratory: Present CTA bilaterally; Absent accessory muscle use, wheezes or crackles *Routine Cardiovascular Exam Cardiovascular: Present RRR, Normal S1 and Normal S2; Absent murmur, gallop or rubs *Routine Abdominal Exam Abdominal: Present soft; Absent tenderness *Routine Extremities Exam Extremities: Present pulses intact; Absent cyanosis or edema *Routine Skin Exam Skin: Present intact; Absent erythema or wounds *Routine Neurological Exam Neurological: Present alert and oriented X3 Routine Psychiatric Exam Psychiatric: Present cooperative Meds Home Medications and Allergies Home Medications ?Medication ?Instructions ?Recorded ?Confirmed ?Type apple cider vinegar 300 mg tablet 300 mg PO DAILY 03/03/23 09/05/24 History aspirin 81 mg chewable tablet 81 mg PO DAILY 03/03/23 09/05/24 History atorvastatin 40 mg tablet 40 mg PO DAILY 03/03/23 09/05/24 History coenzyme Q10 200 mg capsule 200 mg PO DAILY 03/03/23 09/05/24 History cholecalciferol (vitamin D3) 25 25 mcg PO DAILY 07/14/23 09/05/24 History mcg (1,000 unit) capsule metoprolol succinate 50 mg 50 mg PO DAILY 01/12/24 09/05/24 History tablet,extended release 24 hr losartan 50 mg tablet 50 mg PO DAILY #90 tabs 01/13/24 09/05/24 Rx omega 1-yvi-qeu-fish oil 60 mg-90 1 cap PO DAILY 04/02/24 09/05/24 History mg-500 mg capsule (Fish Oil) amlodipine 10 mg tablet 10 mg PO DAILY #90 tabs 07/09/24 09/05/24 Rx cetirizine 10 mg tablet 10 mg PO DAILY 09/05/24 09/05/24 History famotidine 20 mg tablet 20 mg PO BID 09/05/24 09/05/24 History hydroxyzine HCl 25 mg tablet 25 mg PO Q8H 09/05/24 09/05/24 History New Prescriptions to Start Prescriptions: Allergies Allergy/AdvReac Type Severity Reaction Status Date / Time No Known Allergies Allergy Verified 07/09/24 08:29 Assessment and Plan *Assessment and plan (1) Acute on chronic heart failure with preserved ejection fraction (HFpEF): Status: Acute Category: Medical Code(s): I50.33 - Acute on chronic diastolic (congestive) heart failure (2) Atrial flutter with controlled response: Status: Acute Category: Medical Code(s): I48.92 - Unspecified atrial flutter (3) Embedded tick of lower leg: Status: Acute Category: Medical Code(s): S80.859A - Superficial foreign body, unspecified lower leg, initial encounter; Z18.39 - Other retained organic fragments (4) Macular rash: Status: Acute Category: Medical Code(s): R21 - Rash and other nonspecific skin eruption Plan Acute on chronic HFpEF - Known LVH 1.5 cm with increased outflow tract gradient as far back as 1 year ago - Appears decompensated in setting of new atrial fibrillation and tickborne illness with diffuse rash - Patient feeling significantly better post 1.7 L diuresed - We discussed he needs outpatient cardiac MRI to rule out amyloidosis and to further assess etiology of his LVH - Cont home dose metoprolol and losartan -Change home dose amlodipine to Aldactone A-fib, CVR - new dx this admission, asymptomatic and rate controlled - [id number] =3, pt agreeable to OAC, Xarelto 20 - not interested in DCCV this admisison, can check OP monitor and reassess - will also need outpatient ischemic workup - 2-week monitor at discharge Htn - well controlled - med changes as above Macular rash to torso, presumed tickborne illness - Patient is a whittington and has had multiple ticks noted on him recently - Diffuse macular rash over torso still present for 6 weeks despite prednisone - Infectious titers sent off, patient on doxycycline - Consider outpatient infectious disease consultation-need to check for Lyme, Ali Molina spotted fever, Q fever Patient CV stable for discharge home with plans as outlined above CV Discharge Meds: 1. DC amlodipine 2. Start Aldactone 25 mg p.o. daily 3. Discontinue aspirin 4. Start Xarelto 20 mg p.o. daily 5. Continue metoprolol 50 mg daily 6. Continue losartan 50 mg 1 p.o. daily 7. Add Bumex 2 mg p.o. daily as needed edema 8. Add Farxiga 10mg daily 9. Continue atorvastatin 40 mg daily CV Follow Up: 1-2 weeks with our office
--- NOTE | 2024-09-06 15:11 | PC.NURSE ---
Aox4, up stand by assist, fsgb, 20g L AC SL, rash on front of chest and back.
[2024-09-06 16:16] LABS: Lyme Ab CIA Negative (Negative)
--- NOTE | 2024-09-06 17:12 | CA_ITS ---
APPROVED REPORT EXAM: Comprehensive 2D, Doppler, and color-flow Echocardiogram Ivory Carver: Beatris Sun CRT Ht: 5 ft 9 in Wt: 201lbs BSA: 2.07 BP: 160/86 mmHg Indications: Congestive Heart Failure, Atrial Fibrillation 2D Dimensions LA Volume 58.10 mL LA Volume Index 27.40 mL/m2 (M/F) 16-34 M-Mode Dimensions RVDd 3.35 cm (0.9-2.6) LA Diam 4.20 cm (1.9-4.0) LVDd 4.48 cm (3.5-5.7) LVDs 3.17 cm (3.5-5.7) IVSd 2.21 cm (0.6-1.1) PWd 0.82 cm (0.6-1.1) EF (Teich) 56.30% FS 29.20% EDV (Teich) 91.50 mL TAPSE 1.53 (<1.7) ESV (Teich) 40.00 mL LV Diastology E Decel Time 207 (160-240 msec) E/A Ratio 3.57 MED A' 2.70 cm/s LAT A' 1.80 cm/s Aortic Valve MAHSA Index 0.84 cm2/m2 AoV Peak Zana. 280.0 (50-130 cm/s) AO Peak GR. 31.30 mmHg AO Mean GR. 15.90 (<5 mmHg) AO VTI 44.7 (18-25 cm) MAHSA (VTI) 1.79 (2.5-4.5 cm2) Mitral Valve MV E Max Zana. 96.0 (40-130 cm/s) MV A Velocity 27.0 (40-130 cm/s) E/A Ratio 3.57 MV PHT 61.0 ms Pulmonary Valve PV Peak Velocity 116.0 (50-150 cm/s) Tricuspid Valve TR P. Velocity 369.00 cm/s RAP Estimate 10.00 mmHg RVSP 64.50 mmHg Left Ventricle The left ventricle is normal size. The left ventricular systolic function is normal. The left ventricular ejection fraction is within the normal range. There is marked increase in LV wall thickness (IVSd 1.5 cm). There is no evidence of LVOT obstruction at rest. There is normal LV segmental wall motion. Diastolic function is indeterminate. LVEF is 65 - 70%. Right Ventricle The right ventricle is normal size. The right ventricular systolic function is normal. Atria The left atrium is mildly dilated. Right atrium is mildly dilated. There is no Doppler evidence of interatrial shunt. The aortic valve opens well. Aortic Valve There is no aortic valvular stenosis. No aortic regurgitation is present. Mitral Valve There is a systolic anterior motion (LOWELL) present, but no evidence of septal contact. No evidence of mitral valve stenosis. Trace mitral regurgitation. Tricuspid Valve Tricuspid valve is grossly normal in structure and function. Trace tricuspid regurgitation. There is insufficient TR jet to estimate RVSP. Pulmonic Valve The pulmonary valve is normal in structure. Trace pulmonic regurgitation. Great Vessels The aortic root is normal in size. IVC is normal in size and collapses >50% with inspiration. Pericardium There is no pericardial effusion. Other Information Study Quality: Fair Conclusion Normal biventricular systolic function (LVEF 65-70%). Marked increase in LV wall thickness. IVSd 1.5 cm. Presence of LOWELL, with no septal contact. No LVOT obstruction at rest. No significant valvular stenosis or regurgitation. In the setting of marked increase of wall thickness and biatrial dilation, further evaluation for infiltrative disease versus HCM is suggested with cardiac MRI (HCM plus amyloidosis protocol) + amyloidosis lab testing + PYP nuclear scan. Electronically signed by : Leslee Ivy MD 09/06/2024 12:53:44
--- NOTE | 2024-09-07 10:36 | SW/DCPLANNER ---
Spoke with patient on the phone. Patient stated that he is doing well. Patient stated that he is aware of his upcoming appointments. Patient stated that he was able to get his medicine picked up from [facility]. Patient stated that he has no concerns or questions at this time. Blake Renner
[2024-09-07 15:06] LABS: POC Glucose,Bedside 395 (70-110)
[2024-09-07 15:08] LABS: POC Glucose,Bedside 406 (70-110)
[2024-09-07 15:11] LABS: Babesia microti IgG <1:10 (Neg:<1:10); Babesia microti IgM <1:10 (Neg:<1:10)
[2024-09-08 12:14] LABS: Lyme B. burgdorferi PCR Blood Negative (Negative)
[2024-09-09 10:11] LABS: A. phagocytophilum,PCR Negative (Negative); Ehrlichia sp., PCR Negative (Negative)
--- NOTE | 2024-09-14 08:41 | PC.NURSE ---
I sent the pts culture results to the hospitalist as he was admitted.
== END 2024-09-06 17:10 | disposition home or self-care (01) | DRG 291 ==
LOC: ER 12:48 → 2ND 13:01
PROVIDERS: Admitting Provider Student in an Organized Health Care Education/Training Program; Emergency Provider Emergency Medicine; PCP Nurse Practitioner Family; Visit Provider Student in an Organized Health Care Education/Training Program
DX: I11.0 Hypertensive heart disease with heart failure (principal); I50.33 Acute on chronic diastolic (congestive) heart failure; I48.92 Unspecified atrial flutter; A93.8 Other specified arthropod-borne viral fevers; I48.91 Unspecified atrial fibrillation; R21 Rash and other nonspecific skin eruption; E11.9 Type 2 diabetes mellitus without complications; I25.10 Atherosclerotic heart disease of native coronary artery without angina pectoris; E78.5 Hyperlipidemia, unspecified; Z95.1 Presence of aortocoronary bypass graft; Z79.82 Long term (current) use of aspirin; Z79.899 Other long term (current) drug therapy
CPT/HCPCS: 36415; 71046; 71275; 80053; 82803; 82962; 83605; 83735; 83880; 84436; 84443; 84484; 85025; 85378; 86618; 86668; 86753; 86803; 87040; 87077; 87186; 87389; 87468; 87476; 87484; 93005; 93270; 93306; J1938; Q9967

== ENCOUNTER 2024-09-12 18:35 | Emergency (ER) | payer MEDICARE, OTHER, SELFPAY ==
[2024-09-12] VITALS (8 sets, daily range): BP systolic 94–203; BP diastolic 49–171; PULSE 69–83; RESP 16–18; TEMP 36.7–36.8; O2SAT 81–99; BMI 29.2
--- OUTSIDE RECORDS SUMMARY | 2024-09-12 18:44 | XMS_ITS | Encounter Summary ---
Author Organization [employer] Address [address] [place] [address] Care Team Providers Care Grinding Wheel Facer Name Role Phone AlexanderPilar guerrero APRN Primary Care Provider Mary Grace Camp MD Unavailable [phone] Encounter Details Date Type Department Care Team (Late st Contact Info) Description 08/27/2019 Transcribed Document [facility] Cardiology [address] [place] [address] [place] [address] [place] [address] [address] [place] [id number] Social History Tobacco Use Types Packs/Day Years Used Date Smoking Tobacco: Never Assessed Sex and Gender Information Value Date Recorded Sex Assigned at Not on file Legal Sex Male 1:41 PM CDT Gender Identity Not on file Sexual Orientation Not on file documented as of this encounter Miscellaneous Notes * Cerner Conversion Note - Mary Garce Camp MD - 08/27/2019 11:42 AM EDT DATE OF SERVICE: This patient underwent a stress test. The EKG portion of which was unremarkable. NUCLEAR SCAN: There appears to be a within normal myocardial perfusion. Normal wall motion wall thickening appreciated. Ejection fraction 61%. IMPRESSION: 1. Normal study. 2. Ejection fraction 61%. /[id number] Mary Grace Camp MD NMF/AQ / NMF / MODL /[id number] documented in this encounter Plan of Treatment Not on file documented as of this encounter Visit Diagnoses Not on filedocumented in this encounter Care Teams Grinding Wheel Facer Relationship Specialty Start Date End Date Pilar Alexander, YING [address] [address] PCP - General Nurse Practitioner 08/01/23 Mary Grace Camp MD [facility] [place] [address] Interventional Cardiology 08/01/23 documented as of this encounter
--- OUTSIDE RECORDS SUMMARY | 2024-09-12 18:44 | XMS_ITS | Encounter Summary ---
Author Organization [employer] Address [address] [place] [address] Care Team Providers Care Radio Tower Technician Name Role Phone Benjamin Pialr YING Primary Care Provider [phone] Mary Grace Camp MD Unavailable [phone] Encounter Details Date Type Department Care Team (Late st Contact Info) Description 07/22/2018 Transcribed Document [facility] Cardiology [address] [place] [address] Mary Grace Camp MD [address] [facility] [address] [place] [id number] Social History Tobacco Use Types Packs/Day Years [...] on filedocumented in this encounter Care Teams Radio Tower Technician Relationship Specialty Start Date End Date Pilar Alexander APRN [address] [address] PCP - General Nurse Practitioner 08/01/23 Mary Grace Camp MD [facility] [place] [address] Interventional Cardiology 08/01/23 documented as of this encounter
--- OUTSIDE RECORDS SUMMARY | 2024-09-12 18:44 | XMS_ITS | Clinical Summary ---
Author Organization [employer] Address [address] [place] [address] Care Team Providers Care Chartered Financial Analyst Name Role Phone Pilar Alexander APRN Primary Care Provider Mary Grace Camp MD Unavailable [phone] Allergies No known active allergies Medications [...] Date Todd rded Speak language other than Sudanese at home Not on file 07/31/2023 Want [...] 07/3108/01/2023 Influenza Vaccine (Season Ended) 2024 Insurance [facility] MEDICARE PART A B Care Teams Chartered Financial Analyst Relationship Specialty Start Date End Date Pilar Alexander, COMMUNITY RELATIONS REPRESENTATIVE [address] [place] [address] PCP - General Nurse Practitioner 08/01/23 Mary Grace Camp MD [address] [facility] [place] [address] Interventional Cardiology 08/01/23
--- OUTSIDE RECORDS SUMMARY | 2024-09-12 18:44 | XMS_ITS | Clinical Summary ---
Author Organization Healthcare Address [address] [place] [address] Care Team Providers Care Hospital Account Liaison Name Role Phone Pilar Alexander YING Primary Care Provider [phone] Allergies No known active allergies Medications atorvastatin [...] Description 08/12/2024 Orders Only External Location [address] [place] [address] Yair Akhtar MD 08/12/2024 Orders Only External Location [address] [place] [address] Yair Akhtar MD from Last 3 Months [...] drink first t renetta in the morning (EYE-MOVIE ACTOR) to steady your nerves or to get rid of a hangover? 0 08/28/2023 CAGE Questionnaire Score 0 024 Utilities Answer Date Recorded In the past 12 months has e [employer], gas, oil, or water [employer] threatened to shut off services in your [...] Screening 1955 [place]-Medicare Annual Wellness (AWV) 1955 UK[facility]-/Child/Adol SDOH Screenings 1955 [id number] Vaccine (#1) 1962 [facility]- SDOH Screenings 1975 [...] Most Recently Relevant to Health Maintenance Insurance [facility] [address] [id number] [place] [address] [facility] * Full Code (Latest Code Status on File) Date Activated Date Inactivated Comments 08/28/2023 5:05 PM 08/31/2023 7:45 PM Question Answer Comments Patient has decision-making capacity? Yes Care Teams Hospital Account Liaison Relationship Specialty Start Date End Date Pilar Alexander APRN [address] [place] [address] PCP - General 03/31/23
--- OUTSIDE RECORDS SUMMARY | 2024-09-12 18:44 | XMS_ITS | Encounter Summary ---
Author Organization [employer] Address [address] [place] [address] Care Team Providers Care Hammer Adjuster Name Role Phone BenjaminPilar YING Primary Care Provider [phone] Mary Grace Camp MD Unavailable [phone] Encounter Details Date Type Department Care Team (Late st Contact Info) Description 08/08/2020 Transcribed Document [facility] Cardiology [address] [place] [address] [place] [address] [place] [address] [address] [place] [id number] Social History Tobacco Use Types Packs/Day Years [...] 1. Normal study. 2. Ejection fraction 70%. /[id number] MD AMA Leonard/AQ / AMA / MODL /[id number] documented in this encounter Plan of Treatment Not on file documented as of this encounter Visit Diagnoses Not on filedocumented in this encounter Care Teams Hammer Adjuster Relationship Specialty Start Date End Date Pilar Alexander, INCUBATOR OPERATOR [address] [address] PCP - General Nurse Practitioner 08/01/23 Mary Grace Camp MD [address] [place] [address] [place] [address] Interventional Cardiology 08/01/23 documented as of this encounter
--- OUTSIDE RECORDS SUMMARY | 2024-09-12 18:44 | XMS_ITS ---
Laboratory report Created on: September 11, 2024 MICHAEL MARQUEZ : 1955 Sex: Male Author Organization Unknown PROBLEMS Problems List Code Description RESULTS Laboratory Orders Date Order Code Test 2024-09-05 [id number] EHRLICHIA DETECT ION PCR Laboratory Results Date LOINC Test Value Unit Reference Range Interpre tation 2024-09-05 [id number] A PHAGOCYTOPHILUM PCR N NEGATIV E 2024-09-05 [id number] EHRLICHIA SP, PCR N NEGATIVE
--- OUTSIDE RECORDS SUMMARY | 2024-09-12 18:44 | XMS_ITS ---
Laboratory report Created on: September 09, 2024 JIMMY MICHAEL : 1955 Sex: Male Author Organization Unknown PROBLEMS Problems List Code Description RESULTS Laboratory Orders Date Order Code Test 2024-09-05 [id number] BABESIA MICROTI ANTIBODY PANEL Laboratory Results Date LOINC Test Value Unit Reference Range Interpre tation 2024-09-05 [id number] BABESIA MICROTI IGG <1:10 NEG:<1:10 2024-09-05 [id number] BABESIA MICROTI IGM <1:10 NEG:<1:10
--- OUTSIDE RECORDS SUMMARY | 2024-09-12 18:44 | XMS_ITS | Encounter Summary ---
Author Organization Healthcare Address [address] [place] [address] Care Team Providers Care Music Assistant Name Role Phone Pilar Alexander Blanca HE Primary Care Provider [phone] Encounter Details Date Type Department Care Team (Late st Contact Info) Description 08/12/2024 Orders Only External Location [address] [place] [address] Yair Akhtar MD [address] [facility] [address] [place] [address] Social History Tobacco Use Types Packs/Day Years [...] place to sleep or slept in a snf (including now)? No 08/29/2023 CAGE ASSESSMENT Answer [...] drink first t renetta in the morning (EYE-CONCRETE MIXING TRUCK DRIVER) to steady your nerves or to get [...] documented as of this encounter Care Teams Music Assistant Relationship Specialty Start Date End Date Pilar Alexander APRN [address] [place] [address] PCP - General 03/31/23 documented as of this encounter
--- OUTSIDE RECORDS SUMMARY | 2024-09-12 18:44 | XMS_ITS | Data Portability ---
Author Organization [place] - [facility] ADMIN Address [address] [place] [address] Care Team Providers Care Dock Boss Name Role Phone ROMA LEO Primary Care Provider [phone] Assessment No assessment recorded. Plan of Treatment [...] WBC 6.7 K/uL 4.0-10 .5 Not Available [facility] [address] , [place], [address], 07/30/2023 10:54:27 07/30/19 24 07/30/2023 CBC AUTO NO DIFF (HEMO GRAM) RBC 4.7 M/mm3 4.7-6. 1 Not Available [facility] [address], [place], [address], 07/30/2023 10:54:27 07/30/19 24 07/30/2023 CBC AUTO NO DIFF (HEMO GRAM) HGB 14.9 gm/dL 13.5-1 8.0 Not Available [facility] [address], [place], [address], 07/30/2023 10:54:27 07/30/19 24 07/30/2023 CBC AUTO NO DIFF (HEMO GRAM) HCT 44.1 % 42.0-5 2.0 Not Available [facility] ([facility] [address], [place], [address], 07/30/2023 10:54:27 07/30/19 24 07/30/2023 CBC AUTO NO DIFF (HEMO GRAM) MCV 93.4 fL 78-100 Not Available [facility] ([facility] [address], [place], [address], 07/30/2023 10:54:27 07/30/19 24 07/30/2023 CBC AUTO NO DIFF (HEMO GRAM) MCH 31.6 pg 27-31 high Not Available [facility] [address], [place], [address], 07/30/2023 10:54:27 07/30/19 24 07/30/2023 CBC AUTO NO DIFF (HEMO GRAM) MCHC 33.8 g/dL 32-36 Not Available [facility] [address], [place], [address], 07/30/2023 10:54:27 07/30/19 24 07/30/2023 CBC AUTO NO DIFF (HEMO GRAM) RDW 12.3 % 11.5-1 4.0 Not Available [facility] [address], [place], [address], 07/30/2023 10:54:27 07/30/19 24 07/30/2023 CBC AUTO NO DIFF (HEMO GRAM) platelet count 185 K/uL 150-45 0 Not Available [facility] [address], [place], [address], 07/30/2023 10:54:27 07/30/19 24 07/30/2023 CBC AUTO NO DIFF (HEMO GRAM) MPV 9.7 fL 6-9.5 high Not Available [facility] [address], [place], [address], 07/30/2023 10:54:27 07/30/19 24 07/30/2023 CBC AUTO NO DIFF (HEMO GRAM) manual differential NO Not Available [facility] ([facility] [address], [place], [address], 07/30/2023 10:54:27 07/30/19 24 07/30/2023 PT (PROT HROMB IN TIME) W INR prothrombin time 10.1 secon ds 9.3-11 .4 Not Available [facility] [address], [address] [facility], [place], [address], 07/30/2023 11:23:19 07/30/19 24 07/30/2023 PT (PROT [...] Mecha nical Heart Valve s Not Available [facility] [address], [place], [address], 07/30/2023 11:23:19 07/30/19 24 07/30/2023 COMP METAB OLIC PANEL sodium 139 mmol/ L 136-14 5 Not Available [facility] [address], [facility] [facility], [place], [address], 07/30/2023 11:34:15 07/30/19 24 07/30/2023 COMP METAB OLIC PANEL potassium 4.5 mmol/ L 3.6-5. 0 Not Available [facility] [address], [place], [address], 07/30/2023 11:34:15 07/30/19 24 07/30/2023 COMP METAB OLIC PANEL chloride 103 mmol/ L 98-107 Not Available [facility] [address], [place], [address], 07/30/2023 11:34:15 07/30/19 24 07/30/2023 COMP METAB OLIC PANEL carbon dioxide 26.6 mmol/ L 21.0-3 2.0 Not Available [facility] [address], [place], [address], 07/30/2023 11:34:15 07/30/19 24 07/30/2023 COMP METAB OLIC PANEL anion gap 13.9 Not Available [facility] [address] , [place], [address], 07/30/2023 11:34:15 07/30/19 24 07/30/2023 COMP METAB OLIC PANEL glucose 121 mg/dL 70-120 high Not Available [facility] [address] , [place], [address], 07/30/2023 11:34:15 07/30/19 24 07/30/2023 COMP METAB OLIC PANEL BUN 15 mg/dL 7-18 Not Available [facility] [address] , [place], [address], 07/30/2023 11:34:15 07/30/19 24 07/30/2023 COMP METAB OLIC PANEL creatinine 1.1 mg/dL 0.6-1. 3 Not Available [facility] [address] [place], [address], 07/30/2023 11:34:15 07/30/19 24 07/30/2023 COMP METAB OLIC PANEL glomerular filtration rate >60 mlper min 60- Not Available [facility] [address], [place], [address], 07/30/2023 11:34:15 07/30/19 24 07/30/2023 COMP METAB OLIC PANEL total protein 7.2 g/dL 6.4-8. 2 Not Available [facility] [address], [place], [address], 07/30/2023 11:34:15 07/30/19 24 07/30/2023 COMP METAB OLIC PANEL albumin 4.3 g/dL 3.4-5. 0 Not Available [facility] [address], [place], [address], 07/30/2023 11:34:15 07/30/19 24 07/30/2023 COMP METAB OLIC PANEL globulin 2.9 Not Available [facility] [address], [place], [address], 07/30/2023 11:34:15 07/30/19 24 07/30/2023 COMP METAB OLIC PANEL alb/glob ratio 1.5 0.7-2 Not Available [facility] [address], [place], [address], 07/30/2023 11:34:15 07/30/19 24 07/30/2023 COMP METAB OLIC PANEL calcium 9.2 mg/dL 8.5-10 .5 Not Available [facility] [address] [place], [address], 07/30/2023 11:34:15 07/30/19 24 07/30/2023 COMP METAB OLIC PANEL bilirubin total 0.70 mg/dL 0.10-1 .00 Not Available [facility] [address] [place], [address], 07/30/2023 11:34:15 07/30/19 24 07/30/2023 COMP METAB OLIC PANEL AST (SGOT) 35 U/L 0-37 Not Available [facility] [address], [place], [address], 07/30/2023 11:34:15 07/30/19 24 07/30/2023 COMP METAB OLIC PANEL ALT (SGPT) 76 U/L 0-65 high Not Available [facility] [address], [place], [address], 07/30/2023 11:34:15 07/30/19 24 07/30/2023 COMP METAB OLIC PANEL alk phosphatase 98 U/L 46-116 Not Available [facility] [address], [place], [address], 07/30/2023 11:34:15 07/30/19 24 07/31/2023 CEA cea 3.9 NG/mL 0.0-4. 7 Nonsm okers <3.9 Smoke rs <5.6 . 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 Value s obtai geno with diffe rent assay metho ds or kits canno t be used inter childs eaezra . Resul ts canno t be inter prete d as absol kashia evide nce of the prese nce or absen ce of [facility] cortes . Perfo rmed at: [facility] [address], [place] [address] [facility] Lab Direc tor: Alexandro aguilar PhD, Phone : [phone] Not Available [facility] [address] , [place], [address], 07/31/2023 13:12:11 07/30/19 24 07/30/2023 CT, chest , w/ contr ast [facility] [address] [place] [address] Phone: Fax: Name: RONADL MARQUEZ Exam Date: 07/30/19 24 : 958 Age 68 years Gender : M Access ion: [id number] Physic myron: CASE, CHEY Facili ty: [facility] Facili ty HSV: Outpat ient Exam: CT [...] Thank you for referr RONALD Ortega to [facility] al. Legall y authen ticate d by POPE JEREMY Julio 07-29 12:28: 02 CC'ed Logic: Orderi ng Provid er: BLAYNE CHEY Attend ing Provid er: BLAYNE CHEY Admitt ing Provid er: BLAYNE GUERRIER [email or web address] [facility] - Physical Therapy [address], [facility] [facility], [place], [address], 08/06/2023 15:30:59 Result Notes None recorded. Procedures Surgical History Date Name Laterality Status Provider Name and Address Organization Details Recorded Time 2 Cancer Surgery completed Hilary RODRIGUEZ [facility] & [place] 08/06/2023 10:26:40 2 Cancer Surgery completed Hilary RODRIGUEZ [facility] [place] 08/06/2023 10:26:26 procedure on heart completed Hilary Grier [place] - [facility] - [place] & [place] 08/06/2023 10:27:32 Imaging Results None recorded. Procedure [...] Updated DateTime 4 172.72 cm 30.7 kg/m2 46721.3 g 98.9 [degF] 98 % 98 % 74 /min 211 mm[Hg] 101 mm[Hg] Hilary Grier [facility] & [place] 10:23:49 Social History Question Answer Notes LastModified by Organizat ion Details LastModified Time Tobacco Smoking Status Current Every Day Smoker Hilary Grier [facility] & [place] 08/06/2023 10:24:11 Do You Have An Advance Directive? Yes [email or web address] Information not available 08/06/2023 Are You Blind Or Do You Have Difficulty Seeing? No Information not available 08/06/2023 What Is Your Level Of Caffeine Consumption? None [email or web address] Information not available 08/06/2023 What Was The Date Of Your Most Recent Tobacco Screening? 08/03/2023 [email or web address] Information not available 08/06/2023 Are You Passively Exposed To Smoke? No [email or web address] Information not available 08/06/2023 How Much Tobacco Do You Smoke? 0.5 PPD [email or web address] Information not available 08/06/2023 Has Tobacco Cessation Counseling Been Provided? No [email or web address] Information not available 08/06/2023 How Many Years Have You Smoked Tobacco? 40 Information not available 08/06/2023 Sex: Unknown Functional Status Question Answer Note LastModified by Organizat ion Details LastModified Time Do you use any illicit or recreational drugs? No [email or web address] Information not available 08/06/2023 Do you or have you ever used any other forms of tobacco or nicotine? No [email or web address] Information not available 08/06/2023 What is your level of alcohol consumption? Moderate Information not available 08/06/2023 Do you or have you ever used smokeless tobacco? Never used smokeless tobacco [email or web address] Information not available 08/06/2023 What is your exercise level? Occasional [email or web address] Information not available 08/06/2023 Mental Status Question Answer Note LastModified by Organization D etails LastModified Time Do you feel stressed (tense, restless, nervous, or anxious, or unable to sleep at night)? [id number] [email or web address] Information not available 08/06/2023 Family History Relationship Description Onset Age of this Age Resolved Age Notes LastModified by Organization Details LastModified Time Father Carcinoma in situ of urinary bladder primar y [email or web address] Not available 08/06/2023 10:25:15 Father Carcinoma of prostate primar y 19 yrs apart from bladde r [email or web address] Not available 08/06/2023 10:25:38 Medical History Condition Response Hypertension Y High Cholesterol Y Past Encounters Encounter ID Performer Location Encounter Start Date Encounter Closed Date Diagnosis/Indication Diagnosis SNOMED-CT Code Diagnosis ICD10 Code Diagnosis Note [id number] Nikko Perales MD [facility] [address] [place] [address] 08/06/2023 10:04:38 08/06/2023 11:18:46 Rectal mass [id number] R19.00 Colonoscop y on July 30, 2023 [...] Hemoglobin 14.9 and hematocrit 44.1. Platelet count 809802. Normal renal function testing with GFR greater [...] Patient has appointmen t with Colorectal surgery [facility]. Will follow-up evaluation . Health Concerns Section Related Observation LastModified by Organization Detai ls LastModified Time None Recorded Concern Status LastModified by Organization Details LastModified Time None Recorded Advance Directives Directive Y: Payers Insurance Date Sequence Insurance Name Policy Number Policy Swenson Covered Member ID Swenson Member ID Guarantor Name 08/06/2023 2 [employer] [place] [id number] [place] 08/09/2024 1 [place] [id number] [place] 08/06/2023 2 [employer] (MEDICARE SUPPLEMENT) [place] [id number] Sal[place]ón [place] 08/17/2024 2 [employer]IGNA SUPPLEMENTAL - [employer] HE[employer] AND LIFE INSURANCE (MEDICARE SUPPLEMENT) [place]ón [place] [id number] Sal[place]ón [place] 07/28/2023 3 CIGNA SUPPLEMENTAL - [facility] (MEDICARE SUPPLEMENT) Sal[place]ón Coll[place] [id number] Sal[place]ón [place] Notes Date Note Type Note [...] Hemoglobin 14.9 and hematocrit 44.1. Platelet count 027633. Normal renal function testing with GFR greater [...] genetic testing. Will follow-up Nikko Perales MD [address], [place], [address], [place] - [facility] - [place] & [place] 08/06/2023 11:18:01
--- OUTSIDE RECORDS SUMMARY | 2024-09-12 18:44 | XMS_ITS | Referral Summary ---
Author Organization [employer] Address [address] [place] [address] Care Team Providers Care Carpet Mechanic Name Role Phone Pilar Alexander APRN Primary Care Provider [phone] Mary Grace Camp MD Unavailable [phone] Allergies No known active allergies Medications [...] Date Todd rded Speak language other than [place]guill[place] at home Not on file 07/31/2023 Want [...] SUPP MEDICARE PART A B Care Teams Carpet Mechanic Relationship Specialty Start Date End Date Pilar Alexander, YING [address] [place] [address] PCP - General Nurse Practitioner 08/01/23 Mary Grace Camp MD [address] [place] [address] Interventional Cardiology 08/01/23
--- OUTSIDE RECORDS SUMMARY | 2024-09-12 18:44 | XMS_ITS | Encounter Summary ---
Author Organization Healthcare Address [address] [place] [address] Care Team Providers Care Vehicle Mechanic Name Role Phone Pilar Alexander Blanca HE Primary Care Provider [phone] Encounter Details Date Type Department Care Team (Late st Contact Info) Description 08/12/2024 Orders Only External Location [address] [place] [address] Yair Akhtar MD [address] [facility] [address] [place] [address] Social History Tobacco Use Types Packs/Day Years [...] place to sleep or slept in a assisted (including now)? No 08/29/2023 CAGE ASSESSMENT Answer [...] drink first t renetta in the morning (EYE-RETAIL ASSISTANT) to steady your nerves or to get [...] documented as of this encounter Care Teams Vehicle Mechanic Relationship Specialty Start Date End Date Pilar Alexander APRN [address] [place] [address] PCP - General 03/31/23 documented as of this encounter
--- OUTSIDE RECORDS SUMMARY | 2024-09-12 18:44 | XMS_ITS | Encounter Summary ---
Author Organization Healthcare Address [address] [place] [address] Care Team Providers Care Director Print Name Role Phone Pilar Alexander APRN Primary Care Provider +1- [phone] Encounter Details Date Type Department Care Team (Late st Contact Info) Description 08/08/2023 Lab Requisition [facility] [address] [place] [address] Yair Akhtar MD [address] [facility] [address] [place] [address] Melena Social History Tobacco Use Types Packs/Day [...] EDT) Case Report Sug[facility] Pathology Consult Case: [id number] Authorizing Provider: Yair Akhtar MD Collected: 08/08/2023 1308 Ordering Location: [facility] Received: 08/08/2023 1308 Pathologist: Ora Alegria MD Specimen: Colon, [id number] 10:24 AM EDT [facility] Final Diagnosis LARGE INTESTINE, MASS AT 20 CM, BIOPSY (OUTSIDE CASE [id number]; COLLECTED ON 07/30/2023): - MOST CONSISTENT WITH ADENOCARCINOMA (SEE COMMENT). 10:24 AM EDT [facility] at 1024 EDT Comment Radiology study at outside hospital showed a 2.7 x 2.6 cm mass in the sigmoid colon (at 20 cm area). Therefore, the overall findings are most consistent with adenocarcinoma and segmental sigmoid colon resection is recommended 10:24 AM EDT [facility] Clinical Information K92.1 - Melena [ICD-10-CM] 10:24 AM EDT [facility] Gross Description A. [id number] Received along with a corresponding pathology report from [facility] is 1 slide labeled outside case: [id number] collected on 07/30/2023. 10:24 AM EDT [facility] Intradepartmental Consultation with Agreement Dr. Sloan has seen the case and concurs with the diagnosis. 10:24 AM EDT [facility] Note: A resident was involved in the service. I attest I examined the relevant preparations for the specimens and confirmed the diagnosis or interpretation. 10:24 AM EDT [facility] Tissue Colon structure / Unknown 08/08/2023 1:08 PM EDT 08/08/2023 1:08 PM EDT us Yair Akhtar MD LAB PATHOLOGY ORDERABLES Final Result [facility] [address] [place] [address] documented in this encounter Visit Diagnoses Diagnosis Melena Blood in stool documented in this encounter Care Teams Director Print Relationship Specialty Start Date End Date Pilar Alexander APRN [address] [place] [address] PCP - General 03/31/23 documented as of this encounter
--- OUTSIDE RECORDS SUMMARY | 2024-09-12 18:44 | XMS_ITS ---
Laboratory report Created on: September 10, 2024 MICHAEL MARQUEZ : 1955 Sex: Male Author Organization Unknown PROBLEMS Problems List Code Description RESULTS Laboratory Orders Date Order Code Test 2024-09-05 [id number] LYME DISEASE SER OLOGY W/REFLEX 2024-09-05 [id number] LYME (B. BURGDOR FERI) PCR Laboratory Results Date LOINC Test Value Unit Reference Range Interpre tation 2024-09-05 95260-6 [facility] TOTAL ANTIBODY DENISSE N NEGAT KAYCEE 2024-09-05 4991-6 LYME (B BURGDORFERI) PCR N NEGA TIVE
--- OUTSIDE RECORDS SUMMARY | 2024-09-12 18:44 | XMS_ITS | Encounter Summary ---
Author Organization [facility] Address [address] [place] [address] Care Team Providers Care Tailor Garment Fitter Name Role Phone Pilar Alexander APRN Primary Care Provider +1- [phone] Reason for Referral * Consultation (Routine) - Closed Specialty Diagnoses / Procedures Referred By Alejandra jaquez Referred To Contact Surgical Oncology / Hematology and Oncology Diagnoses Colonic mass Nikko Perales MD [address] [facility] [place] [address] Phone: tel: fax: Referral ID Status Reason Start Date Expiration Date V isits Requested Visits Authorized [id number] Closed Specialty Services Required 08/04/2023 02/02/2025 1 1 Encounter Details Date Type Department Care Team (Late st Contact Info) Description 08/04/2023 Community Orders [facility] [address] [place] [address] Nikko Perales MD [address] [facility] [place], [place] [id number] Colonic mass (Primary Dx) Social History Tobacco [...] Primary documented in this encounter Care Teams Tailor Garment Fitter Relationship Specialty Start Date End Date Pilar Alexander APRN [address] [id number] PCP - General 03/31/23 documented as of this encounter
--- NOTE | 2024-09-12 18:45 | ECG_ITS ---
APPROVED REPORT Exam: Resting ECG HR:76 bpm ECG Measurements Heart Rate 76 AXES QRSd 124 QRS 47 QT 386 T 180 QTc 416 Conclusion Atrial flutter with variable block CONDUCTION DELAY [110+ ms QRS DURATION] ST DEVIATION AND MODERATE T-WAVE ABNORMALITY, CONSIDER LATERAL ISCHEMIA [-0.1+ mV T-WAVE IN I/aVL/V5/V6] Electronically signed by : CHASE HAYS, 09/13/2024 07:01:35
--- NOTE | 2024-09-12 19:06 | XR_ITS ---
PROCEDURE INFORMATION: Exam: XR Chest Exam date and time: 09/12/2024 7:06 PM Age: 69 years old Clinical indication: Shortness of breath; Additional info: SOA, dizziness TECHNIQUE: Imaging protocol: Radiologic exam of the chest. Views: 2 views. COMPARISON: CT ANGIO CHEST PE PROTOCOL 09/06/2024 9:14 AM FINDINGS: Lungs: Unremarkable. No consolidation. Pleural spaces: Unremarkable. No pleural effusion. No pneumothorax. Heart/Mediastinum: Unremarkable. No cardiomegaly. Bones/joints: Unremarkable. IMPRESSION: No acute findings.
--- NOTE | 2024-09-12 19:11 | HMH.EDCP ---
Discharge Plan Disposition Patient Disposition: Home, Self-Care Prescriptions Prescriptions: No Action metoprolol succinate 50 mg tablet extended release 24 hr 50 mg PO DAILY Patient Comments: TAKE 1 TABLET BY MOUTH ONCE DAILY atorvastatin 40 mg tablet 40 mg PO DAILY apple cider vinegar 300 mg tablet 300 mg PO DAILY coenzyme Q10 200 mg capsule 200 mg PO DAILY cholecalciferol (vitamin D3) 25 mcg (1,000 unit) capsule 25 mcg PO DAILY omega 2-fht-mpa-fish oil [Fish Oil] 60-90-500 mg capsule 1 cap PO DAILY losartan 50 mg tablet 50 mg PO DAILY Qty: 90 2RF cetirizine 10 mg tablet 10 mg PO DAILY Patient Comments: TAKE 1 TABLET BY MOUTH ONCE DAILY famotidine 20 mg tablet 20 mg PO BID hydroxyzine HCl 25 mg tablet 25 mg PO Q8H Patient Comments: TAKE 1 TABLET BY MOUTH EVERY 8 HOURS spironolactone 25 mg Tablet 25 mg PO DAILY 30 Days Qty: 30 0RF bumetanide 2 mg tablet 2 mg PO DAILY Qty: 30 0RF dapagliflozin propanediol [Farxiga] 10 mg tablet 10 mg PO DAILY Qty: 30 0RF doxycycline hyclate 100 mg Tablet 100 mg PO BID 6 Days Qty: 12 0RF Eliquis 5 mg tablet 5 mg PO BID Qty: 60 0RF Referrals Follow up/Referrals: Pilar Alexander APRN [Primary Care Provider, Medical] - See instructions Activity Restrictions/Add. Instructions Additional Instructions/Restrictions: Call your family doctor to establish care for this visit to the emergency department and schedule follow-up within 48 hours to ensure improvement. If you have any worsening of your condition or any other concerning signs or symptoms, return to the emergency department or your primary care doctor for further evaluation. Bumex is the medication I want you to take as needed (bumetanide, fluid medication). Do daily weigh-ins, as discussed. When you are feeling well, at your baseline, wake up, use the bathroom, weigh yourself naked with no clothes on. Do this every single day. When you are feeling at your baseline, consider this your dry weight. Continue weighing yourself naked every single morning after waking up and using the bathroom. If you notice your dry weight increases by 5 pounds, you can begin taking Bumex each morning until your weight approaches your dry weight again. If your weight decreases by 5 pounds, call your family doctor and tell them you would like to have labs drawn to look at your kidney function. Clinical Impressions Clinical Impression: AUGIE (acute kidney injury), Light-headedness, Acute dehydration Print Language Print Language: French Discharge ED Provider: Alonso Patterson HPI General Chief Complaint: Shortness of Breath/Dyspnea Stated Complaint: SOA,dizzy Time Seen by Provider: 09/12/24 18:37 Mode of Arrival: Ambulatory Source of Information: Patient Description of Symptoms (Recalled from ER Triage Doc. by RN): Patient states that he is here because he is feeling short of breath and dizzy. Patient was seen here last weekend for similar complaint, states he was admitted for A-Fib, was discharged on Friday09/06/24 and then on Friday09/08/24 he started feeling bad again. Supposed to follow up with student advisor but he hasn't. History of Present Illness HPI narrative: Please note that above description of symptoms, in this electronic medical record under categorization of recalled from ER triage doctor by RN are reflective of an initial nursing assessment, however, is not reflective of my full history and physical exam that was personally taken and clarified. Consequentially, this preceding description of symptoms, which may include the patient's categorized chief complaint in the EMR, do not reflect my personal clinical impression, and the ultimate description of history of present illness and patient stated complaints should be deferred to this section of the note. Unless stated otherwise or congruent with this section of the note, additional signs, symptoms, or incongruence should be interpreted as inaccurate with my clinical impression. Related Data Home Medications ?Medication ?Instructions ?Recorded ?Confirmed apple cider vinegar 300 mg tablet 300 mg PO DAILY 03/03/23 09/05/24 atorvastatin 40 mg tablet 40 mg PO DAILY 03/03/23 09/05/24 coenzyme Q10 200 mg capsule 200 mg PO DAILY 03/03/23 09/05/24 cholecalciferol (vitamin D3) 25 25 mcg PO DAILY 07/14/23 09/05/24 mcg (1,000 unit) capsule metoprolol succinate 50 mg 50 mg PO DAILY 01/12/24 09/05/24 tablet,extended release 24 hr omega 1-ixr-aff-fish oil 60 mg-90 1 cap PO DAILY 04/02/24 09/05/24 mg-500 mg capsule (Fish Oil) cetirizine 10 mg tablet 10 mg PO DAILY 09/05/24 09/05/24 famotidine 20 mg tablet 20 mg PO BID 09/05/24 09/05/24 hydroxyzine HCl 25 mg tablet 25 mg PO Q8H 09/05/24 09/05/24 Previous Rx's ?Medication ?Instructions ?Recorded losartan 50 mg tablet 50 mg PO DAILY #90 tabs 01/13/24 apixaban 5 mg tablet (Eliquis) 5 mg PO BID #60 tabs 09/06/24 bumetanide 2 mg tablet 2 mg PO DAILY #30 tabs 09/06/24 dapagliflozin propanediol 10 mg 10 mg PO DAILY #30 tabs 09/06/24 tablet (Farxiga) doxycycline hyclate 100 mg tablet 100 mg PO BID 6 days #12 tabs 09/06/24 spironolactone 25 mg tablet 25 mg PO DAILY 30 days #30 tabs 09/06/24 Allergies Allergy/AdvReac Type Severity Reaction Status Date / Time No Known Allergies Allergy Verified 09/12/24 18:48 [facility] Disclaimer: The information contained in this section may have been updated after the patient was seen, as this information can be updated by other users. Medical History Hyperlipidemia Hypertension Prostate cancer Surgical History History of prostate surgery Hx of heart surgery Social History Smoking Status: Former smoker tobacco type: cigarettes alcohol intake: current alcohol intake frequency: 3 or more drinks per day current occupational status: retired Travel in the last 8 weeks?: None Have you lived/traveled outside US in past 30 days?: No Contact w/someone who lives/traveled outside US past 30 days?: No Exposure to someone with infectious disease in past 14 days?: No Do you have a fever (greater than 100.4 F or 38 C)?: No Have you tested positive for COVID-19?: No Exposed to someone with COVID-19 in past 14 days?: No Do you have a sore throat?: No Do you have a cough?: No Do you have any weakness?: No Do you have any diarrhea?: No Are you experiencing any unusual bleeding?: No Do you have any muscle aches/pain?: No Do you have any abdominal pain?: No Are you experiencing loss of taste or smell?: No Other Medical History Have you received the Flu Vaccine for this season: No Have you received the Pneumonia Vaccine: No ROS Obtained: Yes All systems reviewed & no additional complaints except as documented Physical Exam General General appearance: alert and in no apparent distress Neck Neck exam: Present trachea midline Chest Chest inspection: Present normal inspection and symmetric chest wall rise Respiratory Respiratory exam: Present normal lung sounds bilaterally; Absent respiratory distress, wheezes, stridor, accessory muscle use or prolonged expiratory phase Cardiovascular Cardiovascular exam: Present regular rate, normal rhythm and other (Pulses equal and symmetric in upper and lower extremities) Extremities Exam Extremities exam: Absent edema Neurological Exam Neurological exam: Present alert, oriented X3 and CN II-XII intact Skin Skin exam: Present warm and dry; Absent cyanosis, diaphoresis or pallor HEART Score HEART Score HEART Score assessment performed?: Yes History (anamnesis): Slightly suspicious ECG: Normal Age: >65 years Risk factors: 3 or more risk factors Troponin: </= normal limit HEART Score: 4 Critical Care Critical Care Time Critical Care Time: No Medical Decision Making Medical Records Medical records reviewed: Yes I reviewed the patient's medical records. Alvin Inquiry Pt receiving controlled substance: No Alvin was queried for this patient: No Vital Signs Vital Signs: 09/12/24 18:42 09/12/24 19:02 09/12/24 19:14 Temperature 98.2 F Temperature Source Oral Pulse Rate 69 81 Pulse Rate [Right Radial] 74 Respiratory Rate 18 Blood Pressure 203/171 H 95/58 L Blood Pressure [Right Arm] 188/128 H Blood Pressure Mean 63 Blood Pressure Mean [Right Arm] 148 Blood Pressure Source [Right Arm] Automatic Cuff Blood Pressure Position Blood Pressure Position [Right Arm] Sitting 02 Sat by Pulse Oximetry 99 81 L 98 Oxygen Delivery Method Room Air 09/12/24 19:30 09/12/24 19:47 09/12/24 20:00 Temperature 98.0 F Temperature Source Pulse Rate 83 71 Pulse Rate [Right Radial] Respiratory Rate 16 16 16 Blood Pressure 94/66 L 99/71 L 106/49 L Blood Pressure [Right Arm] Blood Pressure Mean 75 75 71 Blood Pressure Mean [Right Arm] Blood Pressure Source [Right Arm] Blood Pressure Position Blood Pressure Position [Right Arm] 02 Sat by Pulse Oximetry 98 96 94 L Oxygen Delivery Method 09/12/24 20:30 09/12/24 20:36 Temperature 98.0 F Temperature Source Oral Pulse Rate 70 70 Pulse Rate [Right Radial] Respiratory Rate 16 16 Blood Pressure 100/66 L 100/66 L Blood Pressure [Right Arm] Blood Pressure Mean 74 Blood Pressure Mean [Right Arm] Blood Pressure Source [Right Arm] Blood Pressure Position Supine Blood Pressure Position [Right Arm] 02 Sat by Pulse Oximetry 98 Oxygen Delivery Method Room Air Lab Data Labs: Lab Results 09/12/24 18:53: WBC 9.9, RBC 3.78 L, Hgb 11.8 L, Hct 34.6 L, MCV 91.5, MCH 31.2, MCHC 34.1, RDW 12.2, Plt Count 269, MPV 9.4, Neut % (Auto) 53.6, Lymph % (Auto) 29.9, Early % (Auto) 12.2 H, Eos % (Auto) 2.3, Baso % (Auto) 1.0, Neut # (Auto) 5.3, Lymph # (Auto) 3.0, Early # (Auto) 1.2 H, Eos # (Auto) 0.2, Baso # (Auto) 0.1, Sodium 132 L, Potassium 4.9, Chloride 98, Carbon Dioxide 20 L, Anion Gap 18.9 H, BUN 47 H, Creatinine 1.50 H, Estimated Creat Clear 59, Estimated GFR 47 L, Est GFR ( Amer) 56 L, Glucose 228 H, Calcium 9.3, Total Bilirubin 0.7, AST 48, ALT 64, Alkaline Phosphatase 83, Troponin I 0.02, NT-Pro-B Natriuret Pep 1580 H, Total Protein 6.8, Albumin 4.3, Globulin 2.5, Albumin/Globulin Ratio 1.7 09/12/24 18:53 09/12/24 18:53 Response Orders (Tests/Meds): ED MEDICATIONS Discontinued Medications Generic Name Dose Route Start Last Admin Trade Name Freq PRN Reason Stop Dose Admin Irbesartan 75 mg 09/12/24 19:18 09/12/24 20:34 Irbesartan 75mg Tablet PO 09/12/24 19:19 Not Given ONCE ONE ORDERS Category Date Time Status CXR 2 view (NOT portable) [XR chest 2V] Stat Exams 09/12/24 19:06 Taken CBC w/Auto Diff [Complete Blood Count Auto Diff] Stat Lab 09/12/24 18:53 Completed CMP [Comprehensive Metabolic Panel] Stat Lab 09/12/24 18:53 Completed NT Pro Brain Natriuretic Pep. Stat Lab 09/12/24 18:53 Completed Trop I [Troponin I] Stat Lab 09/12/24 18:53 Completed Troponin I Q3H Lab 09/12/24 22:15 Ordered Troponin I Q3H Lab 09/13/24 01:15 Ordered MDM Narrative Medical Decision Narrative: 69-year-old male presenting with hypertension and dizziness. Patient was just discharged a few days prior to this for acute onset CHF and new onset A-fib. Started on multiple blood pressure medications, as well as Eliquis. States that basically since discharge he has been feeling intermittently lightheaded, dizzy, worse with exertion. No chest pain, nausea, vomiting, diaphoresis, syncopal episodes, presyncope, vision changes, strokelike symptoms, or any other concerns. Just states that he is exertionally short of breath which has been persistent, but he thought it would get better after diuresis in the hospital. Came in for further evaluation. Patient does have a history of CAD status post CABG, hypertension, hyperlipidemia, atrial fibrillation on Eliquis. History was obtained via conversation with patient and chart review, family. On arrival, patient hemodynamically stable, alert, oriented x4, appropriate, GCS 15, moving all extremities spontaneously, pupils equal and reactive to light. Full physical exam performed and significant for well-appearing male no acute distress. He is hypertensive, but speaking full sentences. Lungs are clear bilaterally anterior and posterior. Cardiac exam with right upper sternal border murmur radiating to the carotids consistent with aortic stenosis. No lower extremity edema. Pulses equal and symmetric in upper and lower extremities. Grossly neurologically intact. Differential includes hypertensive urgency, ACS, RI, CAD, arrhythmia, metabolic abnormality, endocrinologic abnormality, among others. Patient was given irbesartan 75 mg for symptomatic management and correction of underlying abnormalities. Patient placed on continuous cardiac monitoring and continuous pulse ox with initial blood pressure 188/128, heart rate 74, saturation 99% on room air. Independent interpretation of EKG shows A-fib 76 bpm with QRS 124, QTc 416. Normal axis and no acute ischemic change. Stable from previous EKG. Workup independently interpreted and significant for nonactionable CBC. Chemistry with mild hyponatremia and AUGIE creatinine 1.5. BUN downtrending, troponin negative. Patient was p.o. challenged successfully. On independent interpretation of imaging, no acute cardiopulmonary space disease on chest x-ray. Improved from previous. See radiology read for full review of final results. Heart score 4. On reevaluation, patient states he feels well, no acute complaints, but intermittently still feeling lightheaded. Given patient's labs, I feel he is likely being over diuresed. Significant decrease in BNP as well as current AUGIE, would like to see the patient is followed up outpatient and taking diuretics as needed. Daily weights was discussed with patient and he voiced his understanding. Has follow-up on Friday with PCP on Friday with cardiology, I feel this is appropriate. Given patient presentation, workup, history, this most likely represents overdiuresis, lightheadedness in the setting of CHF. Because patient at baseline without signs or symptoms of clinical decompensation, deemed appropriate for discharge. Results were relayed to patient who voiced understanding and were agreeable to outpatient management and follow up. I discussed my clinical impression with patient and answered all questions. At this time, the evidence for any other entities in the differential is insufficient to warrant any further testing or ED observation. This was explained as well. Advisory was given that persistent or worsening symptoms require further evaluation. I confirmed the understanding of this discussion. Account Support Analyst disclaimer Much of this encounter note is an electronic photographer helper spoken language to printed text. Electronic photographer helper of the spoken language may permit errors. Although I have reviewed the note, some errors may still exist.
[2024-09-12 19:13] LABS: Basophils # 0.1 K/mm3 (0-0.2); Eosinophils # 0.2 Kmm3 (0.0-0.4); Eosinophils % 2.3 % (0.1-12.0); Hematocrit 34.6 % (42.0-52.0); Hemoglobin 11.8 g/dL (14.1-18.0); Lymphocytes % 29.9 % (10-50); Mean Corpuscular HGB Conc 34.1 g/dL (31.8-35.4); Mean Corpuscular Hemoglobin 31.2 pg (27.0-31.2); Mean Corpuscular Volume 91.5 fl (80-94); Mean Platelet Volume 9.4 fl (7.4-10.4); Monocytes # 1.2 K/mm3 (0.1-1.0); Monocytes % 12.2 % (1.7-9.3); Neutrophils # 5.3 K/mm3 (1.8-7.8); Neutrophils % 53.6 % (37.0-80.0); Nucleated Red Blood Cells # 0 10^3/uL; Nucleated Red Blood Cells % 0 %; Platelet Count 269 K/mm3 (142-424); Red Blood Count 3.78 M/mm3 (4.60-6.20); Red Cell Distribution Width 12.2 % (11.5-17.5); Red Cell Distribution Width-SD 41.1 fL; White Blood Count 9.9 K/mm3 (4.8-10.8)
[2024-09-12 19:16] LABS: Albumin Level 4.3 g/dl (3.5-5.0); Chloride 98 mmol/L (98-107); Potassium 4.9 mmoL/L (3.5-5.1); Sodium 132 mmol/L (136-145)
[2024-09-12 19:19] LABS: Alanine Aminotransferase 64 U/L (12-78); Albumin/Globulin Ratio 1.7 (1.1-1.8); Alkaline Phosphatase 83 U/L (38-126); Anion Gap 18.9 mEq/L (5-15); Aspartate Amino Transferase 48 U/L (17-59); Bilirubin,Total 0.7 mg/dl (0.2-1.3); Blood Urea Nitrogen 47 mg/dl (9-20); Calcium 9.3 mg/dl (8.4-10.2); Carbon Dioxide 20 mmol/L (22.0-30.0); Creatinine Clearance Estimated 59 mL/min (50-200); Estimated Glomerular Filt Rate 47 ml/min (>60); GFR (African American) 56 ML/MIN (>60); Globulin 2.5 g/dL (1.3-3.2); Glucose 228 mg/dl (74-100); Total Protein,Serum 6.8 g/dl (6.3-8.2)
[2024-09-12 19:29] LABS: NT Pro Brain Natriuretic Pep. 1580 pg/mL (0-125)
[2024-09-12 19:31] LABS: Troponin I 0.02 ng/ml (0.00-0.034)
== END 2024-09-12 21:11 | disposition home or self-care (01) ==
PROVIDERS: Emergency Provider Emergency Medicine; PCP Nurse Practitioner Family
DX: N17.9 Acute kidney failure, unspecified (principal); R42 Dizziness and giddiness; E86.0 Dehydration; Z87.891 Personal history of nicotine dependence
CPT/HCPCS: 71046; 80053; 83880; 84484; 85025; 93005; 99285

== ENCOUNTER 2024-09-14 10:39 | Outpatient (CLI) | payer MEDICARE, OTHER, SELFPAY ==
[2024-09-14 17:30] LABS: Albumin Level 4.2 g/dl (3.5-5.0); Carbon Dioxide 23 mmol/L (22.0-30.0)
[2024-09-14 17:39] LABS: Alanine Aminotransferase 47 U/L (12-78); Albumin/Globulin Ratio 1.7 (1.1-1.8); Alkaline Phosphatase 105 U/L (38-126); Anion Gap 14.3 mEq/L (5-15); Aspartate Amino Transferase 27 U/L (17-59); Bilirubin,Total 0.9 mg/dl (0.2-1.3); Blood Urea Nitrogen 43 mg/dl (9-20); Calcium 10.2 mg/dl (8.4-10.2); Chloride 102 mmol/L (98-107); Estimated Glomerular Filt Rate 60 ml/min (>60); GFR (African American) 73 ML/MIN (>60); Globulin 2.5 g/dL (1.3-3.2); Glucose 171 mg/dl (74-100); Sodium 133 mmol/L (136-145); Total Protein,Serum 6.7 g/dl (6.3-8.2)
[2024-09-14 18:37] LABS: Potassium 6.3 mmoL/L (3.5-5.1)
--- OUTSIDE RECORDS SUMMARY | 2024-09-15 10:42 | XMS_ITS | Encounter Summary ---
Author Organization Healthcare Address [address] [place] [address] Care Team Providers Care Entertainment Centre Manager Name Role Phone Pilar Alexander APRN Primary Care Provider +1- [phone] Encounter Details Date Type Department Care Team (Late st Contact Info) Description 08/08/2023 Lab Requisition [facility] [address] [place] [address] Yair Akhtar MD [address] [facility] [address] [place] [address] Melena Social History Tobacco Use Types Packs/Day [...] EDT) Case Report Sugical Pathology Consult Case: [id number] Authorizing Provider: Yair Akhtar MD Collected: 08/08/2023 1308 Ordering Location: [facility] Received: 08/08/2023 1308 Pathologist: Ora Alegria MD Specimen: Colon, [id number] 10:24 AM EDT [facility] Final Diagnosis LARGE INTESTINE, MASS AT 20 CM, BIOPSY (OUTSIDE CASE [id number]; COLLECTED ON 07/30/2023): - MOST CONSISTENT WITH ADENOCARCINOMA (SEE COMMENT). 10:24 AM EDT [facility] at 1024 EDT Comment Radiology study at outside hospital showed a 2.7 x 2.6 cm mass in the sigmoid colon (at 20 cm area). Therefore, the overall findings are most consistent with adenocarcinoma and segmental sigmoid colon resection is recommended 10:24 AM EDT [facility] Clinical Information K92.1 - Melena [ICD-10-CM] 10:24 AM EDT [facility] Gross Description A. [id number] Received along with a corresponding pathology report from [facility] is 1 slide labeled outside case: [id number] collected on 07/30/2023. 10:24 AM EDT [facility] Intradepartmental Consultation with Agreement Dr. Sloan has seen the case and concurs with the diagnosis. 10:24 AM EDT [facility] Note: A resident was involved in the service. I attest I examined the relevant preparations for the specimens and confirmed the diagnosis or interpretation. 10:24 AM EDT [facility] Tissue Colon structure / Unknown 08/08/2023 1:08 PM EDT 08/08/2023 1:08 PM EDT us Yair Akhtar MD LAB PATHOLOGY ORDERABLES Final Result [facility] [address] [place] [address] documented in this encounter Visit Diagnoses Diagnosis Melena Blood in stool documented in this encounter Care Teams Entertainment Centre Manager Relationship Specialty Start Date End Date Pilar Alexander APRN [address] [place] [address] PCP - General 03/31/23 documented as of this encounter
--- OUTSIDE RECORDS SUMMARY | 2024-09-15 10:43 | XMS_ITS | Encounter Summary ---
Author Organization [facility] Address [address] [place] [address] Care Team Providers Care Drum Cleaner Name Role Phone Pilar Alexander APRN Primary Care Provider +1- [phone] Reason for Referral * Consultation (Routine) - Closed Specialty Diagnoses / Procedures Referred By Alejandra jaquez Referred To Contact Surgical Oncology / Hematology and Oncology Diagnoses Colonic mass Nikko Perales MD [address] [facility] [place] [address] Phone: tel: fax: Referral ID Status Reason Start Date Expiration Date V isits Requested Visits Authorized [id number] Closed Specialty Services Required 08/04/2023 02/02/2025 1 1 Encounter Details Date Type Department Care Team (Late st Contact Info) Description 08/04/2023 Community Orders Community Practice [address] [place] [address] Nikko Perales MD [address] [facility] [place], [place] [id number] Colonic mass (Primary Dx) Social History Tobacco [...] Primary documented in this encounter Care Teams Drum Cleaner Relationship Specialty Start Date End Date Pilar Alexander APRN [address] [id number] PCP - General 03/31/23 documented as of this encounter
--- OUTSIDE RECORDS SUMMARY | 2024-09-15 10:43 | XMS_ITS | Clinical Summary ---
Author Organization Healthcare Address [address] [place] [address] Care Team Providers Care Clinical Statistics Manager Name Role Phone Pilar Alexander YING Primary Care Provider +1- [phone] Allergies No known active allergies Medications atorvastatin [...] Description 08/12/2024 Orders Only External Location [address] [place] [address] Yair Akhtar MD 08/12/2024 Orders Only External Location [address] [place] [address] Yair Akhtar MD from Last 3 Months [...] place to sleep or slept in a custodial (including now)? No 08/29/2023 CAGE ASSESSMENT Answer [...] drink first t renetta in the morning (EYE-PHYSICAL THERAPIST TECHNICIAN) to steady your nerves or to get rid of a hangover? 0 08/28/2023 CAGE Questionnaire Score 0 024 Utilities Answer Date Recorded In the past 12 months has e [email or web address], gas, oil, or water [employer] threatened to shut off services in your [...] Wellness (AWV) 1955 [facility]-/Child/Adol SDOH Screenings 1955 [id number] Vaccine (#1) 1962 [facility]- SDOH Screenings 1975 [...] Most Recently Relevant to Health Maintenance Insurance [facility] [address] [id number] [place] [address] [facility] Directives * Full Code (Latest Code Status on File) Date Activated Date Inactivated Comments 08/28/2023 5:05 PM 08/31/2023 7:45 PM Question Answer Comments Patient has decision-making capacity? Yes Care Teams Clinical Statistics Manager Relationship Specialty Start Date End Date Pilar Alexander APRN [address] [place] [address] PCP - General 03/31/23
--- OUTSIDE RECORDS SUMMARY | 2024-09-15 10:43 | XMS_ITS | Encounter Summary ---
Author Organization Healthcare Address [address] [place] [address] Care Team Providers Care Property Management Intern Name Role Phone Pilar Alexander Blanca HE Primary Care Provider +1- [phone] Encounter Details Date Type Department Care Team (Late st Contact Info) Description 08/12/2024 Orders Only External Location [address] [place] [address] Yair Akhtar MD [address] [facility] [address] [place] [address] Social History Tobacco Use Types Packs/Day Years [...] drink first t renetta in the morning (EYE-ANALYSIS OR RESEARCH SAFETY INSPECTOR) to steady your nerves or to get [...] documented as of this encounter Care Teams Property Management Intern Relationship Specialty Start Date End Date Pilar Alexander APRN [address] [place] [address] PCP - General 03/31/23 documented as of this encounter
--- OUTSIDE RECORDS SUMMARY | 2024-09-15 10:43 | XMS_ITS | Encounter Summary ---
Author Organization Healthcare Address [address] [place] [address] Care Team Providers Care General Operations Agent Name Role Phone Pilar Alexander Blanca HE Primary Care Provider +1- [phone] Encounter Details Date Type Department Care Team (Late st Contact Info) Description 08/12/2024 Orders Only External Location [address] [place] [address] Yair Akhtar MD [address] [facility] [address] [place] [address] Social History Tobacco Use Types Packs/Day Years [...] place to sleep or slept in a half-way (including now)? No 08/29/2023 CAGE ASSESSMENT Answer [...] drink first t renetta in the morning (EYE-ELECTRONIC PREPRESS SYSTEM OPERATOR) to steady your nerves or to [...] documented as of this encounter Care Teams General Operations Agent Relationship Specialty Start Date End Date Pilar Alexander APRN [address] [place] [address] PCP - General 03/31/23 documented as of this encounter
== END 2024-09-14 23:59 | disposition home or self-care (01) ==
LOC: LAB.DROPOF 09-15 10:38
PROVIDERS: PCP Nurse Practitioner Family; Visit Provider Nurse Practitioner Family
DX: N17.9 Acute kidney failure, unspecified (principal)
CPT/HCPCS: 80053

== ENCOUNTER 2024-09-14 19:11 | Emergency (ER) | payer MEDICARE, OTHER, SELFPAY ==
--- NOTE | 2024-09-14 19:18 | ECG_ITS ---
APPROVED REPORT Exam: Resting ECG HR:75 bpm ECG Measurements Heart Rate 75 AXES QRSd 117 QRS 50 QT 374 T 191 QTc 402 Conclusion Atrial fibrillation versus flutter ST depressions in septal, lateral, and inferior leads without reciprocal elevation Stable from previous ECGs Electronically signed by : BERNY HUGHES, 09/21/2024 07:42:28
[2024-09-14 19:26] VITALS: BP 139/88; PULSE 73; RESP 20; TEMP 36.8; O2SAT 98; BMI 29.2
[2024-09-14 19:31] VITALS: BP 128/74; PULSE 83; RESP 15; O2SAT 99
--- NOTE | 2024-09-14 19:32 | PC.NURSE ---
Pt awake alert and oriented Pt has generalized rash that is chronic. Skin pink warm and dry Resp full and easy Speech clear and appropriate. at bedside IV site without redness or edema Md at bedside
[2024-09-14 19:35] LABS: Basophils # 0.1 K/mm3 (0-0.2); Basophils % 0.6 % (0.1-2.0); Eosinophils # 0.3 Kmm3 (0.0-0.4); Eosinophils % 2.7 % (0.1-12.0); Hematocrit 31.8 % (42.0-52.0); Hemoglobin 10.8 g/dL (14.1-18.0); Immature Granulocytes % 0.9 %; Lymphocytes # 2.8 K/mm3 (0.7-4.5); Lymphocytes % 24.3 % (10-50); Mean Corpuscular Hemoglobin 31.2 pg (27.0-31.2); Mean Corpuscular Volume 91.9 fl (80-94); Mean Platelet Volume 9.6 fl (7.4-10.4); Monocytes # 0.8 K/mm3 (0.1-1.0); Monocytes % 7.2 % (1.7-9.3); Neutrophils # 7.5 K/mm3 (1.8-7.8); Neutrophils % 64.3 % (37.0-80.0); Nucleated Red Blood Cells # 0 10^3/uL; Nucleated Red Blood Cells % 0 %; Platelet Count 327 K/mm3 (142-424); Red Blood Count 3.46 M/mm3 (4.60-6.20); Red Cell Distribution Width 12.6 % (11.5-17.5); Red Cell Distribution Width-SD 41.6 fL; White Blood Count 11.6 K/mm3 (4.8-10.8)
--- NOTE | 2024-09-14 19:35 | PC.NURSE ---
Pt in atrial fibrillation per continuous heart monitor
--- OUTSIDE RECORDS SUMMARY | 2024-09-14 19:39 | XMS_ITS | Encounter Summary ---
Author Organization Healthcare Address [address] [place] [address] Care Team Providers Care Vp Talent Management Name Role Phone Pilar Alexander APRN Primary Care Provider +1- [phone] Encounter Details Date Type Department Care Team (Late st Contact Info) Description 08/08/2023 Lab Requisition [facility] [address] [place] [address] Yair Akhtar MD [address] [facility] [address] [place] [address] Melena Social History Tobacco Use Types Packs/Day [...] EDT) Case Report Sugical Pathology Consult Case: [id number] Authorizing Provider: Yair Akhtar MD Collected: 08/08/2023 1308 Ordering Location: [facility] Received: 08/08/2023 1308 Pathologist: Ora Alegria MD Specimen: Colon, [id number] 10:24 AM EDT [facility] Final Diagnosis LARGE INTESTINE, MASS AT 20 CM, BIOPSY (OUTSIDE CASE [id number]; COLLECTED ON 07/30/2023): - MOST CONSISTENT WITH ADENOCARCINOMA (SEE COMMENT). 10:24 AM EDT [facility] at 1024 EDT Comment Radiology study at outside hospital showed a 2.7 x 2.6 cm mass in the sigmoid colon (at 20 cm area). Therefore, the overall findings are most consistent with adenocarcinoma and segmental sigmoid colon resection is recommended 10:24 AM EDT [facility] Clinical Information K92.1 - Melena [ICD-10-CM] 10:24 AM EDT [facility] Gross Description A. [id number] Received along with a corresponding pathology report from [facility] is 1 slide labeled outside case: [id number] collected on 07/30/2023. 10:24 AM EDT [facility] Intradepartmental Consultation with Agreement Dr. Sloan has seen the case and concurs with the diagnosis. 10:24 AM EDT [facility] Note: A resident was involved in the service. I attest I examined the relevant preparations for the specimens and confirmed the diagnosis or interpretation. 10:24 AM EDT [facility] Tissue Colon structure / Unknown 08/08/2023 1:08 PM EDT 08/08/2023 1:08 PM EDT us Yair Akhtar MD LAB PATHOLOGY ORDERABLES Final Result [facility] [address] [place] [address] documented in this encounter Visit Diagnoses Diagnosis Melena Blood in stool documented in this encounter Care Teams Vp Talent Management Relationship Specialty Start Date End Date Pilar Alexander APRN [address] [place] [address] PCP - General 03/31/23 documented as of this encounter
--- OUTSIDE RECORDS SUMMARY | 2024-09-14 19:39 | XMS_ITS | Encounter Summary ---
Author Organization Healthcare Address [address] [place] [address] Care Team Providers Care Presidential Helicopter Crew Chief Name Role Phone Pilar Alexander Blanca HE Primary Care Provider +1- [phone] Encounter Details Date Type Department Care Team (Late st Contact Info) Description 08/12/2024 Orders Only External Location [address] [place] [address] Yair Akhtar MD [address] [facility] [address] [place] [address] Social History Tobacco Use Types Packs/Day Years [...] drink first t renetta in the morning (EYE-MOLDER SWEEP) to steady your nerves or to get [...] as of this encounter Care Teams Presidential Helicopter Crew Chief Relationship Specialty Start Date End Date Pilar Alexander APRN [address] [place] [address] PCP - General 03/31/23 documented as of this encounter
--- OUTSIDE RECORDS SUMMARY | 2024-09-14 19:39 | XMS_ITS | Encounter Summary ---
Author Organization [facility] Address [address] [place] [address] Care Team Providers Care Plaster Pattern Caster Name Role Phone Benjamin Pilar YING Primary Care Provider Mary Grace Camp MD Unavailable [phone] Encounter Details Date Type Department Care Team (Late st Contact Info) Description 07/22/2018 Transcribed Document [facility] Cardiology [address] [place] [address] Mary Grace Camp MD [address] [facility] [address] [place] [id number] Social History Tobacco Use Types Packs/Day Years [...] on filedocumented in this encounter Care Teams Plaster Pattern Caster Relationship Specialty Start Date End Date Pilar Alexander APRN [address] [address] PCP - General Nurse Practitioner 08/01/23 Mary Grace Camp MD [facility]1 [facility] [place] [address] Interventional Cardiology 08/01/23 documented as of this encounter
--- OUTSIDE RECORDS SUMMARY | 2024-09-14 19:39 | XMS_ITS | Referral Summary ---
Author Organization [employer] [facility] [employer] Address [address] [place] [address] Care Team Providers Care Heating Repair Technician Name Role Phone Pilar Alexander APRN Primary Care Provider Mary Grace Camp MD Unavailable [phone] Allergies No known active allergies Medications [...] Date Todd rded Speak language other than Chinese at home Not on file 07/31/2023 Want [...] SUPP MEDICARE PART A B Care Teams Heating Repair Technician Relationship Specialty Start Date End Date Pilar Alexander, YING [address] [place] [address] PCP - General Nurse Practitioner 08/01/23 Mary Grace Camp MD [address] [facility] [place] [address] Interventional Cardiology 08/01/23
--- OUTSIDE RECORDS SUMMARY | 2024-09-14 19:39 | XMS_ITS | Encounter Summary ---
Author Organization [facility] Address [address] [facility] [place] [address] Care Team Providers Care Upholstery Handler Name Role Phone AlexanderPilar guerrero APRN Primary Care Provider Mary Grace Camp MD Unavailable [phone] Encounter Details Date Type Department Care Team (Late st Contact Info) Description 08/27/2019 Transcribed Document [facility] Cardiology [address] [place] [address] [place] [address] [place] [address] [address] [place] [id number] Social History Tobacco Use Types Packs/Day Years [...] 1. Normal study. 2. Ejection fraction 61%. /[id number] Mary Grace Camp MD NMF/AQ / NMF / MODL /[id number] documented in this encounter Plan of Treatment Not on file documented as of this encounter Visit Diagnoses Not on filedocumented in this encounter Care Teams Upholstery Handler Relationship Specialty Start Date End Date Pilar Alexander, YING [address] [address] PCP - General Nurse Practitioner 08/01/23 Mary Grace Camp MD [facility] [place] [address] Interventional Cardiology 08/01/23 documented as of this encounter
--- OUTSIDE RECORDS SUMMARY | 2024-09-14 19:39 | XMS_ITS | Clinical Summary ---
Author Organization Healthcare Address [address] [place] [address] Care Team Providers Care Radiologist Physician Name Role Phone Pilar Alexander YING Primary Care Provider [phone] Allergies No known active allergies Medications atorvastatin [...] Description 08/12/2024 Orders Only External Location [address] [place] [address] Yair Akhtar MD 08/12/2024 Orders Only External Location [address] [place] [address] Yair Akhtar MD from Last 3 Months [...] place to sleep or slept in a fci (including now)? No 08/29/2023 CAGE ASSESSMENT Answer [...] drink first t renetta in the morning (EYE-CAM SPECIALIST) to steady your nerves or to get rid of a hangover? 0 08/28/2023 CAGE Questionnaire Score 0 024 Utilities Answer Date Recorded In the past 12 months has e [employer], gas, oil, or water [employer] [place] threatened to shut off services in your [...] Wellness (AWV) 1957 [facility]-/Child/Adol SDOH Screenings 1957 [id number] Vaccine (#1) 1962 [facility]- SDOH Screenings 1975 [...] Most Recently Relevant to Health Maintenance Insurance [facility] [address] [id number] [place] [address] [facility] * Full Code (Latest Code Status on File) Date Activated Date Inactivated Comments 08/28/2023 5:05 PM 08/31/2023 7:45 PM Question Answer Comments Patient has decision-making capacity? Yes Care Teams Radiologist Physician Relationship Specialty Start Date End Date Pilar Alexander APRN [address] [place] [address] PCP - General 03/31/23
--- OUTSIDE RECORDS SUMMARY | 2024-09-14 19:39 | XMS_ITS | Encounter Summary ---
Author Organization [facility] Address [address] [place] [address] Care Team Providers Care Bacteriologist Pharmaceutical Name Role Phone Pilar Alexander APRN Primary Care Provider [phone] Reason for Referral * Consultation (Routine) - Closed Specialty Diagnoses / Procedures Referred By Alejandra jaquez Referred To Contact Surgical Oncology / Hematology and Oncology Diagnoses Colonic mass Nikko Perales MD [address] [place] [address] Phone: tel: fax: Referral ID Status Reason Start Date Expiration Date V isits Requested Visits Authorized [id number] Closed Specialty Services Required 08/04/2023 02/02/2025 1 1 Encounter Details Date Type Department Care Team (Late st Contact Info) Description 08/04/2023 Community Orders Community Practice [address] [place] [address] Nikko Perales MD [address] [facility] [place], [place] [id number] Colonic mass (Primary Dx) Social History Tobacco [...] Primary documented in this encounter Care Teams Bacteriologist Pharmaceutical Relationship Specialty Start Date End Date Pilar Alexander APRN [address] [place] [id number] PCP - General 03/31/23 documented as of this encounter
--- OUTSIDE RECORDS SUMMARY | 2024-09-14 19:39 | XMS_ITS | Clinical Summary ---
Author Organization [employer] [facility] [employer] Address [address] [place] [address] Care Team Providers Care Unit Manager Rn Name Role Phone Pilar Alexander APRN Primary Care Provider [phone] Mary Grace Camp MD Unavailable [phone] Allergies No known active allergies Medications [...] Date Todd rded Speak language other than Colombian at home Not on file 07/31/2023 Want [...] HOSPITAL MEDICARE PART A B Care Teams Unit Manager Rn Relationship Specialty Start Date End Date Pilar Alexander, NONFARM ANIMAL CARETAKER [address] [place] [address] PCP - General Nurse Practitioner 08/01/23 Mary Grace Camp MD [address] [place] [address] Interventional Cardiology 08/01/23
--- OUTSIDE RECORDS SUMMARY | 2024-09-14 19:39 | XMS_ITS | Encounter Summary ---
Author Organization Healthcare Address [address] [place] [address] Care Team Providers Care Director Of Search Engine Optimization Name Role Phone Pilar Alexander Blanca HE Primary Care Provider [phone] Encounter Details Date Type Department Care Team (Late st Contact Info) Description 08/12/2024 Orders Only External Location [address] [place] [address] Yair Akhtar MD [address] [facility] [address] [place] [address] Social History Tobacco Use Types Packs/Day Years [...] place to sleep or slept in a chcf (including now)? No 08/29/2023 CAGE ASSESSMENT Answer [...] drink first t renetta in the morning (EYE-PIN FEATHER MACHINE OPERATOR) to steady your nerves or to get [...] documented as of this encounter Care Teams Director Of Search Engine Optimization Relationship Specialty Start Date End Date Pilar Alexander APRN [address] [place] [address] PCP - General 03/31/23 documented as of this encounter
--- OUTSIDE RECORDS SUMMARY | 2024-09-14 19:39 | XMS_ITS | Encounter Summary ---
Author Organization [employer] [facility] [employer] Address [address] [place] [address] Care Team Providers Care Screening Technician Name Role Phone BenjaminPilar YING Primary Care Provider Mary Grace Camp MD Unavailable [phone] Encounter Details Date Type Department Care Team (Late st Contact Info) Description 08/08/2020 Transcribed Document [facility] Cardiology [address] [place] [address] [place] [address] [place] [address] [address] [place] [id number] Social History Tobacco Use Types Packs/Day Years [...] 1. Normal study. 2. Ejection fraction 70%. /[id number] MD AMA Leonard/AQ / AMA / MODL /[id number] documented in this encounter Plan of Treatment Not on file documented as of this encounter Visit Diagnoses Not on filedocumented in this encounter Care Teams Screening Technician Relationship Specialty Start Date End Date Pilar Alexander, COMBAT SYSTEMS OPERATOR [address] [address] PCP - General Nurse Practitioner 08/01/23 Mary Grace Camp MD [address] [place] [address] [place] [address] Interventional Cardiology 08/01/23 documented as of this encounter
[2024-09-14 19:42] LABS: Chloride 104 mmol/L (98-107); Potassium 5.4 mmoL/L (3.5-5.1); Sodium 134 mmol/L (136-145)
[2024-09-14 19:45] LABS: Anion Gap 12.4 mEq/L (5-15); Blood Urea Nitrogen 43 mg/dl (9-20); Calcium 9.7 mg/dl (8.4-10.2); Carbon Dioxide 23 mmol/L (22.0-30.0); Creatinine Clearance Estimated 74 mL/min (50-200); Estimated Glomerular Filt Rate 60 ml/min (>60); GFR (African American) 73 ML/MIN (>60); Glucose 219 mg/dl (74-100)
--- NOTE | 2024-09-14 19:50 | HMH.EDGENADL ---
Discharge Plan Disposition Patient Disposition: Home, Self-Care Prescriptions Prescriptions: No Action metoprolol succinate 50 mg tablet extended release 24 hr 50 mg PO DAILY Patient Comments: TAKE 1 TABLET BY MOUTH ONCE DAILY atorvastatin 40 mg tablet 40 mg PO DAILY coenzyme Q10 200 mg capsule 200 mg PO DAILY cholecalciferol (vitamin D3) 25 mcg (1,000 unit) capsule 25 mcg PO DAILY omega 5-bmc-lyh-fish oil [Fish Oil] 60-90-500 mg capsule 1 cap PO DAILY sfrkbbqrqhc-I4-Fjravawaf serr 1,500-400-100 mg-unit-mg tablet 1 tab PO DAILY Rx Instructions: give after food/meal One-A-Day Men's Multivitamin 400-20-300 mcg tablet 1 tab PO DAILY bumetanide 2 mg tablet 2 mg PO DAILY PRN Rx Instructions: Take when 5 lbs above normal weight losartan 50 mg tablet 50 mg PO DAILY Qty: 90 2RF spironolactone 25 mg Tablet 25 mg PO DAILY 30 Days Qty: 30 0RF dapagliflozin propanediol [Farxiga] 10 mg tablet 10 mg PO DAILY Qty: 30 0RF doxycycline hyclate 100 mg Tablet 100 mg PO BID 6 Days Qty: 12 0RF Eliquis 5 mg tablet 5 mg PO BID Qty: 60 0RF Referrals Follow up/Referrals: Pilar Alexander APRN [Primary Care Provider, Medical] - See instructions Epifanio Mendoza MD [Staff Physician, Cardiology] - See instructions Activity Restrictions/Add. Instructions Additional Instructions/Restrictions: Call your family doctor to establish care for this visit to the emergency department and schedule follow-up within 48 hours to ensure improvement. If you have any worsening of your condition or any other concerning signs or symptoms, return to the emergency department or your primary care doctor for further evaluation. Also follow-up with cardiology. Discuss whether or not they would like to do catheterization given exertional shortness of breath. Clinical Impressions Clinical Impression: Shortness of breath, Encounter for medical assessment Print Language Print Language: Croatian Discharge ED Provider: Alonso Patterson General Adult HPI General Chief complaint: Recheck/Abnormal Lab/Rx Stated complaint: Abnormal labs,K+ Time Seen by Provider: 09/14/24 19:12 Mode of Arrival: Ambulatory Source of Information: Patient Description of Symptoms (Recalled from ER Triage Doc. by RN): pt sent to ED from PCP for K+ 2.6. Pt reports SOA t/o the day today. History of Present Illness HPI narrative: Please note that above description of symptoms, in this electronic medical record under categorization of recalled from ER triage doctor by RN are reflective of an initial nursing assessment, however, is not reflective of my full history and physical exam that was personally taken and clarified. Consequentially, this preceding description of symptoms, which may include the patient's categorized chief complaint in the EMR, do not reflect my personal clinical impression, and the ultimate description of history of present illness and patient stated complaints should be deferred to this section of the note. Unless stated otherwise or congruent with this section of the note, additional signs, symptoms, or incongruence should be interpreted as inaccurate with my clinical impression. Related Data Home Medications ?Medication ?Instructions ?Recorded ?Confirmed atorvastatin 40 mg tablet 40 mg PO DAILY 03/03/23 09/14/24 coenzyme Q10 200 mg capsule 200 mg PO DAILY 03/03/23 09/14/24 cholecalciferol (vitamin D3) 25 25 mcg PO DAILY 07/14/23 09/14/24 mcg (1,000 unit) capsule metoprolol succinate 50 mg 50 mg PO DAILY 01/12/24 09/14/24 tablet,extended release 24 hr omega 0-ikz-pgc-fish oil 60 mg-90 1 cap PO DAILY 04/02/24 09/14/24 mg-500 mg capsule (Fish Oil) bumetanide 2 mg tablet 2 mg PO DAILY PRN 09/14/24 09/14/24 glucosamine DAf-K3-Iwplhgiak 1 tab PO DAILY 09/14/24 09/14/24 sergio 1,500 mg-400 unit-100 mg tablet uucudskx-pbedbypz-urwxd acid 400 1 tab PO DAILY 09/14/24 09/14/24 mcg-vit K 20 mcg-lycop 300 mcg tablet (One-A-Day Men's Multivitamin) Previous Rx's ?Medication ?Instructions ?Recorded losartan 50 mg tablet 50 mg PO DAILY #90 tabs 01/13/24 apixaban 5 mg tablet (Eliquis) 5 mg PO BID #60 tabs 09/06/24 dapagliflozin propanediol 10 mg 10 mg PO DAILY #30 tabs 09/06/24 tablet (Farxiga) doxycycline hyclate 100 mg tablet 100 mg PO BID 6 days #12 tabs 09/06/24 spironolactone 25 mg tablet 25 mg PO DAILY 30 days #30 tabs 09/06/24 Allergies Allergy/AdvReac Type Severity Reaction Status Date / Time No Known Allergies Allergy Verified 09/14/24 08:53 [facility] Disclaimer: The information contained in this section may have been updated after the patient was seen, as this information can be updated by other users. Medical History Hyperlipidemia Hypertension Prostate cancer Surgical History History of prostate surgery Hx of heart surgery Social History Smoking Status: Former smoker tobacco type: cigarettes alcohol intake: current alcohol intake frequency: 3 or more drinks per day current occupational status: retired Travel in the last 8 weeks?: None Have you lived/traveled outside US in past 30 days?: No Contact w/someone who lives/traveled outside US past 30 days?: No Exposure to someone with infectious disease in past 14 days?: No Do you have a fever (greater than 100.4 F or 38 C)?: No Have you tested positive for COVID-19?: No Exposed to someone with COVID-19 in past 14 days?: No Do you have a sore throat?: No Do you have a cough?: No Do you have any weakness?: No Do you have any diarrhea?: No Are you experiencing any unusual bleeding?: No Do you have any muscle aches/pain?: No Do you have any abdominal pain?: No Are you experiencing loss of taste or smell?: No Other Medical History Have you received the Flu Vaccine for this season: No Have you received the Pneumonia Vaccine: No ROS Obtained: Yes All systems reviewed & no additional complaints except as documented Physical Exam General General appearance: alert Head Head exam: atraumatic and normocephalic Eye Eye exam: Present normal appearance, PERRL and EOMI Neck Neck exam: Present normal inspection, full ROM and trachea midline Respiratory Respiratory exam: Absent respiratory distress, wheezes, stridor, accessory muscle use or prolonged expiratory phase Cardiovascular Cardiovascular exam: Present other (Pulses equal symmetric in upper and lower extremities) Abdominal Exam Abdominal exam: Present soft; Absent distention, tenderness or pulsatile mass Extremities Exam Extremities exam: Absent edema Neurological Exam Neurological exam: Present alert, oriented X3 and CN II-XII intact; Absent motor sensory deficit Skin Skin exam: Present warm and dry; Absent diaphoresis or erythema Medical Decision Making Medical Records Medical records reviewed: Yes I reviewed the patient's medical records. Screening: Per USPSTF and CDC recommendations, given the prevalence of disease in our region, it is our hospital?s policy to screen for HIV and viral Hepatitis for all patients aged 18 and over and those with ongoing risk factors. Alvin Inquiry Pt receiving controlled substance: No Alvin was queried for this patient: No Vital Signs: 09/14/24 19:26 09/14/24 19:31 09/14/24 19:31 Temperature 98.2 F Temperature Source Oral Pulse Rate 83 Pulse Rate [Left Radial] 73 Respiratory Rate 20 15 Blood Pressure 128/74 Blood Pressure [Right Arm] 139/88 Blood Pressure Mean 96 Blood Pressure Mean [Right Arm] 105 Blood Pressure Source [Right Arm] Automatic Cuff Blood Pressure Position [Right Arm] Sitting 02 Sat by Pulse Oximetry 98 99 Oxygen Delivery Method Room Air Lab Data Lab Results 09/14/24 19:21: WBC 11.6 H, RBC 3.46 L, Hgb 10.8 L, Hct 31.8 L, MCV 91.9, MCH 31.2, MCHC 34.0, RDW 12.6, Plt Count 327, MPV 9.6, Neut % (Auto) 64.3, Lymph % (Auto) 24.3, Crosby % (Auto) 7.2, Eos % (Auto) 2.7, Baso % (Auto) 0.6, Neut # (Auto) 7.5, Lymph # (Auto) 2.8, Crosby # (Auto) 0.8, Eos # (Auto) 0.3, Baso # (Auto) 0.1, Sodium 134 L, Potassium 5.4 H, Chloride 104, Carbon Dioxide 23, Anion Gap 12.4, BUN 43 H, Creatinine 1.20, Estimated Creat Clear 74, Estimated GFR 60, Est GFR ( Amer) 73, Glucose 219 H D, Calcium 9.7, Troponin I 0.02 09/14/24 19:21 09/14/24 19:21 Orders (Tests/Meds): ORDERS Category Date Time Status BMP [Basic Metabolic Panel] Stat Lab 09/14/24 19:21 Completed Complete Blood Count Auto Diff Stat Lab 09/14/24 19:21 Completed Trop I [Troponin I] Stat Lab 09/14/24 19:21 Completed Troponin I Q3H Lab 09/14/24 22:45 Ordered Troponin I Q3H Lab 09/15/24 01:45 Ordered Medical Decision Narrative: This is a 69-year-old male presenting with abnormal labs. Seen by PCP for follow-up today, repeat labs with hyperkalemia, told to come back to the emergency department. Patient is having no symptoms. Still short of breath as usual, has not improved much since taking meds, hydrating, etc. Patient blood pressure still open up, down, all over the place, per patient and , but no chest pain, syncope, palpitations, etc. History was obtained via conversation with patient. On arrival, patient hemodynamically stable, alert, oriented x4, appropriate, GCS 15, moving all extremities spontaneously, pupils equal and reactive to light. Full physical exam performed and significant for well-appearing male no acute distress. Normotensive, nontachycardic. Speaking in full sentences. Cardiopulmonary exam normal. No lower extremity swelling, unremarkable exam overall. Differential includes lab draw error, medication side effect, metabolic abnormality, endocrinologic abnormality, among others. Patient placed on continuous cardiac monitoring and continuous pulse ox with initial blood pressure 139/88, heart rate 73, saturation 98% on room air. Independent interpretation of EKG shows A-fib with what appears to be left anterior fascicular block. Chronic changes including T wave inversions in lateral and high lateral leads as well as inferior leads. Nothing new from previous EKG. Ventricular rate 75, QRS 117, QTc 402. Independent interpretation of workup, nonactionable CBC. Chemistry with potassium 5.4, sodium 134, normal creatinine and improving labs overall. Troponin within normal limits. reevaluation, patient still resting comfortably given patient presentation, workup, history, this most likely represents lab draw error. Because patient at baseline without signs or symptoms of clinical decompensation, deemed appropriate for discharge. Results were relayed to patient who voiced understanding and were agreeable to outpatient management and follow up. I discussed my clinical impression with patient and answered all questions. At this time, the evidence for any other entities in the differential is insufficient to warrant any further testing or ED observation. This was explained as well. Advisory was given that persistent or worsening symptoms require further evaluation. I confirmed the understanding of this discussion. Icu Manager disclaimer Much of this encounter note is an electronic clothing presser spoken language to printed text. Electronic clothing presser of the spoken language may permit errors. Although I have reviewed the note, some errors may still exist. Critical Care Critical Care Time Critical Care Time: No
[2024-09-14 20:20] LABS: Troponin I 0.02 ng/ml (0.00-0.034)
[2024-09-14 20:44] VITALS: BP 105/56; PULSE 56; RESP 16; TEMP 36.6; O2SAT 99
== END 2024-09-14 20:45 | disposition home or self-care (01) ==
PROVIDERS: Emergency Provider Emergency Medicine; PCP Nurse Practitioner Family
DX: R06.02 Shortness of breath (principal); I48.91 Unspecified atrial fibrillation; I44.4 Left anterior fascicular block; I10 Essential (primary) hypertension; E78.5 Hyperlipidemia, unspecified; Z87.891 Personal history of nicotine dependence
CPT/HCPCS: 80048; 84484; 85025; 93005; 99283

== ENCOUNTER 2024-09-15 09:29 | Emergency (ER) | payer MEDICARE, OTHER, SELFPAY ==
--- NOTE | 2024-09-15 09:39 | ECG_ITS ---
APPROVED REPORT Exam: Resting ECG HR:85 bpm ECG Measurements Heart Rate 85 AXES QRSd 114 QRS 26 QT 379 T 126 QTc 421 Conclusion ATRIAL FIBRILLATION MODERATE INTRAVENTRICULAR CONDUCTION DELAY [110+ ms QRS DURATION] ST DEVIATION AND MODERATE T-WAVE ABNORMALITY, CONSIDER LATERAL ISCHEMIA [-0.1+ mV T-WAVE IN I/aVL/V5/V6] ABNORMAL ECG UNCONFIRMED REPORT Electronically signed by : Earl De Guzman, 09/15/2024 15:21:08
[2024-09-15 09:56] VITALS: BP 115/68; PULSE 78; RESP 18; TEMP 36.6; O2SAT 98; BMI 28.5
[2024-09-15 09:59] VITALS: BP 111/62; PULSE 78; RESP 18; O2SAT 98
[2024-09-15 10:15] VITALS: BP 111/62; PULSE 80; O2SAT 100
--- NOTE | 2024-09-15 10:27 | PC.NURSE ---
is speaking with about the pt at this time.
--- NOTE | 2024-09-15 10:36 | HMH.EDGENADL ---
Discharge Plan Disposition Patient Disposition: Home, Self-Care Prescriptions Prescriptions: No Action metoprolol succinate 50 mg tablet extended release 24 hr 50 mg PO DAILY Patient Comments: TAKE 1 TABLET BY MOUTH ONCE DAILY atorvastatin 40 mg tablet 40 mg PO DAILY coenzyme Q10 200 mg capsule 200 mg PO DAILY cholecalciferol (vitamin D3) 25 mcg (1,000 unit) capsule 25 mcg PO DAILY omega 9-rqj-zbl-fish oil [Fish Oil] 60-90-500 mg capsule 1 cap PO DAILY tlafsltcrrb-Y6-Gwrrtxwmz serr 1,500-400-100 mg-unit-mg tablet 1 tab PO DAILY Rx Instructions: give after food/meal One-A-Day Men's Multivitamin 400-20-300 mcg tablet 1 tab PO DAILY bumetanide 2 mg tablet 2 mg PO DAILY PRN Rx Instructions: Take when 5 lbs above normal weight losartan 50 mg tablet 50 mg PO DAILY Qty: 90 2RF spironolactone 25 mg Tablet 25 mg PO DAILY 30 Days Qty: 30 0RF dapagliflozin propanediol [Farxiga] 10 mg tablet 10 mg PO DAILY Qty: 30 0RF doxycycline hyclate 100 mg Tablet 100 mg PO BID 6 Days Qty: 12 0RF Eliquis 5 mg tablet 5 mg PO BID Qty: 60 0RF Referrals Follow up/Referrals: Pilar Alexander APRN [Primary Care Provider, Medical] - See instructions Activity Restrictions/Add. Instructions Additional Instructions/Restrictions: As discussed in the emergency evaluation was offered however given the fact that this is her fourth ED visit last week and her symptoms are similar to unlikely that an acute workup would yield any new or different information from an emergency standpoint that was previously diagnosed. Subsequently I spoke with Dr. Mendoza and he states he personally will see you in clinic. He has 1 procedure to do currently but states he will see you in the clinic shortly after that. Clinical Impressions Clinical Impression: Dyspnea, Dizziness Print Language Print Language: Mohawk Discharge ED Provider: Miranda De Guzman General Adult HPI General Chief complaint: Shortness of Breath/Dyspnea Stated complaint: SOA dizziness about a week Time Seen by Provider: 09/15/24 09:54 Mode of Arrival: Ambulatory Source of Information: Patient Description of Symptoms (Recalled from ER Triage Doc. by RN): Pt reports SOA and dizziness for 1 week with a recent dx of A-Fib. Pt was seen in this ER last night for same symptoms and was to follow up with cardiology this date at 10:00. Pt called office and was told to come to ER. Pt denies pain at this point. History of Present Illness HPI narrative: Patient is a 69-year-old male sent from cardiology clinic for being shortness of breath and lightheaded. This is the patient's fourth emergency department visit in the last week. Was recently admitted in the hospital diagnosed with heart failure and was diuresed significantly. States he is about 15 pounds down from his weight at that point. States he felt pretty good upon being discharged was also diagnosed with atrial fibrillation and started on many new medications had many of his medications changed. However he has continued to be short of breath and have some lightheadedness. Was sent to the emergency department last night for hyperkalemia which was found to be a false laboratory test. Followed up with cardiology clinic today at 10 AM which was previously instructed told the front staff that he was short of breath he states that they checked with the providers and that he was sent to the emergency department. Patient states his breathing is much improved at the moment. Related Data Home Medications ?Medication ?Instructions ?Recorded ?Confirmed atorvastatin 40 mg tablet 40 mg PO DAILY 03/03/23 09/14/24 coenzyme Q10 200 mg capsule 200 mg PO DAILY 03/03/23 09/14/24 cholecalciferol (vitamin D3) 25 25 mcg PO DAILY 07/14/23 09/14/24 mcg (1,000 unit) capsule metoprolol succinate 50 mg 50 mg PO DAILY 01/12/24 09/14/24 tablet,extended release 24 hr omega 8-ika-kis-fish oil 60 mg-90 1 cap PO DAILY 04/02/24 09/14/24 mg-500 mg capsule (Fish Oil) bumetanide 2 mg tablet 2 mg PO DAILY PRN 09/14/24 09/14/24 glucosamine NDb-L7-Cldoadssx 1 tab PO DAILY 09/14/24 09/14/24 sergio 1,500 mg-400 unit-100 mg tablet yxttczui-kkcnapdf-lanby acid 400 1 tab PO DAILY 09/14/24 09/14/24 mcg-vit K 20 mcg-lycop 300 mcg tablet (One-A-Day Men's Multivitamin) Previous Rx's ?Medication ?Instructions ?Recorded losartan 50 mg tablet 50 mg PO DAILY #90 tabs 01/13/24 apixaban 5 mg tablet (Eliquis) 5 mg PO BID #60 tabs 09/06/24 dapagliflozin propanediol 10 mg 10 mg PO DAILY #30 tabs 09/06/24 tablet (Farxiga) doxycycline hyclate 100 mg tablet 100 mg PO BID 6 days #12 tabs 09/06/24 spironolactone 25 mg tablet 25 mg PO DAILY 30 days #30 tabs 09/06/24 Allergies Allergy/AdvReac Type Severity Reaction Status Date / Time No Known Allergies Allergy Verified 09/14/24 08:53 [facility] Disclaimer: The information contained in this section may have been updated after the patient was seen, as this information can be updated by other users. Medical History Hyperlipidemia Hypertension Prostate cancer Surgical History History of prostate surgery Hx of heart surgery Social History Smoking Status: Smoker, status unknown tobacco type: cigarettes alcohol intake: current alcohol intake frequency: 3 or more drinks per day current occupational status: retired Travel in the last 8 weeks?: None Other Medical History Have you received the Flu Vaccine for this season: No Have you received the Pneumonia Vaccine: No ROS Obtained: Yes All systems reviewed & no additional complaints except as documented Physical Exam General General appearance: alert and in no apparent distress Respiratory Respiratory exam: Present normal lung sounds bilaterally; Absent respiratory distress Cardiovascular Cardiovascular exam: Present regular rate and irregular rhythm Neurological Exam Neurological exam: Present alert and oriented X3 Medical Decision Making Medical Records Screening: Per USPSTF and CDC recommendations, given the prevalence of disease in our region, it is our hospital?s policy to screen for HIV and viral Hepatitis for all patients aged 18 and over and those with ongoing risk factors. Alvin Inquiry Pt receiving controlled substance: No Vital Signs: 09/15/24 09:56 09/15/24 09:59 09/15/24 10:15 Temperature 98 F Temperature Source Oral Pulse Rate 78 80 Pulse Rate [Left] 78 Respiratory Rate 18 18 Blood Pressure 111/62 111/62 Blood Pressure [Left Arm] 115/68 Blood Pressure Mean 85 Blood Pressure Mean [Left Arm] 83 Blood Pressure Source [Left Arm] Automatic Cuff 02 Sat by Pulse Oximetry 98 98 100 Oxygen Delivery Method Room Air Medical Decision Narrative: EKG performed I personally interpreted which shows atrial fibrillation with a ventricular rate of 85 there is a nonspecific interventricular conduction delay and there are inferior and lateral ST abnormalities which are consistent with old EKGs. No acute ischemic changes noted specifically no STEMI. I reviewed the patient's recent chart and his medication list. He had a recent echo that showed some concern for hypertrophic cardiomyopathy and recommended an MRI be performed in this patient to rule out amyloidosis. This is yet to be communicated with the patient but I did tell him about this. Additionally patients on many medications that could be causing his symptoms. He is breathing comfortably on room air has a normal respiratory exam EKG appears similar to previous EKGs. Given the fact that this is his fourth ED visit and he is already had extensive workup including CT PE echo etc. I told him that we could repeat some emergency test but is unlikely that any new abnormality would be found. Therefore with shared decision making we opted to call Dr. Mendoza and discussed the case with him. Dr. Mendoza wants to see him in clinic and will see the patient himself. Patient was subsequently discharged to go back to his cardiology clinic. Critical Care Critical Care Time Critical Care Time: No
[2024-09-15 10:48] VITALS: BP 110/70; PULSE 78; RESP 16; TEMP 36.6; O2SAT 98
== END 2024-09-15 10:51 | disposition home or self-care (01) ==
PROVIDERS: Emergency Provider Student in an Organized Health Care Education/Training Program; PCP Nurse Practitioner Family
DX: I48.91 Unspecified atrial fibrillation (principal); R06.02 Shortness of breath; R42 Dizziness and giddiness; I10 Essential (primary) hypertension; E78.5 Hyperlipidemia, unspecified; F17.210 Nicotine dependence, cigarettes, uncomplicated
CPT/HCPCS: 93005; 99283

== ENCOUNTER 2024-09-16 07:37 | Day surgery (SDC) | payer MEDICARE, OTHER, SELFPAY ==
[2024-09-16] VITALS (13 sets, daily range): BP systolic 91–150; BP diastolic 54–89; PULSE 61–78; RESP 15–18; TEMP 36.9; O2SAT 96–99; BMI 29.0
--- NOTE | 2024-09-16 07:12 | IR_ITS ---
APPROVED REPORT Patient Location: Outpatient Production Engineer Track: DO Mcmullen RT (R) PROCEDURES Right heart catheterization Left heart catheterization Left ventriculogram Selective coronary angiogram Selective engagement of the left internal mammary artery to the diagonal artery which then skipped to the LAD Selective engagement of the saphenous vein graft to the circumflex artery INDICATION Pulmonary hypertension, History of coronary bypass surgery, Angina pectoris class III-IV, Dyspnea, Informed consent was obtained prior to the procedure. COMPLICATIONS NONE Estimated Blood Loss: LESS THAN 10 ML TECHNIQUE One percent lidocaine was used to anesthetize the right groin. The right femoral artery was accessed via the Seldinger technique. A 5-Hungarian and 7 italian sheath was placed in the right femoral artery and vein respectfully. A 7 Hungarian sheath was introduced and a [place]-Kahlil catheter was floated using hemodynamic waveforms in the pulmonary artery, right ventricle , and right atrium. Saturations were obtained in the pulmonary artery and the right atrium. The JR-4 and JL-4 catheter was also used to perform left heart catheterization, left ventriculography and selective coronary angiogram. A JR4 catheter was used to selectively intubate the left internal mammary artery to the diagonal artery as well as selective engage in the saphenous vein graft to the circumflex artery. The JR4 catheter was advanced into the ventricle and a 50 mm gradient was identified upon pullback from the LV outflow tract into the aorta. At the end the procedure the apparatus was removed the groin is reprepped closure change sheath was removed and hemostasis was achieved using Perclose device patient was transferred to the postop boarding in stable condition for right femoral venous sheath removal ANGIOGRAPHIC RESULTS The left main artery Small caliber and has distal smooth 20% tapering The left anterior descending artery Is proximally normal and then has severe 90% concentric stenosis just distal to the first septal buhr mill operator and distal to the first diagonal artery. Competitive flow was identified throughout the LAD. The first diagonal artery is large and widely patent The circumflex artery Proximally occluded The right coronary artery Is a dominant vessel small caliber throughout its entire course. There is a long tubular 40% concentric stenosis throughout the midportion and distal 40% concentric stenosis. This gives rise to a large posterior lateral branch The JUAREZ ventriculogram reveals Hyperdynamic with a 50 mm gradient from the left ventricle through the LVOT and into the aorta The left ventricular end-diastolic pressure 8 mmHg CASTRO there is a widely patent graft and anastomosis onto the second diagonal artery and then skips to an LAD. Both limbs are widely patent. The second diagonal artery is a small caliber vessel but patent SVG to circumflex artery is widely patent. The quinault circumflex artery is a diffusely diseased small caliber vessel Right atrial pressure 5 mmHg Pulmonary artery pressure 35/15 Pulmonary artery occlusion pressure 12 Hemoglobin 10.7 Right atrial saturation 59% Pulmonary artery saturation 55% Aortic saturation 97% Cardiac output 3.5 L/min IMPRESSION Patent CASTRO graft to the second diagonal artery which then skips to the LAD Patent saphenous vein graft to the circumflex artery Small caliber quinault vessels as described above with moderate disease throughout the right coronary artery. The maximum diameter of the dominant right coronary artery is 2.25 mm Hyperdynamic ventricle 50 mm gradient from the left ventricle through the LVOT into the aorta. The characteristic hypertrophic cardiomyopathy intracavitary gradient is not identified Mild pulmonary hypertension Normal left side filling pressures PLAN 1. Medical management for the coronary artery disease 2. LDL less than 55 achieved high intensity statin 3. Patient still needs to be worked up for amyloidosis and possible hypertrophic cardiomyopathy. There is not a classic ski slope gradient identified in classic hypertrophic cardiomyopathy. This most likely represents hyperdynamic outflow tract from the hyperdynamic ventricle likely secondary to hypertensive heart disease 4. Continue with metoprolol and uptitrate verapamil 5. Schedule patient for EDNA and direct-current cardioversion 6. Avoid afterload reducing medicines 7. Recommend cardiac MRI and ongoing workup for infiltrative cardiomyopathy Electronically signed by : Epifanio Mendoza MD 09/16/2024 12:14:05
[2024-09-16 08:07] LABS: Basophils # 0.1 K/mm3 (0-0.2); Basophils % 0.7 % (0.1-2.0); Eosinophils # 0.2 Kmm3 (0.0-0.4); Eosinophils % 2.3 % (0.1-12.0); Hematocrit 32.2 % (42.0-52.0); Hemoglobin 10.7 g/dL (14.1-18.0); Lymphocytes # 2.8 K/mm3 (0.7-4.5); Lymphocytes % 26.6 % (10-50); Mean Corpuscular HGB Conc 33.2 g/dL (31.8-35.4); Mean Corpuscular Hemoglobin 31.1 pg (27.0-31.2); Mean Corpuscular Volume 93.6 fl (80-94); Mean Platelet Volume 9.2 fl (7.4-10.4); Neutrophils # 6.2 K/mm3 (1.8-7.8); Neutrophils % 59.4 % (37.0-80.0); Nucleated Red Blood Cells # 0 10^3/uL; Nucleated Red Blood Cells % 0 %; Platelet Count 354 K/mm3 (142-424); Red Blood Count 3.44 M/mm3 (4.60-6.20); Red Cell Distribution Width-SD 43.5 fL; White Blood Count 10.4 K/mm3 (4.8-10.8)
[2024-09-16 08:21] LABS: Chloride 105 mmol/L (98-107); Sodium 136 mmol/L (136-145)
[2024-09-16 08:22] LABS: Potassium 4.9 mmoL/L (3.5-5.1)
[2024-09-16 08:25] LABS: Anion Gap 12.9 mEq/L (5-15); Blood Urea Nitrogen 39 mg/dl (9-20); Calcium 9.5 mg/dl (8.4-10.2); Carbon Dioxide 23 mmol/L (22.0-30.0); Creatinine Clearance Estimated 73 mL/min (50-200); Estimated Glomerular Filt Rate 60 ml/min (>60); GFR (African American) 73 ML/MIN (>60); Glucose 185 mg/dl (74-100)
[2024-09-16] MEDS: 0.9 % SODIUM CHLORIDE 500 ML 25 ML IV (09:43)
[2024-09-16] MEDS: HEPARIN 1,000 UNITS/500ML NS (CATH LAB) 3000 UNIT IV (09:43)
[2024-09-16] MEDS: LIDOCAINE 1% 10ML MDV 10 ML IJ (09:43)
[2024-09-16] MEDS: diphenhydrAMINE 50MG/ML VIAL 50 MG IV (09:43)
[2024-09-16] MEDS: FENTANYL 100MCG/2ML VIAL 50 MCG IV (10:16)
[2024-09-16] MEDS: MIDAZOLAM HCL 1MG/ML 5ML VIAL 1 MG IV (10:16)
[2024-09-16] MEDS: IOPAMIDOL-370 (76%);100ML BOTTLE 70 ML IV (13:59)
[2024-09-16 14:01] LABS: CATHL Arterial O2 SAT 55.2 % (90-100); CATHL Venous O2 SAT 59.7 % (75-80)
== END 2024-09-16 13:24 | disposition home or self-care (01) ==
PROVIDERS: PCP Nurse Practitioner Family; Visit Provider Internal Medicine
PROC: 4A023N7 Measurement of Cardiac Sampling and Pressure, Left Heart, Percutaneous Approach (ICD-10-PCS; CPT 93452; principal; 2024-09-16 12:15)
PROC: 4A023N6 Measurement of Cardiac Sampling and Pressure, Right Heart, Percutaneous Approach (ICD-10-PCS; CPT 93451; 2024-09-16 12:15)
DX: I25.118 Atherosclerotic heart disease of native coronary artery with other forms of angina pectoris (principal); I50.33 Acute on chronic diastolic (congestive) heart failure; I27.20 Pulmonary hypertension, unspecified; I48.19 Other persistent atrial fibrillation; Q24.8 Other specified congenital malformations of heart; E11.9 Type 2 diabetes mellitus without complications; E78.2 Mixed hyperlipidemia; R01.1 Cardiac murmur, unspecified; R42 Dizziness and giddiness; I11.0 Hypertensive heart disease with heart failure; R06.02 Shortness of breath; Z95.1 Presence of aortocoronary bypass graft; F17.210 Nicotine dependence, cigarettes, uncomplicated; Z79.01 Long term (current) use of anticoagulants; Z79.899 Other long term (current) drug therapy; Z79.84 Long term (current) use of oral hypoglycemic drugs
CPT/HCPCS: 93461; 80048; 82810; 85025; C1725; C1760; C1769; C1894; J1200; J1644; J3010; J7040; Q9967

== ENCOUNTER 2024-09-20 09:58 | Day surgery (SDC) | payer MEDICARE, OTHER, SELFPAY ==
[2024-09-20 10:12] VITALS: BMI 28.0
[2024-09-20] MEDS: LACTATED RINGERS 1000ML 1,000 ML 50 ML IV (10:25)
[2024-09-20 10:33] VITALS: BP 156/72; PULSE 76; RESP 18; TEMP 36.2; O2SAT 97
[2024-09-20 10:36] LABS: Basophils % 0.5 % (0.1-2.0); Eosinophils # 0.1 Kmm3 (0.0-0.4); Eosinophils % 0.7 % (0.1-12.0); Hematocrit 28.9 % (42.0-52.0); Hemoglobin 9.5 g/dL (14.1-18.0); Immature Granulocytes # 0.05 10^3uL; Immature Granulocytes % 0.6 %; Lymphocytes # 1.1 K/mm3 (0.7-4.5); Lymphocytes % 12.6 % (10-50); Mean Corpuscular HGB Conc 32.9 g/dL (31.8-35.4); Mean Corpuscular Hemoglobin 31.3 pg (27.0-31.2); Mean Corpuscular Volume 95.1 fl (80-94); Mean Platelet Volume 8.7 fl (7.4-10.4); Monocytes # 1.2 K/mm3 (0.1-1.0); Monocytes % 13.4 % (1.7-9.3); Neutrophils # 6.3 K/mm3 (1.8-7.8); Neutrophils % 72.2 % (37.0-80.0); Nucleated Red Blood Cells # 0.02 10^3/uL; Nucleated Red Blood Cells % 0.2 %; Platelet Count 343 K/mm3 (142-424); Red Blood Count 3.04 M/mm3 (4.60-6.20); Red Cell Distribution Width 13.8 % (11.5-17.5); Red Cell Distribution Width-SD 46.4 fL; White Blood Count 8.7 K/mm3 (4.8-10.8)
--- NOTE | 2024-09-20 10:38 | ECG_ITS ---
APPROVED REPORT Exam: Resting ECG HR:74 bpm ECG Measurements Heart Rate 74 AXES QRSd 100 QRS 19 QT 407 T 119 QTc 434 Conclusion ATRIAL FIBRILLATION WITH ABERRANT CONDUCTION OR VENTRICULAR PREMATURE COMPLEXES ST DEVIATION AND MODERATE T-WAVE ABNORMALITY, CONSIDER LATERAL ISCHEMIA [-0.1+ mV T-WAVE IN I/aVL/V5/V6] ABNORMAL ECG UNCONFIRMED REPORT Electronically signed by : Mulugeta Bonds MD 09/21/2024 09:06:56
[2024-09-20 10:47] LABS: Chloride 103 mmol/L (98-107); INR 1.14 (0.9-1.1); Potassium 4.6 mmoL/L (3.5-5.1); Prothrombin Time 12.5 seconds (10.1-12.5); Sodium 140 mmol/L (136-145)
[2024-09-20 10:50] LABS: Anion Gap 17.6 mEq/L (5-15); Blood Urea Nitrogen 26 mg/dl (9-20); Calcium 9.2 mg/dl (8.4-10.2); Carbon Dioxide 24 mmol/L (22.0-30.0); Creatinine Clearance Estimated 73 mL/min (50-200); Estimated Glomerular Filt Rate 60 ml/min (>60); GFR (African American) 73 ML/MIN (>60); Glucose 180 mg/dl (74-100)
[2024-09-20 10:53] LABS: POC Glucose,Bedside 183 (70-110)
--- NOTE | 2024-09-20 11:00 | CA_ITS ---
APPROVED REPORT EXAM: Comprehensive 2D, Doppler, and color-flow Echocardiogram Rail Car Repairer: Dione KesslerJESSICA Ht: 5 ft 8 in Wt: 191lbs BSA: 2.00 BP: 113/66 mmHg Indications: A-FIB,CARDIOVERSION Procedure After obtaining informed consent, patient underwent transesophageal echo in the [facility]. Type of Sedation : MAC Sedation start time: 11:55 Case end Time: 12:10 Transesophageal probe was inserted and advanced into esophagus without difficulty by Dr. Pete Ivy. The EDNA was performed without complications. Synchronized Cardioversion acheived with 150 Joules after 1 attempt(s). Rhythm following Synchronized Cardioversion: Normal Sinus Rhythm Throughout the procedure, the blood pressure, pulse oximetry, cardiac rhythm, and rate were monitored. The patient tolerated the procedure without adverse effects. Recovery from conscious sedation was uneventful and vital signs were stable. Left Ventricle The left ventricle is normal size. The left ventricular systolic function is normal. The left ventricular ejection fraction is within the normal range. There is increased LV wall thickness. IVSD is 1.3 cm. There is a membranous protrusion in the proximal LVOT level, resulting in turbulent forward flow. Peak velocity is 3.5 m/s. Max gradient is 50 mmHg. There is normal LV segmental wall motion. LVEF is 65%. Right Ventricle The right ventricle is normal size. The right ventricular systolic function is normal. Atria Left atrium is mildly dilated. No thrombus is visualized in the left atrium or appendage. Right atrium is mildly dilated. The interatrial septum is intact with no evidence for an atrial septal defect. Aortic Valve The aortic valve opens well. The aortic valve is trileaflet. There is no aortic valvular stenosis. No aortic regurgitation is present. Mitral Valve The mitral valve is normal in structure. No evidence of systolic anterior motion. No evidence of mitral valve stenosis. Trace mitral regurgitation. Tricuspid Valve Tricuspid valve is grossly normal in structure and function. Mild tricuspid regurgitation. RVSP is 10 mmHg + RA pressure. Pulmonic Valve The pulmonary valve is normal in structure. Trace pulmonic regurgitation. Great Vessels The aortic root is normal in size. The ascending aorta is normal in size. Pericardium There is no pericardial effusion. Other Information Study Quality: Fair Conclusion Normal biventricular systolic function (LVEF 65%). Mild biatrial dilation. No significant valvular stenosis or regurgitation. No thrombus is visualized in the left atrium or appendage. There is a membranous protrusion in the proximal LVOT level, resulting in turbulent forward flow. Peak velocity is 3.5 m/s. Max gradient is 50 mmHg. The above findings of LVOT obstruction along with presence of a membranous protrusion in the LVOT and normal AV opening are suggestive of presence of subaortic membrane. Further evaluation with cardiac MRI (HCM + AV protocol) is suggested to evaluate for the presence of subaortic membrane and rule out HCM. Once the patient underwent EDNA demonstrating no evidence of LA or ODILON thrombus, he underwent DCCV successfully with 150 J, after which his rhythm converted from atrial fibrillation to normal sinus rhythm. Post procedurally, he remained asymptomatic and stable. He was eventually discharged in stable condition. Electronically signed by : Leslee Ivy MD 09/30/2024 00:26:54
--- NOTE | 2024-09-20 11:02 | EXP.ANES.CKL ---
[facility] Disclaimer: The information contained in this section may have been updated after the patient was seen, as this information can be updated by other users. Medical History Rash Skin cancer Colon cancer Other persistent atrial fibrillation Mixed hyperlipidemia Hyperlipidemia Hypertension Prostate cancer Surgical History History of colon resection Hx of cardiac cath Hx of heart bypass surgery History of prostate surgery Hx of heart surgery Family History Other Heart disease Social History Smoking Status: Smoker, status unknown tobacco type: cigarettes alcohol intake: current alcohol intake frequency: 3 or more drinks per day substance use type: denies use current occupational status: retired Travel in the last 8 weeks?: None [facility] Anesthesia Checklist Patient Identification Patient Identification: Arm Band Structural Data Admitted From: Home Planned Operative Procedure/s: EDNA/Cardioversion Consent for Planned Operative Procedure(s) Verified: Yes Verified Documents: Surgical Consent and History and Physical NPO Status Verified Time NPO: 00:00 Additional verifications Anesthesia Reactions: No Airway Assessment Mallampati Score:: Class II C-Spine Mobility Assessed: Yes TMJ Mobility Assessed: Yes Dentition: Good Dentition Neurological Assessment Level of Consciousness: Awake, Alert and Appropriate Anesthesia Plan Anesthesia Risk discussed: Yes Anesthesia Plan: Verified ASA Class: III Anesthesia Type: MAC
--- NOTE | 2024-09-20 12:02 | SUR.OPER ---
1157 -Pt cardioverted at 150J per [place]- shock unsuccessful. 1159 -Pt cardioverted at 200J per [place]- shock unsuccessful. 1202 -Pt cardioverted at 200J per [place] - shock successful. Pt converted to SR.
[2024-09-20 12:09] VITALS: BP 111/70; PULSE 83; RESP 18; TEMP 36.4; O2SAT 95
--- NOTE | 2024-09-20 12:18 | ECG_ITS ---
APPROVED REPORT Exam: Resting ECG HR:79 bpm ECG Measurements Heart Rate 79 AXES UT 248 P 0 QRSd 100 QRS 2 QT 400 T 121 QTc 434 Conclusion SINUS RHYTHM WITH SINUS ARRHYTHMIA WITH FIRST DEGREE AV BLOCK ST DEVIATION AND MODERATE T-WAVE ABNORMALITY, CONSIDER LATERAL ISCHEMIA [-0.1+ mV T-WAVE IN I/aVL/V5/V6] ABNORMAL ECG UNCONFIRMED REPORT Electronically signed by : Mulugeta Bonds MD 09/21/2024 09:06:41
[2024-09-20 12:19] VITALS: BP 112/71; PULSE 78; RESP 16; O2SAT 100
[2024-09-20] MEDS: APIXABAN 5MG TABLET 5 MG PO (12:33)
[2024-09-20 12:39] VITALS: BP 126/74; PULSE 79; RESP 18; TEMP 36.4; O2SAT 100
[2024-09-20 13:00] VITALS: BP 117/75; PULSE 80; RESP 16; O2SAT 100
== END 2024-09-20 13:13 | disposition home or self-care (01) ==
PROVIDERS: PCP Nurse Practitioner Family; Visit Provider Internal Medicine
PROC: (CPT 93312; principal; 2024-09-20 11:00)
DX: I48.19 Other persistent atrial fibrillation (principal); I20.89 Other forms of angina pectoris; E78.2 Mixed hyperlipidemia; I50.33 Acute on chronic diastolic (congestive) heart failure; I11.0 Hypertensive heart disease with heart failure; R01.1 Cardiac murmur, unspecified; Q24.8 Other specified congenital malformations of heart; R42 Dizziness and giddiness; E11.9 Type 2 diabetes mellitus without complications; Z95.1 Presence of aortocoronary bypass graft; Z79.01 Long term (current) use of anticoagulants; Z79.899 Other long term (current) drug therapy; Z79.84 Long term (current) use of oral hypoglycemic drugs; Z79.2 Long term (current) use of antibiotics; F17.210 Nicotine dependence, cigarettes, uncomplicated
CPT/HCPCS: 80048; 82962; 85025; 85610; 92960; 93005; 93270; 93312; 93319; J2003; J2704; J7120

== ENCOUNTER 2024-09-21 09:27 | Outpatient (CLI) | payer MEDICARE, OTHER, SELFPAY ==
--- OUTSIDE RECORDS SUMMARY | 2024-09-21 09:30 | XMS_ITS | Encounter Summary ---
Author Organization Healthcare Address [address] [place] [address] Care Team Providers Care Cable Operator Name Role Phone Pilar Alexander APRN Primary Care Provider [phone]- [phone] Encounter Details Date Type Department Care Team (Late st Contact Info) Description 08/08/2023 Lab Requisition [facility] [address] [place] [address] Yair Akhtar MD [address] [facility] [address] [place] [address] Melena Social History Tobacco Use Types Packs/Day [...] EDT) Case Report Sugical Pathology Consult Case: [id number] Authorizing Provider: Yair Akhtar MD Collected: 08/08/2023 1308 Ordering Location: [facility] Received: 08/08/2023 1308 Pathologist: Ora lAegria MD Specimen: Colon, [id number] 10:24 AM EDT [facility] Final Diagnosis LARGE INTESTINE, MASS AT 20 CM, BIOPSY (OUTSIDE CASE [id number]; COLLECTED ON 07/30/2023): - MOST CONSISTENT WITH ADENOCARCINOMA (SEE COMMENT). 10:24 AM EDT [facility] at 1024 EDT Comment Radiology study at outside hospital showed a 2.7 x 2.6 cm mass in the sigmoid colon (at 20 cm area). Therefore, the overall findings are most consistent with adenocarcinoma and segmental sigmoid colon resection is recommended 10:24 AM EDT [facility] Clinical Information K92.1 - Melena [ICD-10-CM] 10:24 AM EDT [facility] Gross Description A. [id number] Received along with a corresponding pathology report from [facility] is 1 slide labeled outside case: [id number] collected on 07/30/2023. 10:24 AM EDT [facility] Intradepartmental Consultation with Agreement Dr. Sloan has seen the case and concurs with the diagnosis. 10:24 AM EDT [facility] Note: A resident was involved in the service. I attest I examined the relevant preparations for the specimens and confirmed the diagnosis or interpretation. 10:24 AM EDT [facility] Tissue Colon structure / Unknown 08/08/2023 1:08 PM EDT 08/08/2023 1:08 PM EDT us Yair Akhtar MD LAB PATHOLOGY ORDERABLES Final Result [facility] [address] [place] [address] documented in this encounter Visit Diagnoses Diagnosis Melena Blood in stool documented in this encounter Care Teams Cable Operator Relationship Specialty Start Date End Date Pilar Alexander APRN [address] [place] [address] PCP - General 03/31/23 documented as of this encounter
--- OUTSIDE RECORDS SUMMARY | 2024-09-21 09:31 | XMS_ITS | Encounter Summary ---
Author Organization [facility] Address [address] [place] [address] Care Team Providers Care Senior Dynamics Crm Developer Name Role Phone Pilar Alexander APRN Primary Care Provider [phone]- [phone] Reason for Referral * Consultation (Routine) - Closed Specialty Diagnoses / Procedures Referred By Alejandra jaquez Referred To Contact Surgical Oncology / Hematology and Oncology Diagnoses Colonic mass Nikko Perales MD [address] [facility] [place] [address] Phone: tel: fax: Referral ID Status Reason Start Date Expiration Date V isits Requested Visits Authorized [id number] Closed Specialty Services Required 08/04/2023 02/02/2025 1 1 Encounter Details Date Type Department Care Team (Late st Contact Info) Description 08/04/2023 Community Orders Community [facility] [address] [place] [address] Nikko Perales MD [address] [facility] [place], [place] [id number] Colonic mass (Primary Dx) Social History Tobacco [...] Primary documented in this encounter Care Teams Senior Dynamics Crm Developer Relationship Specialty Start Date End Date Pilar Alexander APRN [address] [id number] PCP - General 03/31/23 documented as of this encounter
--- OUTSIDE RECORDS SUMMARY | 2024-09-21 09:31 | XMS_ITS ---
Laboratory report Created on: September 15, 2024 JIMMY MICHAEL : 1955 Sex: Male Author Organization Unknown PROBLEMS Problems List Code Description RESULTS Laboratory Orders Date Order Code Test 2024-09-05 [id number] [facility] Laboratory Results Date LOINC Test Value Unit Reference Range Interpre tation 2024-09-05 [id number] [facility] IGG N NEGATIVE 2024-09-05 93784-0 [facility] IGM ALARM NEGATIVE A
--- OUTSIDE RECORDS SUMMARY | 2024-09-21 09:31 | XMS_ITS | Encounter Summary ---
Author Organization Healthcare Address [address] [place] [address] Care Team Providers Care Travel Insurance Agent Name Role Phone Pilar Alexander Blanca HE Primary Care Provider [phone]- [phone] Encounter Details Date Type Department Care Team (Late st Contact Info) Description 08/12/2024 Orders Only External Location [address] [place] [address] Yair Akhtar MD [address] [facility] [address] [place] [address] Social History Tobacco Use Types Packs/Day Years [...] drink first t renetta in the morning (EYE-CASINO SLOT SUPERVISOR) to steady your nerves or to get [...] documented as of this encounter Care Teams Travel Insurance Agent Relationship Specialty Start Date End Date Pilar Alexander APRN [address] [place] [address] PCP - General 03/31/23 documented as of this encounter
--- OUTSIDE RECORDS SUMMARY | 2024-09-21 09:31 | XMS_ITS | Referral Summary ---
Author Organization [facility] Address [address] [place] [address] Care Team Providers Care Measurement Advisor Name Role Phone Pilar Alexander APRN Primary Care Provider [phone] Mary Grace Camp MD Unavailable [phone] Allergies No known active allergies Medications [...] Date Todd rded Speak language other than Greek at home Not on file 07/31/2023 Want [...] SUPP MEDICARE PART A B Care Teams Measurement Advisor Relationship Specialty Start Date End Date Pilar Alexnader, YING [address] [place] [address] PCP - General Nurse Practitioner 08/01/23 Mary Grace Camp MD [address] [place] [address] Interventional Cardiology 08/01/23
--- OUTSIDE RECORDS SUMMARY | 2024-09-21 09:31 | XMS_ITS | Encounter Summary ---
Author Organization [facility] [facility] Address [address] [place] [address] Care Team Providers Care Raw Cheese Worker Name Role Phone BenjaminPilar YING Primary Care Provider Mary Grace Camp MD Unavailable [phone] Encounter Details Date Type Department Care Team (Late st Contact Info) Description 08/08/2020 Transcribed Document [facility] Cardiology [address] [place] [address] [place] [address] [place] [address] [address] [place] [id number] Social History Tobacco Use Types Packs/Day Years [...] 1. Normal study. 2. Ejection fraction 70%. /[id number] MD AMA Leonard/AQ / AMA / MODL /[id number] documented in this encounter Plan of Treatment Not on file documented as of this encounter Visit Diagnoses Not on filedocumented in this encounter Care Teams Raw Cheese Worker Relationship Specialty Start Date End Date Pilar Alexander, CREW CLERK [address] [address] PCP - General Nurse Practitioner 08/01/23 Mary Grace Camp MD [address] [place] [address] [place] [address] Interventional Cardiology 08/01/23 documented as of this encounter
--- OUTSIDE RECORDS SUMMARY | 2024-09-21 09:31 | XMS_ITS | Encounter Summary ---
Author Organization Healthcare Address [address] [place] [address] Care Team Providers Care Environmental Scientists Name Role Phone Pilar Alexander Blanca HE Primary Care Provider [phone]- [phone] Encounter Details Date Type Department Care Team (Late st Contact Info) Description 08/12/2024 Orders Only External Location [address] [place] [address] Yair Akhtar MD [address] [facility] [address] [place] [address] Social History Tobacco Use Types Packs/Day Years [...] Have you had a drink first t rneetta in the morning (EYE-GEAR HOBBER SET UP OPERATOR) to steady your nerves or to [...] documented as of this encounter Care Teams Environmental Scientists Relationship Specialty Start Date End Date Pilar Alexander APRN [address] [place] [address] PCP - General 03/31/23 documented as of this encounter
--- OUTSIDE RECORDS SUMMARY | 2024-09-21 09:31 | XMS_ITS | Clinical Summary ---
Author Organization [facility] [facility] [employer] Address [address] [place] [address] Care Team Providers Care Film Flat Inspector Name Role Phone Pilar Alexander APRN Primary Care Provider Mary Grace Camp MD Unavailable [phone] Allergies No known active allergies Medications [...] Date Todd rded Speak language other than Emir[place] at home Not on file 07/31/2023 Want [...] 07/3108/01/2023 Influenza Vaccine (Season Ended) 2024 Insurance [facility] MEDICARE PART A B Care Teams Film Flat Inspector Relationship Specialty Start Date End Date Pilar Alexander, SAUSAGE MIXER [address] [place] [address] PCP - General Nurse Practitioner 08/01/23 Mary Grace Camp MD [address] [facility] [place] [address] Interventional Cardiology 08/01/23
--- OUTSIDE RECORDS SUMMARY | 2024-09-21 09:31 | XMS_ITS | Data Portability ---
Author Organization [place] [facility] [place] AD[place] Address [address] [place] [address] Care Team Providers Care Specialty Foods Cook Name Role Phone ROMA LEO Primary Care [...] .5 Not Available [facility] ([facility]) [address] , [place], [address], 07/30/2023 10:54:27 07/30/19 24 07/30/2023 CBC AUTO NO DIFF (HEMO GRAM) RBC 4.7 M/mm3 4.7-6. 1 Not Available [facility] ([facility]) [address], [place], [address], 07/30/2023 10:54:27 07/30/19 24 07/30/2023 CBC AUTO NO DIFF (HEMO GRAM) HGB 14.9 gm/dL 13.5-1 8.0 Not Available [facility] ([facility]) [address] , [place], [address], 07/30/2023 10:54:27 07/30/19 24 07/30/2023 CBC AUTO NO DIFF (HEMO GRAM) HCT 44.1 % 42.0-5 2.0 Not Available [facility] ([facility]) [address], [place], [address], 07/30/2023 10:54:27 07/30/19 24 07/30/2023 CBC AUTO NO DIFF (HEMO GRAM) MCV 93.4 fL 78-100 Not Available [facility] ([facility]) [address], [place], [address], 07/30/2023 10:54:27 07/30/19 24 07/30/2023 CBC AUTO NO DIFF (HEMO GRAM) MCH 31.6 pg 27-31 high Not Available [facility] ([facility]) [address], [place], [address], 07/30/2023 10:54:27 07/30/19 24 07/30/2023 CBC AUTO NO DIFF (HEMO GRAM) MCHC 33.8 g/dL 32-36 Not Available [facility] ([facility]) [address], [place], [address], 07/30/2023 10:54:27 07/30/19 24 07/30/2023 CBC AUTO NO DIFF (HEMO GRAM) RDW 12.3 % 11.5-1 4.0 Not Available [facility] ([facility]) [address] [place], [address], 07/30/2023 10:54:27 07/30/19 24 07/30/2023 CBC AUTO NO DIFF (HEMO GRAM) platelet count 185 K/uL 150-45 0 Not Available [facility] ([facility]) [address] [place], [address], 07/30/2023 10:54:27 07/30/19 24 07/30/2023 CBC AUTO NO DIFF (HEMO GRAM) MPV 9.7 fL 6-9.5 high Not Available [facility] ([facility]) [address] , [place], [address], 07/30/2023 10:54:27 07/30/19 24 07/30/2023 CBC AUTO NO DIFF (HEMO GRAM) manual differential NO Not Available [facility] ([facility]) [address], [place], [address], 07/30/2023 10:54:27 07/30/19 24 07/30/2023 PT (PROT HROMB IN TIME) W INR prothrombin time 10.1 secon ds 9.3-11 .4 Not Available [facility] ([facility]) [address], [place], [address], 07/30/2023 11:23:19 07/30/19 24 07/30/2023 PT (PROT [...] s Not Available [facility] ([facility]) [address], [place], [address], 07/30/2023 11:23:19 07/30/19 24 07/30/2023 COMP METAB OLIC PANEL sodium 139 mmol/ L 136-14 5 Not Available [facility] ([facility]) [address], [place], [address], 07/30/2023 11:34:15 07/30/19 24 07/30/2023 COMP METAB OLIC PANEL potassium 4.5 mmol/ L 3.6-5. 0 Not Available [facility] ([facility]) [address], [place], [address], 07/30/2023 11:34:15 07/30/19 24 07/30/2023 COMP METAB OLIC PANEL chloride 103 mmol/ L 98-107 Not Available [facility] ([facility]) [address] , [place], [address], 07/30/2023 11:34:15 07/30/19 24 07/30/2023 COMP METAB OLIC PANEL carbon dioxide 26.6 mmol/ L 21.0-3 2.0 Not Available [facility] ([facility]) [address] , [place], [address], 07/30/2023 11:34:15 07/30/19 24 07/30/2023 COMP METAB OLIC PANEL anion gap 13.9 Not Available [facility] ([facility]) [address] , [place], [address], 07/30/2023 11:34:15 07/30/19 24 07/30/2023 COMP METAB OLIC PANEL glucose 121 mg/dL 70-120 high Not Available [facility] ([facility]) [address] , [place], [address], 07/30/2023 11:34:15 07/30/19 24 07/30/2023 COMP METAB OLIC PANEL BUN 15 mg/dL 7-18 Not Available [facility] ([facility]) [address] , [place], [address], 07/30/2023 11:34:15 07/30/19 24 07/30/2023 COMP METAB OLIC PANEL creatinine 1.1 mg/dL 0.6-1. 3 Not Available [facility] ([facility]) [address] , [place], [address], 07/30/2023 11:34:15 07/30/19 24 07/30/2023 COMP METAB OLIC PANEL glomerular filtration rate >60 mlper min 60- Not Available [facility] ([facility]) [address] , [place], [address], 07/30/2023 11:34:15 07/30/19 24 07/30/2023 COMP METAB OLIC PANEL total protein 7.2 g/dL 6.4-8. 2 Not Available [facility] ([facility]) [address] , [place], [address], 07/30/2023 11:34:15 07/30/19 24 07/30/2023 COMP METAB OLIC PANEL albumin 4.3 g/dL 3.4-5. 0 Not Available [facility] ([facility]) [address] , [place], [address], 07/30/2023 11:34:15 07/30/19 24 07/30/2023 COMP METAB OLIC PANEL globulin 2.9 Not Available [facility] ([facility]) [address] , [place], [address], 07/30/2023 11:34:15 07/30/19 24 07/30/2023 COMP METAB OLIC PANEL alb/glob ratio 1.5 0.7-2 Not Available [facility] ([facility]) [address] , [place], [address], 07/30/2023 11:34:15 07/30/19 24 07/30/2023 COMP METAB OLIC PANEL calcium 9.2 mg/dL 8.5-10 .5 Not Available [facility] ([facility]) [address] [place], [address], 07/30/2023 11:34:15 07/30/19 24 07/30/2023 COMP METAB OLIC PANEL bilirubin total 0.70 mg/dL 0.10-1 .00 Not Available [facility] ([facility]) [address], [place], [address], 07/30/2023 11:34:15 07/30/19 24 07/30/2023 COMP METAB OLIC PANEL AST (SGOT) 35 U/L 0-37 Not Available [facility] ([facility]) [address], [place], [address], 07/30/2023 11:34:15 07/30/19 24 07/30/2023 COMP METAB OLIC PANEL ALT (SGPT) 76 U/L 0-65 high Not Available [facility] ([facility]) [address], [place], [address], 07/30/2023 11:34:15 07/30/19 24 07/30/2023 COMP METAB OLIC PANEL alk phosphatase 98 U/L 46-116 Not Available [facility] ([facility]) [address], [place], [address], 07/30/2023 11:34:15 07/30/19 24 07/31/2023 CEA cea 3.9 NG/mL 0.0-4. 7 Nonsm okers <3.9 Smoke rs <5.6 . 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 Value s obtai geno with diffe rent assay metho ds or kits canno t be used inter childs chandan . Resul ts canno t be inter prete d as absol [place] evide nce of the prese nce or absen ce of [place] [facility] se. Perfo rmed at: [facility] [address] [facility], [place] [id number] [facility] Lab Direc tor: Alexandro aguilar PhD, Phone : [phone] Not Available [facility] ([facility]) [address], [place], [address], 07/31/2023 13:12:11 07/30/19 24 07/30/2023 CT, chest , w/ contr ast [facility] [address] [place] [address] Phone: Fax: Name: RONALD MARQUEZ Exam Date: 07/30/19 24 : 958 Age 68 years Gender : M Access ion: [id number] Physic myron: CASE, CHEY [facility]ili [facility]: [place] Facili ty HSV: Outpat ient Exam: [...] as low as reason ably achiev able, (ERICK ). Indivi dualiz ed dose reduct ion [...] Thank you for referr RONALD Ortega to [facility] al. Legall y authen ticate d by POPE JEREMY Julio 2023-0 07-29 12:28: 02 CC'ed Logic: Orderi ng Provid er: CASE CHEY Attend ing Provid er: CASE CHEY Admitt ing Provid er: BLAYNE GUERRIER [email or web address] [facility] - Physical Therapy [address] [facility], [place], [address], 08/06/2023 15:30:59 Result Notes None recorded. Procedures Surgical History Date Name Laterality Status Provider Name and Address Organization Details Recorded Time 2 Cancer Surgery completed Hilary RODRIGUEZ [facility] [place] 08/06/2023 10:26:40 2 Cancer Surgery completed Hilary RODRIGUEZ [facility] [place] 08/06/2023 10:26:26 procedure on heart completed Hilary Grier [place] - [facility] [place] & [place] 08/06/2023 10:27:32 Imaging Results None recorded. Procedure [...] and Address Organization Details Last Updated DateTime 172.72 cm 30.7 kg/m2 48453.3 g 98.9 [degF] 98 % 98 % 74 /min 211 mm[Hg] 101 mm[Hg] Hilary Grier [facility] [place] 10:23:49 Social History Question Answer Notes LastModified by [employer] ion Details LastModified Time Tobacco Smoking Status Current Every Day Smoker Hilary Grier [facility], [facility] & [place] 08/06/2023 10:24:11 Do You Have An Advance Directive? Yes [email or web address] Information not available 08/06/2023 Are You Blind Or Do You Have Difficulty Seeing? No [email or web address] Information not available 08/06/2023 What Is Your Level Of Caffeine Consumption? None [email or web address] Information not available 08/06/2023 What Was The Date Of Your Most Recent Tobacco Screening? 08/03/2023 [email or web address] Information not available 08/06/2023 Are You Passively Exposed To Smoke? No [email or web address] Information not available 08/06/2023 How Much Tobacco Do You Smoke? 0.5 PPD [email or web address] Information not available 08/06/2023 Has Tobacco Cessation Counseling Been Provided? No [email or web address] Information not available 08/06/2023 How Many Years Have You Smoked Tobacco? 40 [email or web address] Information not available 08/06/2023 Sex: Unknown Functional Status Question Answer Note LastModified by Organizat ion Details LastModified Time Do you use any illicit or recreational drugs? No [email or web address] Information not available 08/06/2023 Do you or have you ever used any other forms of tobacco or nicotine? No [email or web address] Information not available 08/06/2023 What is your level of alcohol consumption? Moderate [email or web address] Information not available 08/06/2023 Do you or have you ever used smokeless tobacco? Never used smokeless tobacco [email or web address] Information not available 08/06/2023 What is your exercise level? Occasional Information not available 08/06/2023 Mental Status Question Answer Note LastModified by Organization D etails LastModified Time Do you feel stressed (tense, restless, nervous, or anxious, or unable to sleep at night)? [id number] Information not available 08/06/2023 Family History Relationship Description Onset Age of this Age Resolved Age Notes LastModified by Organization Details LastModified Time Father Carcinoma in situ of urinary bladder primar y [email or web address] Not available 08/06/2023 10:25:15 Father Carcinoma of prostate primar y 19 yrs apart from bladde r [email or web address] Not available 08/06/2023 10:25:38 Medical History Condition Response Hypertension Y High Cholesterol Y Past Encounters Encounter ID Performer Location Encounter Start Date Encounter Closed Date Diagnosis/Indication Diagnosis SNOMED-CT Code Diagnosis ICD10 Code Diagnosis Note [id number] Nikko Perales MD [facility] Oncology and Hematolog y [address] [place] [address] 08/06/2023 10:04:38 08/06/2023 11:18:46 Rectal mass [id number] R19.00 Colonoscop y on July 30, 2023 [...] Hemoglobin 14.9 and hematocrit 44.1. Platelet count 037515. Normal renal function testing with GFR greater [...] Patient has appointmen t with Colorectal surgery [facility]. Will follow-up evaluation . Health Concerns Section Related Observation LastModified by Organization Detai ls LastModified Time None Recorded Concern Status LastModified by Organization Details LastModified Time None Recorded Advance Directives Directive Y: Payers Insurance Date Sequence Insurance Name Policy Number Policy Swenson Covered Member ID Swenson Member ID Guarantor Name 08/06/2023 2 [employer] [place] [id number] Sal[place]ón Coll[place] 08/09/2024 1 [place] Sal[place] Coll[place] [id number] Salomón Colladoand 08/06/2023 2 [employer] HE[employer]CARE (MEDICARE SUPPLEMENT) Salomón Colladoand [id number] Salomón Colladoand 08/17/2024 2 CIGNA SUPPLEMENTAL - [employer] HE[employer] AND LIFE INSURANCE (MEDICARE SUPPLEMENT) Salomón Colladoand [id number] Salomón Coll[place]and 07/28/2023 3 CIGNA SUPPLEMENTAL - [employer] (MEDICARE SUPPLEMENT) Salomón Rios Raz [id number] Salmoón Coll[place]and Notes Date Note Type Note Provider [...] Hemoglobin 14.9 and hematocrit 44.1. Platelet count 532625. Normal renal function testing with GFR greater [...] genetic testing. Will follow-up Nikko Perales MD [address], [place], [address], [facility] - [facility] [place] & [place] 08/06/2023 11:18:01
--- OUTSIDE RECORDS SUMMARY | 2024-09-21 09:31 | XMS_ITS | Encounter Summary ---
Author Organization [email or web address] Address [address] [facility] [place] [address] Care Team Providers Care Neurological Surgery Teacher Name Role Phone AlexanderPilar guerrero APRN Primary Care Provider [phone] Mary Grace Camp MD Unavailable [phone] Encounter Details Date Type Department Care Team (Late st Contact Info) Description 08/27/2019 Transcribed Document [facility] Cardiology [address] [place] [address] [place] [address] [place] [address] [address] [place] [id number] Social History Tobacco Use Types Packs/Day Years [...] 1. Normal study. 2. Ejection fraction 61%. /[id number] Mary Grace Camp MD NMF/AQ / NMF / MODL /[id number] documented in this encounter Plan of Treatment Not on file documented as of this encounter Visit Diagnoses Not on filedocumented in this encounter Care Teams Neurological Surgery Teacher Relationship Specialty Start Date End Date Pilar Alexander, YING [address] [address] PCP - General Nurse Practitioner 08/01/23 Mary Grace Camp MD [facility] [place] [address] Interventional Cardiology 08/01/23 documented as of this encounter
--- OUTSIDE RECORDS SUMMARY | 2024-09-21 09:31 | XMS_ITS | Clinical Summary ---
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 0 08/28/2023 CAGE Questionnaire Score 0 024 Utilities Answer Date Recorded In the past 12 months has e [employer], gas, oil, or water Schedule [employer] threatened to shut off services in your [...] Wellness (AWV) 1955 [facility]-/Child/Adol SDOH Screenings 1955 GJX-JIRNP-14 Vaccine (#1) 1962 [facility]- SDOH Screenings 1975 [...] Most Recently Relevant to Health Maintenance Insurance [facility] [address] [id number] [place] [address] [facility] Advance Directives * Full Code (Latest Code Status on File) Date Activated Date Inactivated Comments 08/28/2023 5:05 PM 08/31/2023 7:45 PM Question Answer Comments Patient has decision-making capacity? Yes Care Teams Reimbursement Liaison Relationship Specialty Start Date End Date Pilar Alexander APRN [address] [place] [address] PCP - General 03/31/23
--- OUTSIDE RECORDS SUMMARY | 2024-09-21 09:31 | XMS_ITS | Encounter Summary ---
Author Organization [employer] Address [address] [place] [address] Care Team Providers Care Handkerchief Sample Clerk Name Role Phone Benjamin Pilar YING Primary Care Provider [phone] Mary Grace Camp MD Unavailable [phone] Encounter Details Date Type Department Care Team (Late st Contact Info) Description 07/22/2018 Transcribed Document [facility] Cardiology [address] [place] [address] Mary Grace Camp MD [address] [facility] [address] [place] [id number] Social History Tobacco Use Types Packs/Day Years [...] on filedocumented in this encounter Care Teams Handkerchief Sample Clerk Relationship Specialty Start Date End Date Pilar Alexander APRN [address] [address] PCP - General Nurse Practitioner 08/01/23 Mary Grace Camp MD [facility] [address] Interventional Cardiology 08/01/23 documented as of this encounter
--- NOTE | 2024-09-21 09:45 | CA_ITS ---
FINAL REPORT CLINICAL HISTORY: CABG, DM, HTN, HLD, exsmoker, FINDINGS: RIGHT CAROTID: CCA PSV -78 cm/sec ICA PSV -112 cm/sec ICA/CCA PSV ratio -1.7. Comments: Mild plaque disease is noted. LEFTCAROTID: CCA PSV -77. cm/sec ICA PSV -121. cm/sec ICA/CCA PSV ratio -2.1. Comments: Mild plaque disease is noted. Antegrade flow is seen within the vertebral arteries. IMPRESSION: Carotid stenosis classified less than 50% Reviewed, Interpreted and Dictated by Janeth Jones MD Transcribed by Kendy Galindo Authenticated and [facility]
--- NOTE | 2024-09-21 10:30 | MR_ITS ---
APPROVED REPORT Specialty Department Supervisor: CLINICAL INDICATION Evaluation for HCM vs. subaortic membrane, LVOT obstruction TECHNIQUE Image Acquisition: Cardiac magnetic resonance (CMR) was performed on Siemens Espree MRI 1.5T scanner. Software platform sequences were performed using the Siemens CoMentis MR B19 platform. A set of three-plane, low-resolution, large [id number]-ovhe localizers were initially acquired. Then axial, coronal, sagittal TrueFISP, as well as axial HASTE images, were obtained. These were followed by gated TrueFISP breathold cinematic sequences obtained in the short axis with 8 mm slices and 2 mm gaps, 2-chamber (vertical long axis), 3-chamber, 4-chamber (horizontal long axis). A bolus of contrast was injected intravenously with first-pass sequences obtained in the short axis and four-chamber planes. After approximately 10 minutes, a TI weathercaster sequence was performed to determine the optimal TI time. Using the optimized TI time, delayed contrast enhancement segmented inversion???recovery TurboFLASH sequences were obtained in the short axis, 2-chamber, 3-chamber, and 4-chamber projections. 2D-velocity phase mapping was performed. Functional parameters were calculated by offline analysis on an independent workstation ([employer], [employer] Contrast: ProHance??? (Gadoteridol) FINDINGS MORPHOLOGY AND FUNCTION Left ventricle: The left ventricle is normal in size. The indexed left ventricular end-diastolic volume (LVEDVi) is 80 ml/m2 (reference range 57-105 ml/m2 in males, 56-96 ml/m2 in females). Normal left ventricular systolic function is present. There is increased left ventricular wall thickness. Maximum LV wall thickness is 12.5 mm. There is a small, linear myocardial mass extending into the LVOT, at the level of which there is evidence of accelerated velocity/gradient. A full subaortic membrane is not clearly visualized. There are no regional wall motion abnormalities noted. LVEF is calculated at 64.9% (reference range 57-77%). Right ventricle: The right ventricle is normal in size. The indexed right ventricular end-diastolic volume (RVEDVi) is 78 ml/m2 (reference range 61-121 ml/m2 in males, 48-112 ml/m2 in females). Normal right ventricular systolic function is present. RVEF is calculated at 54.7% (reference range 52-72% in males, 51-71% in females). Atria: The left atrium is severely dilated. The maximum indexed left atrial volume is 61 ml/m2 (reference range 26-52 ml/m2 in males, 27-53 ml/m2 in females). The right atrium is mildly dilated. The maximum indexed right atrial volume is 35 ml/m2. Aorta: The diameter of the aortic annulus is normal, measuring 27 mm (coronal view reference range 21-30 mm in males, 19-27 mm in females). The diameter of the aortic sinus is normal, measuring 32 mm (coronal view reference range 25-42 mm in males, 24-36 mm in females). The diameter of the sinotubular junction is normal, measuring 26 mm (coronal view reference range 18-32 mm in males, 18-28 mm in females). The diameters of the ascending and descending thoracic aorta are normal. Main pulmonary artery: The main pulmonary artery diameter is normal. Pericardium: The pericardial thickness is normal. The pericardial thickness measures 1.0 mm (normal < 4.0 mm). There is no pericardial effusion. VALVES There is no significant valvular stenosis or regurgitation of the mitral, aortic, tricuspid, or pulmonic valve noted visually. The aortic valve is trileaflet. The aortic valve leaflets open well. There is no systolic anterior motion of the mitral valve. Ratio of pulmonary to systemic flow, Qp:Qs ratio = 1.06 (normal < or = 1.2, hemodynamically significant shunt > 1.5), demonstrating no evidence of hemodynamically significant shunt. TISSUE CHARACTERIZATION Resting Perfusion: Normal myocardial blood flow at rest. No evidence of resting hypoperfusion. Myocardial Fibrosis and/or edema: Normal gadolinium kinetics are present. No evidence of late gadolinium enhancement is noted, consistent with absence of myocardial scarring, infarction, or necrosis. T2-weighted imaging demonstrates no evidence of myocardial edema or inflammation. OTHER Bilateral pleural effusions are present. IMPRESSION Fair image quality due to motion artifact. Normal LV size with normal LV systolic function. LVEDVi= 80 ml/m2 and LVEF= 64.9%. Increased left ventricular wall thickness. Maximum LV wall thickness is 12.5 mm. Small, linear myocardial mass extending into the LVOT, at the level of which there is evidence of accelerated velocity/gradient. However, a full subaortic membrane is not clearly visualized in this study. Normal RV size with normal RV systolic function. RVEDVi= 78 ml/m2 and RVEF= 54.7%. Biatrial enlargement. No significant valvular stenosis or regurgitation. No evidence of MV LOWELL. No CMR evidence of myocardial scarring, infarction, or necrosis. No evidence of myocardial edema or inflammation. Perfusion analysis demonstrates normal blood flow at rest with no evidence of resting hypoperfusion. Ratio of pulmonary to systemic flow, Qp:Qs ratio = 1.06 (normal < or = 1.2, hemodynamically significant shunt > 1.5), demonstrating no evidence of hemodynamically significant shunt. Bilateral pleural effusions are present. Overall, the CMR demonstrates normal biventricular systolic function. There is no evidence of HCM or infiltrative cardiomyopathy. The presence of a small, linear myocardial mass extending into the LVOT raises concern for subaortic membrane. Correlation with EDNA results, as well as clinical findings, is suggested. COMPARISON None CRITICAL RESULT None COMMUNICATION The above findings were relayed to the patient at the time of the routine outpatient cardiology follow-up visit, prior to dictation of this report. The findings of this cardiac MR were reviewed, reported, and signed by Pete Ivy MD (Caterer Helper). Conclusion Electronically signed by : Leslee Ivy MD 09/30/2024 01:10:20
[2024-09-21] MEDS: 0.9 % SODIUM CHLORIDE 50 ML VIAL 20 ML IV (11:44)
[2024-09-21] MEDS: SODIUM CHLORIDE 0.9% 10ML SYR (RAD ONLY) 10 ML IV (11:44)
[2024-09-21] MEDS: GADOTERIDOL INJ 20ML SYRINGE 19 ML IV (11:44)
== END 2024-09-21 23:59 | disposition home or self-care (01) ==
LOC: RT 09:28
PROVIDERS: PCP Nurse Practitioner Family; Visit Provider Internal Medicine
DX: I65.23 Occlusion and stenosis of bilateral carotid arteries (principal); I11.0 Hypertensive heart disease with heart failure; I50.33 Acute on chronic diastolic (congestive) heart failure; I20.89 Other forms of angina pectoris; E78.2 Mixed hyperlipidemia; I48.19 Other persistent atrial fibrillation; E11.9 Type 2 diabetes mellitus without complications; Z95.1 Presence of aortocoronary bypass graft; Z87.891 Personal history of nicotine dependence
CPT/HCPCS: 75561; 93880; A9576